=== PATIENT | female | born 1990 | race Caucasian/White ===

== ENCOUNTER 2017-02-25 07:02 | Emergency (ER) | payer MEDICAID ==
[2017-02-25] MEDS ORDERED: HYDROmorphone 0.5 MG/0.5 ML Syringe IVPUSH ONE (07:25)
[2017-02-25] MEDS ORDERED: Ondansetron 4 MG/2 ML SDV IVPUSH ONE (07:25)
[2017-02-25] MEDS ORDERED: Sodium Chloride 0.9% 1,000 ML IV SCH (07:30)
--- NOTE | 2017-02-25 07:31 | EDM.PDOC ---
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 One hour ago she developed sudden onset of severe lower abdominal cramping primarily in the suprapubic region. States is a lot of pressure in the rectal area and she's feels like she needs to have a bowel movement but could not. She has no genitourinary complaints. She reports she had an ultrasound on Tuesday but has not been given the results of this. She reports that she appreciated pinkish colored mucus on wiping this morning. Pain does have a strong colicky component and is rather continuous. No previous abdominal surgeries. At present she reports pain is 4-5 out of 10. Mild associated nausea. Onset: Today Onset Date: 02/25/17 Onset Time: 06:00 Duration: Hour(s): Location: Reports: Abdomen (Suprapubic abdomen) Quality: Reports: Ache, Other (Strong colicky component to the pain) Severity: Moderate Improves with: Reports: None (Currently rates pain as 4-5 out of 10.) Worsens with: Reports: None Context: Denies: Activity, Exercise, Lifting, Sick Contact, Trauma, Other Associated Symptoms: Reports: Nausea/Vomiting (Nausea without vomiting). 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 (see below) (None) Abdominal Pain Score (Numeric/FACES): 5 - Related Data Allergies Allergy/AdvReac Type Severity Reaction Status Date / Time phenobarbital Allergy Unknown Rash Verified 02/25/17 07:14 latex Allergy Rash Verified 02/25/17 07:14 nitrofurantoin Allergy Rash Verified 02/25/17 07:14 [From Macrobid] nitrofurantoin Allergy Rash Verified 02/25/17 07:14 macrocrystalline [From Macrobid] Home Meds: Home Meds Cephalexin [Keflex] 500 mg PO TID #24 capsule 02/25/17 [Rx] oxyCODONE HCl/Acetaminophen [Percocet 5-325 mg Tablet] 1 - 2 each PO Q4H PRN # 10 tablet 02/25/17 [Rx] Past Medical History - Past Health History Medical/Surgical History: Denies Medical/Surgical History Other Cardiovascular History: Induced HTN 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: , Other (See Below) : 3 Para: 2 (2 normal vaginal deliveries.) Other OB/BYN History: ovarian cyst Neurological History: Reports: Other (See Below) Psychiatric History: Reports: Anxiety, Depression, PTSD Endocrine/Metabolic History: Reports: Obesity/BMI 30+ - Past Surgical History HEENT Surgical History: Reports: Myringotomy w Tube(s) Social & Family History - Family History Family Medical History: Noncontributory - Tobacco Use Smoking Status *Q: Unknown Ever Smoked Years of Tobacco use: 12 Packs/Tins Daily: 0.5 Used Tobacco, but Quit: No Second Hand Smoke Exposure: Yes - Recreational Drug Use Recreational Drug Use: No - Living Situation & Occupation Living situation: Reports: Single, with Family, Other Occupation: Employed ED ROS GENERAL - Review of Systems Review Of Systems: See Below Constitutional: Reports: Other (Does appear to be in significant amount of discomfort.). Denies: Fever, Chills, Weakness, Night Sweats, Decreased Appetite , Weight Loss HEENT: Reports: No Symptoms Respiratory: Reports: No Symptoms Cardiovascular: Reports: No Symptoms Endocrine: Reports: Fatigue GI/Abdominal: Reports: Abdominal Pain : Reports: Frequency, Other (Pelvic pressure discomfort with a feeling of need to defecate but unable to do so.). Denies: Dysuria, Flank Pain, Hematuria , Incontinence, Irregular Menses, Pain, Urgency, Urinary Retention Musculoskeletal: Reports: No Symptoms Skin: Reports: No Symptoms Neurological: Reports: No Symptoms Psychiatric: Reports: No Symptoms Hematologic/Lymphatic: Reports: No Symptoms Immunologic: Reports: No Symptoms ED EXAM - Physical Exam Exam: See Below Exam Limited By: No Limitations General Appearance: Alert, WD/WN, Moderate Distress Respiratory/Chest: No Respiratory Distress, Lungs Clear, Normal Breath Sounds, Chest Non-Tender Cardiovascular: Normal Peripheral Pulses, Regular Rate, Rhythm, No Edema, No Gallop, No Murmur GI/Abdominal Exam: Soft, Non-Tender, No Organomegaly (Bowel sounds are quiet sent.), No Distention, No Abnormal Bruit, No Mass, Pelvis Stable, Tender, Abnormal Bowel Sounds. No: Rigid (Moderately tender in the suprapubic region in the lower abdomen. No guarding or rebound tenderness), Rebound Back Exam: Normal Inspection, Full Range of Motion. No: CVA Tenderness (L), CVA Tenderness (R) Extremities: Normal Inspection, Normal Range of Motion, Non-Tender, No Pedal Edema, Normal Capillary Refill Neurological: Alert, Oriented, CN II-XII Intact, Normal Cognition, Normal Gait Psychiatric: Normal Affect, Anxious Skin Exam: Warm, Dry, Intact, Normal Color, No Rash Course - Vital Signs Last Recorded V/S: Last Vital Signs Temp 36.7 C 02/25/17 07:11 Pulse 72 02/25/17 07:11 Resp 18 02/25/17 07:11 BP 118/82 02/25/17 07:11 Pulse Ox 100 02/25/17 07:11 - Orders/Labs/Meds Orders: Active Orders 24 hr Category Date Time Status CULTURE URINE [RM] Stat Lab 02/25/17 08:45 Received Labs: Laboratory Tests 02/25/17 02/25/17 02/25/17 Range/Units 07:30 07:30 07:30 WBC 8.85 (3.98-10.04) K/mm3 RBC 4.76 (3.98-5.22) M/mm3 Hgb 13.6 (11.2-15.7) gm/L Hct 41.1 (34.1-44.9) % MCV 86.3 (79.4-94.8) fl MCH 28.6 (25.6-32.2) pg MCHC 33.1 (32.2-35.5) g/dl RDW Std Deviation 41.1 (36.4-46.3) fL Plt Count 354 (182-369) K/mm3 MPV 9.3 L (9.4-12.3) fl Neutrophils % (Manual) 68 H (40-60) % Band Neutrophils % 3 (0-10) % Lymphocytes % (Manual) 25 (20-40) % Atypical Lymphs % 0 % Monocytes % (Manual) 1 L (2-10) % Eosinophils % (Manual) 1 (0.7-5.8) % Basophils % (Manual) 2 H (0.1-1.2) Platelet Estimate Adequate Plt Morphology Comment Normal RBC Morph Comment Normal Sodium 139 (136-145) mEq/L Potassium 4.0 (3.5-5.1) mEq/L Chloride 104 (98-107) mEq/L Carbon Dioxide 23 (21-32) mEq/L Anion Gap 16.0 H (5-15) BUN 9 (7-18) mg/dL Creatinine 0.6 (0.55-1.02) mg/dL Est Cr Clr Drug Dosing TNP Estimated GFR (MDRD) > 60 (>60) mL/min BUN/Creatinine Ratio 15.0 (14-18) Glucose 93 (74-106) mg/dL Calcium 8.2 L (8.5-10.1) mg/dL Total Bilirubin 0.4 (0.2-1.0) mg/dL AST 16 (15-37) U/L ALT 29 (14-59) U/L Alkaline Phosphatase 66 (46-116) U/L Total Protein 7.3 (6.4-8.2) g/dl Albumin 3.3 L (3.4-5.0) g/dl Globulin 4.0 gm/dL Albumin/Globulin Ratio 0.8 L (1-2) HCG, Quant mIU/mL Urine Color (Yellow) Urine Appearance (Clear) Urine pH (5.0-8.0) Ur Specific [place] (1.005-1.030) Urine Protein (Negative) Urine Glucose (UA) (Negative) Urine Ketones (Negative) Urine Occult Blood (Negative) Urine Nitrite (Negative) Urine Bilirubin (Negative) Urine Urobilinogen (0.2-1.0) Ur Leukocyte Esterase (Negative) Urine RBC (0-5) /hpf Urine WBC (0-5) /hpf Ur Epithelial Cells (0-5) /hpf Urine Bacteria (FEW) /hpf Urine Mucus (FEW) /hpf Blood Type A POSITIVE 02/25/17 02/25/17 Range/Units 07:30 07:45 WBC (3.98-10.04) K/mm3 RBC (3.98-5.22) M/mm3 Hgb (11.2-15.7) gm/L Hct (34.1-44.9) % MCV (79.4-94.8) fl MCH (25.6-32.2) pg MCHC (32.2-35.5) g/dl RDW Std Deviation (36.4-46.3) fL Plt Count (182-369) K/mm3 MPV (9.4-12.3) fl Neutrophils % (Manual) (40-60) % Band Neutrophils % (0-10) % Lymphocytes % (Manual) (20-40) % Atypical Lymphs % % Monocytes % (Manual) (2-10) % Eosinophils % (Manual) (0.7-5.8) % Basophils % (Manual) (0.1-1.2) Platelet Estimate Plt Morphology Comment RBC Morph Comment Sodium (136-145) mEq/L Potassium (3.5-5.1) mEq/L Chloride (98-107) mEq/L Carbon Dioxide (21-32) mEq/L Anion Gap (5-15) BUN (7-18) mg/dL Creatinine (0.55-1.02) mg/dL Est Cr Clr Drug Dosing Estimated GFR (MDRD) (>60) mL/min BUN/Creatinine Ratio (14-18) Glucose (74-106) mg/dL Calcium (8.5-10.1) mg/dL Total Bilirubin (0.2-1.0) mg/dL AST (15-37) U/L ALT (14-59) U/L Alkaline Phosphatase (46-116) U/L Total Protein (6.4-8.2) g/dl Albumin (3.4-5.0) g/dl Globulin gm/dL Albumin/Globulin Ratio (1-2) HCG, Quant 76502.0 mIU/mL Urine Color Light yellow (Yellow) Urine Appearance Slt cloudy H (Clear) Urine pH 6.5 (5.0-8.0) Ur Specific [place] 1.015 (1.005-1.030) Urine Protein Negative (Negative) Urine Glucose (UA) Negative (Negative) Urine Ketones Negative (Negative) Urine Occult Blood 1+ H (Negative) Urine Nitrite Negative (Negative) Urine Bilirubin Negative (Negative) Urine Urobilinogen 0.2 (0.2-1.0) Ur Leukocyte Esterase 1+ H (Negative) Urine RBC 0-5 (0-5) /hpf Urine WBC 20-30 H (0-5) /hpf Ur Epithelial Cells 30-40 H (0-5) /hpf Urine Bacteria Few (FEW) /hpf Urine Mucus Not seen (FEW) /hpf Blood Type Meds: Medications Discontinued Medications Generic Name Dose Route Start Last Admin Trade Name Lluvia PRN Reason Stop Dose Admin Acetaminophen 975 mg 02/25/17 08:54 02/25/17 09:16 Tylenol PO 02/25/17 08:55 975 mg NOW ONE Administration Hydromorphone HCl 0.5 mg 02/25/17 07:25 02/25/17 07:41 Dilaudid IVPUSH 02/25/17 07:26 0.5 mg ONETIME ONE Administration Sodium Chloride 1,000 mls @ 150 mls/hr 02/25/17 07:30 02/25/17 07:41 Normal Saline IV 150 mls/hr ASDIRECTED JAVIER Administration Ceftriaxone Sodium 1 gm/ 100 mls @ 200 mls/hr 02/25/17 09:02 02/25/17 09:16 Sodium Chloride IV 02/25/17 09:31 200 mls/hr ONETIME ONE Administration Ondansetron HCl 4 mg 02/25/17 07:25 02/25/17 07:41 Zofran IVPUSH 02/25/17 07:26 4 mg ONETIME ONE Administration - Radiology Interpretation Free Text/Narrative:: 26-year-old female who is 3 para 2 presents to the ED with sudden onset of diffuse lower abdominal cramping pain which is rather continuous. Strong pressure in the [place] meal area with a feeling of need to defecate but unable to do so. Associated P quiche vaginal mucousy discharge starting within the last hour. She is and estimated to be around 7 weeks gestation. 2 previous pregnancies were successful vaginal deliveries. Plan IV normal saline at 150 mils per hour. Given Zofran 4 mg IV with Dilaudid 0.5 mg IV to ease her pain. Lab work done and she will have a transvaginal ultrasound completed. - Re-Assessments/Exams Free Text/Narrative Re-Assessment/Exam: 02/25/17 09:03 analysis shows a white count of 8.85 with a 60% neutrophils and 3 % band cells. Hemoglobin 13.6 hematocrit of 41.1. Platelets are normal. Sodium was 139 potassium was normal and a gap is minimally elevated at 16.0. Urine shows 1+ leukocyte esterase and 1+ blood. It shows 20-30 white blood cells by Bebe in 30-40 epithelial cells per high power field. 02/25/17 09:04beta-hCG came back greater than 40,000 which correlates with a 7 week gestation. On my evaluation of the ultrasound it appears that she is 7 weeks 5 days with a heart rate recorded at 1 61 bpm. Abdomen maladies appreciated in the subchorionic space. There is no free fluid in the pelvis identified. Both ovaries contain some small cysts the left greater than the right I suspect the left ovary is the corpus luteum cyst. Therefore the appears to be viable and the pain is most likely secondary to bladder spasm. Will give her Rocephin 1 g intravenously due to abnormal urinalysis.she was complaining of a headache and therefore was given Tylenol 975 mg by mouth. 02/25/17 10:33patient is completed her IV Rocephin. She will therefore be discharged to home. She'll be placed on Keflex 500mg TID daily for 8 days for suspect urinary tract infection. She'll return to the ED of course if there is any further significant vaginal bleeding. I suspect occurred suprapubic pressure discomfort was due to bladder spasms. This should settle within the next 12 hours after the IV Rocephin starts to work well.patient states she is still expressing a good deal of upper abdominal discomfort. She drove herself to the hospital therefore I will not give her any pain medication here. I will give her a prescription for 10 tablets of Percocet 5/325 milligrams strength one tablet every 4-6 hours needed for pain relief. She may be getting spasm of the ureters as her urine analysis suggested upper urinary tract infection developing. Departure - Departure Time of Disposition: 10:35 Disposition: Home, Self-Care 01 Condition: Fair Clinical Impression: First trimester , Urinary tract infection, Urinary tract infection affecting - Discharge Information Prescriptions: Cephalexin [Keflex] 500 mg PO TID #24 capsule oxyCODONE HCl/Acetaminophen [Percocet 5-325 mg Tablet] 1 - 2 each PO Q4H PRN # 10 tablet PRN Reason: pain relief. Instructions: Urinary Tract Infection, Adult, First Trimester of Referrals: Dawson Donis MD [Primary Care Provider] - Forms: ED Department Discharge Additional Instructions: evaluation the emergency room this morning in regards to development of diffuse lower abdominal cramping pain with associated noted pinkish vaginal discharge. Known to be by ultrasound 7 weeks . ReSound revealed 7 weeks and 5 days with a active fetus at with a heart rate of 1 63/m. Estimated date of confinement her due date is October 12, 2017. Investigations did reveal signs of urinary tract infection with pus cells and epithelial cells in the urine. For treated with first dose of IV antibiotics with Rocephin 1 g. Will need to start anabolic cephalexin 500 mg 3 times daily for the next 8 days starting tonight at bedtime. Expect improvement of the abdominal pain within the next 6-12 hours. It is okay to take Tylenol 650 mg every 6 hours if needed for pain relief. Drink plenty of fluids today. Of course return to medical care if you develop any further significant bright red bleeding per vaginaor fever chills nausea or vomiting. Also if the abdominal pain cramping continues after 24 hours return to the ED. - My Orders Last 24 Hours: My Active Orders 02/25/17 08:45 CULTURE URINE [RM] Stat - Assessment/Plan Last 24 Hours: My Active Orders 02/25/17 08:45 CULTURE URINE [RM] Stat
[2017-02-25 08:15] VITALS: BP 118/82
[2017-02-25] MEDS ORDERED: Acetaminophen 325 MG Tab PO ONE (08:54)
--- NOTE | 2017-02-25 09:00 | US ---
First trimester obstetrical ultrasound: Multiple real-time images were obtained transvaginally. Comparison: Previous study of 02/22/17. Dates: LMP: ? Current ultrasound: JOSE LUIS 10/09/17, gestational age 7 weeks 5 days Earlier ultrasound (02/22/17): JOSE LUIS 10/12/17, gestational age 7 weeks 2 days Single intrauterine gestation is seen. Embryo is identified. Yolk sac is seen. No subchorionic hemorrhage is identified. Maternal ovaries are seen and appear within normal limits. Measurements: Sherman-rump length: 1.42 cm - 7 weeks 5 days Heart rate: 163 BPM Impression: 1. Single intrauterine gestation. Dates as noted above. 2. No complicating process is identified by ultrasound at this time. Diagnostic code #1
[2017-02-25] MEDS ORDERED: cefTRIAXone 1 GM in Sodium Chloride 0.9% 100 ML IV ONE (09:02)
== END 2017-02-25 10:56 | disposition home or self-care (01) ==
LOC: JD.ED 07:02
DX: O23.41 Unspecified infection of urinary tract in pregnancy, first trimester (principal); Z88.8 Allergy status to other drugs, medicaments and biological substances; Z3A.01 Less than 8 weeks gestation of pregnancy
CPT/HCPCS: 36415; 76817; 80053; 81001; 84702; 85025; 86900; 86901; 87086; 87088; 96361; 96365; 96375; 99284; A9270; J0696; J1170; J2405; J7030; J7040

== ENCOUNTER 2017-04-21 09:56 | Observation (INO) | payer MEDICAID ==
[2017-04-21] MEDS ORDERED: Sodium Chloride 0.9% 10 ML Syringe FLUSH PRN (13:23)
[2017-04-21] MEDS ORDERED: Loperamide 2 MG Cap PO PRN (13:27)
[2017-04-21] MEDS ORDERED: Misoprostol 200 MCG Tab PO SCH (13:30)
[2017-04-21] MEDS ORDERED: Acetaminophen 325 MG Tab PO PRN (14:04)
--- NOTE | 2017-04-21 15:15 | PCM.HP ---
<Antonia Rincon - Last Filed: 04/21/17 15:10> H&P History of Present Illness - General Date of Service: 04/21/17 Admit Problem/Dx: Admission Diagnosis/Problem Admission Diagnosis/Problem related condition Source of Information: Patient History Limitations: Reports: No Limitations - History of Present Illness Initial Comments - Free Text/Narative: The patient is a 26-yo female who presents for complications of . She was seen in clinic on 04/20/17 and heart tones were not apparent with Doppler. An ultrasound was performed, which revealed a BPD consistent with 13-0 weeks. No cardiac activity or activity noticed. demise with estimated gestational age of 13-3/7 weeks was confirmed by ultrasound in radiology. The patient chose Cytotec intervention in a hospital setting. She is accompanied by her significant other. She A+ with negative antibodies. - Related Data Allergies/Adverse Reactions: Allergies Allergy/AdvReac Type Severity Reaction Status Date / Time phenobarbital Allergy Unknown Rash Verified 04/21/17 13:16 latex Allergy Rash Verified 04/21/17 13:16 nitrofurantoin Allergy Rash Verified 04/21/17 13:16 [From Macrobid] nitrofurantoin Allergy Rash Verified 04/21/17 13:16 macrocrystalline [From Macrobid] Home Medications: Home Meds Vit W-Ca,Fe,FA(<1 mg) [ Vitamins] 1 tab PO DAILY 04/21/17 [ History] Past Medical History - Past Health History Medical/Surgical History: Denies Medical/Surgical History Other Cardiovascular History: Induced HTN 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 She was evaluated on 04/20 with colposcopy. White epithelium present at the 6 o'clock position, which appears mild in nature. Patient will be evaluated with another Pap and colposcopy once post-. Neurological History: Reports: Migraines (The patient states that she has occasional migraines. No aura.), Other (See Below) Psychiatric History: Reports: Anxiety, Depression, PTSD (The patient was prescribed sertraline on 04/20 for anxiety and depression. She has not had a chance to start this medication. She has a hx of suicidal thoughts.) Endocrine/Metabolic History: Reports: Obesity/BMI 30+ - Past Surgical History HEENT Surgical History: Reports: Myringotomy w Tube(s) Male Surgical History: Reports: Other (See Below) Social & Family History - Family History Family Medical History: Noncontributory - Tobacco Use Smoking Status *Q: Unknown Ever Smoked Years of Tobacco use: 12 Packs/Tins Daily: 0.5 Used Tobacco, but Quit: No Second Hand Smoke Exposure: Yes - Recreational Drug Use Recreational Drug Use: Yes - Living Situation & Occupation Living situation: Reports: Single, with Family, Other Occupation: Employed H&P Review of Systems - Review of Systems: Review Of Systems: See Below General: Reports: No Symptoms Pulmonary: Reports: No Symptoms Cardiovascular: Reports: No Symptoms Gastrointestinal: Reports: No Symptoms Psychiatric: Reports: Depression, Anxiety Neurological: Reports: Headache (Positive for migraine ESCOBEDO this morning. ) Hematologic/Lymphatic: Reports: No Symptoms Exam - Exam Exam: See Below - Vital Signs Weight: 100.017 kg - Exam General: Alert, Oriented, Cooperative HEENT: Conjunctiva Clear Neck: Supple (No lymphadenopathy or tenderness.) Lungs: Clear to Auscultation, Normal Respiratory Effort Cardiovascular: Regular Rate, Regular Rhythm GI/Abdominal Exam: Normal Bowel Sounds, Soft, Non-Tender (Female) Exam: Enlarged Uterus (Uterus is soft, non-tender, and palpable below the umbilicus. ) Rectal (Female) Exam: Deferred Back Exam: Normal Inspection - Patient Data Lab Results Last 24 hrs: Laboratory Results - last 24 hr 04/21/17 04/21/17 Range/Units 14:22 14:22 WBC 9.05 (3.98-10.04) K/mm3 RBC 4.39 (3.98-5.22) M/mm3 Hgb 12.7 (11.2-15.7) gm/L Hct 38.1 (34.1-44.9) % MCV 86.8 (79.4-94.8) fl MCH 28.9 (25.6-32.2) pg MCHC 33.3 (32.2-35.5) g/dl RDW Std Deviation 43.0 (36.4-46.3) fL Plt Count 322 (182-369) K/mm3 MPV 8.9 L (9.4-12.3) fl Neut % (Auto) 70.7 (34.0-71.1) % Lymph % (Auto) 18.9 L (19.3-51.7) % [place] % (Auto) 8.5 (4.7-12.5) % Eos % (Auto) 1.5 (0.7-5.8) Baso % (Auto) 0.1 (0.1-1.2) % Neut # (Auto) 6.39 H (1.56-6.13) K/mm3 Lymph # (Auto) 1.71 (1.18-3.74) K/mm3 [place] # (Auto) 0.77 H (0.24-0.36) K/mm3 Eos # (Auto) 0.14 (0.04-0.36) K/mm3 Baso # (Auto) 0.01 (0.01-0.08) K/mm3 Blood Type A POSITIVE Result Diagrams: 04/21/17 14:22 *Q Meaningful Use (ADM) - VTE *Q VTE Criteria *Q: - Stroke *Q Stroke Criteria *Q: - AMI *Q AMI Criteria *Q: Problem List Initiated/Reviewed/Updated: Yes Orders Last 24hrs: Active Orders 24 hr Category Date Time Status Patient Status [ADT] Routine ADT 04/21/17 13:24 Active Peripheral IV Care [RC] . DIRECTED Care 04/21/17 13:25 Active Up ad Anna [RC] ASDIRECTED Care 04/21/17 13:29 Active Vital Signs [RC] PER UNIT ROUTINE Care 04/21/17 13:24 Active Regular Diet [DIET] Diet 04/21/17 Dinner Active TYPE AND SCREEN [BBK] Routine Lab 04/21/17 14:22 Results Acetaminophen [Tylenol] Med 04/21/17 14:04 Active 650 mg PO Q4H PRN Loperamide [Imodium] Med 04/21/17 13:27 Active 2 mg PO ASDIRECTED PRN Misoprostol [Cytotec] Med 04/21/17 13:30 Active 800 mcg PO Q6H Nalbuphine [Nubain] Med 04/21/17 13:27 Active 10 mg IVPUSH Q2H PRN Ondansetron [Zofran] Med 04/21/17 13:23 Active 4 mg IVPUSH Q4H PRN Sodium Chloride 0.9% [Saline Flush] Med 04/21/17 13:23 Active 10 ml FLUSH ASDIRECTED PRN Peripheral IV Insertion Adult [OM.PC] Routine Oth 04/21/17 13:23 Ordered Medication Orders Acetaminophen (Tylenol) 650 mg PO Q4H PRN PRN Reason: Fever Greater Than 101 Loperamide HCl (Imodium) 2 mg PO ASDIRECTED PRN PRN Reason: Diarrhea Misoprostol (Cytotec) 800 mcg PO Q6H [facility] Last Admin: 04/21/17 14:34 Dose: 800 mcg Nalbuphine HCl (Nubain) 10 mg IVPUSH Q2H PRN PRN Reason: Pain Ondansetron HCl (Zofran) 4 mg IVPUSH Q4H PRN PRN Reason: Nausea/Vomiting Sodium Chloride (Saline Flush) 10 ml FLUSH ASDIRECTED PRN PRN Reason: Keep Vein Open Assessment/Plan Comment:: The patient is a 26-yo female who presents for complications of . She was seen in clinic on 04/20/17 and heart tones were not apparent with Doppler. An ultrasound was performed, which revealed a BPD consistent with 13-0 weeks. No cardiac activity or activity noticed. demise with estimated gestational age of 13-3/7 weeks was confirmed by ultrasound in radiology. The patient chose Cytotec intervention in a hospital setting. She is accompanied by her significant other. She A+ with negative antibodies. Assessment: 1. demise with estimated gestation age of 13-3/7 weeks. 2. Anxiety and depression 3. A+ with negative antibodies. Not a candidate for rhogam. Plan 1. Patient has received 1 dose of Cytotec 800mg PO. Will continue Cytotec per protocol. She will be offered anti-emetic and anti-diarrheal medication as needed. Will wait for passage of products of conception. The patient demonstrates understanding of the process and her questions were answered. 2. The patient will begin Sertraline once she is post-. She has a prescription waiting to be filled. 3. Will check on the patient later this evening. <Frederick Campbell - Last Filed: 04/22/17 09:15> H&P History of Present Illness - General Admit Problem/Dx: Admission Diagnosis/Problem Admission Diagnosis/Problem related condition Exam - Vital Signs Vital Signs: Last Vital Signs Temp 36.7 C 04/22/17 08:00 Pulse 74 04/22/17 08:00 Resp 16 04/22/17 08:00 BP 119/63 04/22/17 08:00 Pulse Ox 100 04/22/17 04:00 - Patient Data Lab Results Last 24 hrs: Laboratory Results - last 24 hr 04/21/17 04/21/17 Range/Units 14:22 14:22 WBC 9.05 (3.98-10.04) K/mm3 RBC 4.39 (3.98-5.22) M/mm3 Hgb 12.7 (11.2-15.7) gm/L Hct 38.1 (34.1-44.9) % MCV 86.8 (79.4-94.8) fl MCH 28.9 (25.6-32.2) pg MCHC 33.3 (32.2-35.5) g/dl RDW Std Deviation 43.0 (36.4-46.3) fL Plt Count 322 (182-369) K/mm3 MPV 8.9 L (9.4-12.3) fl Neut % (Auto) 70.7 (34.0-71.1) % Lymph % (Auto) 18.9 L (19.3-51.7) % [place] % (Auto) 8.5 (4.7-12.5) % Eos % (Auto) 1.5 (0.7-5.8) Baso % (Auto) 0.1 (0.1-1.2) % Neut # (Auto) 6.39 H (1.56-6.13) K/mm3 Lymph # (Auto) 1.71 (1.18-3.74) K/mm3 [place] # (Auto) 0.77 H (0.24-0.36) K/mm3 Eos # (Auto) 0.14 (0.04-0.36) K/mm3 Baso # (Auto) 0.01 (0.01-0.08) K/mm3 Blood Type A POSITIVE Gel Antibody Screen Negative Result Diagrams: 04/21/17 14:22 *Q Meaningful Use (ADM) - VTE *Q VTE Criteria *Q: - Stroke *Q Stroke Criteria *Q: - AMI *Q AMI Criteria *Q: Orders Last 24hrs: Active Orders 24 hr Category Date Time Status Patient Status [ADT] Routine ADT 04/21/17 13:24 Active Up ad Anna [RC] ASDIRECTED Care 04/21/17 13:29 Active Vital Signs [RC] Q4HR Care 04/21/17 13:24 Active Regular Diet [DIET] Diet 04/21/17 Dinner Active Acetaminophen [Tylenol] Med 04/21/17 14:04 Active 650 mg PO Q4H PRN Loperamide [Imodium] Med 04/21/17 13:27 Active 2 mg PO ASDIRECTED PRN Misoprostol [Cytotec] Med 04/21/17 18:30 Active 800 mcg PO Q4HR Nalbuphine [Nubain] Med 04/21/17 13:27 Active 10 mg IVPUSH Q2H PRN Ondansetron [Zofran] Med 04/21/17 13:23 Active 4 mg IVPUSH Q4H PRN Sodium Chloride 0.9% [Saline Flush] Med 04/21/17 13:23 Active 10 ml FLUSH ASDIRECTED PRN Peripheral IV Insertion Adult [OM.PC] Routine Oth 04/21/17 13:23 Ordered Medication Orders Acetaminophen (Tylenol) 650 mg PO Q4H PRN PRN Reason: Fever Greater Than 101 Loperamide HCl (Imodium) 2 mg PO ASDIRECTED PRN PRN Reason: Diarrhea Misoprostol (Cytotec) 800 mcg PO Q4HR [facility] Last Admin: 04/22/17 05:09 Dose: Not Given Admin: 04/22/17 02:58 Dose: Not Given Admin: 04/21/17 23:05 Dose: Not Given Admin: 04/21/17 23:04 Dose: 800 mcg Admin: 04/21/17 18:56 Dose: 800 mcg Nalbuphine HCl (Nubain) 10 mg IVPUSH Q2H PRN PRN Reason: Pain Last Admin: 04/21/17 22:05 Dose: 10 mg Admin: 04/21/17 19:55 Dose: 10 mg Ondansetron HCl (Zofran) 4 mg IVPUSH Q4H PRN PRN Reason: Nausea/Vomiting Last Admin: 04/22/17 03:47 Dose: 4 mg Admin: 04/21/17 18:52 Dose: 4 mg Sodium Chloride (Saline Flush) 10 ml FLUSH ASDIRECTED PRN PRN Reason: Keep Vein Open Assessment/Plan Comment:: Cytotec 800 mcg Consent to be signed for dilation and curettage
[2017-04-21] MEDS: Ondansetron 4 MG/2 ML SDV IVPUSH PRN (18:52)
[2017-04-21] MEDS: Misoprostol 200 MCG Tab PO SCH ×3 (18:56→23:05)
[2017-04-21] MEDS: Nalbuphine 20 MG/1 ML Amp IVPUSH PRN ×2 (19:55→22:05)
[2017-04-21] MEDS ORDERED: Oxytocin/Lactated Ringers 10 UNIT/1,000 ML BAG IV ONE (21:21)
[2017-04-22] MEDS: Misoprostol 200 MCG Tab PO SCH ×2 (02:58→05:09)
[2017-04-22] MEDS: Ondansetron 4 MG/2 ML SDV IVPUSH PRN (03:47)
[2017-04-22 09:01] VITALS: BP 119/63
--- NOTE | 2017-04-22 09:20 | PCM.DCSUM1 ---
Discharge Summary - Hospital Course Free Text/Narrative:: Tosin is a 26-year-old multigravida white female who was diagnosed with demise at 15 weeks gestational age adequate visit in clinic 2 days ago. She was admitted yesterday for induction of labor with Cytotec. Patient received Cytotec 800 g orally 2 doses. She slowly progressed and at approximately 0130 hrs. on 04/22/2017 patient past a nonviable fetus with size and appearance consistent with her gestational age. Evaluation of the fetus revealed no evidence of abnormalities that were readily apparent. Patient's been offered drumbi testing for genetic abnormalities. Patient is undecided about this. She was given Pitocin for short period of time to completely expel the placenta. This came out without problems. At this time she is not cramping not bleeding and there is no evidence of retained products of conception. She is desiring to be discharged. Her vital signs were stable throughout the hospital course. She did have some Nubain during the course of her labor. - Discharge Data Discharge Date: 04/22/17 Discharge Disposition: Home, Self-Care 01 Condition: Good - Patient Instructions Diet: Regular Diet as Tolerated Activity: As Tolerated (No intercourse or tampons until bleeding resolves and patient is seen back in clinic.) Driving: Do Not Drive Showering/Bathing: May Shower (May take a bath) - Discharge Plan Home Medications: Home Meds Vit W-Ca,Fe,FA(<1 mg) [ Vitamins] 1 tab PO DAILY 04/21/17 [ History] Patient Handouts: Vaginal Delivery, Loss, Care After Referrals: Frederick Campbell MD [Primary Care Provider] - (Return to clinicDr. Campbell-1 week.) - Discharge Summary/Plan Comment DC Time >30 min.: No Discharge Summary/Plan Comment: Discharge instructions: 1. Discharge home 2. Diet, activity and follow-up discussed with patient. Regular diet. 3. Precautions given concern increased pain, bleeding, temperature, signs/ symptoms of DVT/PE. 4. Medications per home medication was printed, discussed with and given to the patient. 5. Return to clinic-Dr. Campbell-[facility] in 1 weeks. Diagnosis: 15 week demise-delivered Condition: Good - Patient Data Vitals - Most Recent: Last Vital Signs Temp 36.7 C 04/22/17 08:00 Pulse 74 04/22/17 08:00 Resp 16 04/22/17 08:00 BP 119/63 04/22/17 08:00 Pulse Ox 100 04/22/17 04:00 Weight - Most Recent: 100.017 kg I&O - Last 24 hours: Intake & Output 04/21/17 04/22/17 04/22/17 22:59 06:59 14:59 Intake Total 0 Balance 0 Lab Results - Last 24 hrs: Laboratory Results - last 24 hr 04/21/17 04/21/17 Range/Units 14:22 14:22 WBC 9.05 (3.98-10.04) K/mm3 RBC 4.39 (3.98-5.22) M/mm3 Hgb 12.7 (11.2-15.7) gm/L Hct 38.1 (34.1-44.9) % MCV 86.8 (79.4-94.8) fl MCH 28.9 (25.6-32.2) pg MCHC 33.3 (32.2-35.5) g/dl RDW Std Deviation 43.0 (36.4-46.3) fL Plt Count 322 (182-369) K/mm3 MPV 8.9 L (9.4-12.3) fl Neut % (Auto) 70.7 (34.0-71.1) % Lymph % (Auto) 18.9 L (19.3-51.7) % [place] % (Auto) 8.5 (4.7-12.5) % Eos % (Auto) 1.5 (0.7-5.8) Baso % (Auto) 0.1 (0.1-1.2) % Neut # (Auto) 6.39 H (1.56-6.13) K/mm3 Lymph # (Auto) 1.71 (1.18-3.74) K/mm3 [place] # (Auto) 0.77 H (0.24-0.36) K/mm3 Eos # (Auto) 0.14 (0.04-0.36) K/mm3 Baso # (Auto) 0.01 (0.01-0.08) K/mm3 Blood Type A POSITIVE Gel Antibody Screen Negative Med Orders - Current: Current Medications Acetaminophen (Tylenol) 650 mg PO Q4H PRN PRN Reason: Fever Greater Than 101 Loperamide HCl (Imodium) 2 mg PO ASDIRECTED PRN PRN Reason: Diarrhea Misoprostol (Cytotec) 800 mcg PO Q4HR [facility] Last Admin: 04/22/17 05:09 Dose: Not Given Nalbuphine HCl (Nubain) 10 mg IVPUSH Q2H PRN PRN Reason: Pain Last Admin: 04/21/17 22:05 Dose: 10 mg Ondansetron HCl (Zofran) 4 mg IVPUSH Q4H PRN PRN Reason: Nausea/Vomiting Last Admin: 04/22/17 03:47 Dose: 4 mg Sodium Chloride (Saline Flush) 10 ml FLUSH ASDIRECTED PRN PRN Reason: Keep Vein Open Discontinued Medications Oxytocin/Lactated Ringer's (Pitocin In Lr 10 Units/1,000 Ml) Confirm Administered Dose 10 unit in 1,000 mls @ as directed IV .STK-MED ONE Stop: 04/21/17 21:22 Last Admin: 04/21/17 23:05 Dose: Not Given Oxytocin 10 unit/ Lactated (Ringer's) 1,001 mls @ 500 mls/hr IV ONETIME ONE PRN Reason: Protocol Stop: 04/22/17 00:47 Last Admin: 04/22/17 05:04 Dose: Not Given Oxytocin 10 unit/ Lactated (Ringer's) 1,001 mls @ 500 mls/hr IV ONETIME ONE PRN Reason: Protocol Stop: 04/22/17 07:00 Last Admin: 04/22/17 05:06 Dose: Not Given Oxytocin 10 unit/ Lactated (Ringer's) 1,001 mls @ 500 mls/hr IV ONETIME ONE Stop: 04/22/17 07:03 Last Admin: 04/22/17 04:35 Dose: 500 mls/hr Misoprostol (Cytotec) 800 mcg PO Q6H [facility] Last Admin: 04/21/17 14:34 Dose: 800 mcg *Q Meaningful Use (DIS) - VTE *Q VTE Criteria *Q: - Stroke *Q Stroke Criteria *Q: - AMI *Q AMI Criteria *Q:
== END 2017-04-22 09:40 | disposition home or self-care (01) ==
LOC: JD.OB 12:57 → INTOOBSV 04-22 07:00 → OBSVTOIN 04-22 07:00
PROVIDERS: ADMIT Obstetrics & Gynecology; ATTEND Obstetrics & Gynecology
DX: O02.1 Missed abortion (principal); Z88.8 Allergy status to other drugs, medicaments and biological substances; Z91.040 Latex allergy status; F41.8 Other specified anxiety disorders; O99.344 Other mental disorders complicating childbirth; O99.211 Obesity complicating pregnancy, first trimester; Z87.891 Personal history of nicotine dependence; Z3A.15 15 weeks gestation of pregnancy; Z37.1 Single stillbirth
CPT/HCPCS: 36415; 85025; 86850; 86900; 86901; 96365; 96366; 96375; 96376; A9270; G0378; J2300; J2405; J2590; J7120

== ENCOUNTER 2017-05-28 08:18 | Emergency (ER) | payer MEDICAID ==
[2017-05-28 08:36] VITALS: BP 143/100
--- NOTE | 2017-05-28 09:45 | EDM.PDOC ---
ED HPI GENERAL MEDICAL PROBLEM - General Chief Complaint: Lower Extremity Injury/Pain Stated Complaint: R LEG PAIN Time Seen by Provider: 05/28/17 09:37 - History of Present Illness INITIAL COMMENTS - FREE TEXT/NARRATIVE: 26-year-old female presents emergency room with right lower leg mid calf tibial aspect tenderness. This is been present for the last 3-4 days this occurred after vigorous activity she's not sure if she hit this against anything. She has a small area that is slightly raised slightly warm and very tender. Everybody told her she had a blood clot. She is not any breathing difficulties or shortness of breath a few weeks ago she was thought to have pneumonia was treated for this and her chest discomfort has resolved again is been gone for nearly 2 weeks. The patient has not noticed any significant swelling of this lower leg and is otherwise doing okay. Right Lower Leg Pain Score (Numeric/FACES): 5 - Related Data Allergies Allergy/AdvReac Type Severity Reaction Status Date / Time phenobarbital Allergy Unknown Rash Verified 05/28/17 08:31 latex Allergy Rash Verified 05/28/17 08:31 nitrofurantoin Allergy Rash Verified 05/28/17 08:31 [From Macrobid] nitrofurantoin Allergy Rash Verified 05/28/17 08:31 macrocrystalline [From Macrobid] Home Meds: Home Meds Naproxen [Naprosyn] 500 mg PO BID #20 tablet 05/28/17 [Rx] Sertraline [Zoloft] 50 mg PO DAILY 05/28/17 [History] Past Medical History - Past Health History Medical/Surgical History: Denies Medical/Surgical History Other Cardiovascular History: Induced HTN [employer]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 She was evaluated on 04/20 with colposcopy. White epithelium present at the 6 o'clock position, which appears mild in nature. Patient will be evaluated with another Pap and colposcopy once post-. Neurological History: Reports: Migraines, Other (See Below) Psychiatric History: Reports: Anxiety, Depression, PTSD Endocrine/Metabolic History: Reports: Obesity/BMI 30+ - Past Surgical History HEENT Surgical History: Reports: Myringotomy w Tube(s) Female Surgical History: Reports: D&C Social & Family History - Family History Family Medical History: Noncontributory - Tobacco Use Smoking Status *Q: Current Every Day Smoker Years of Tobacco use: 13 Packs/Tins Daily: 0.5 Used Tobacco, but Quit: No Second Hand Smoke Exposure: Yes - Caffeine Use Caffeine Use: Reports: Coffee, Soda - Recreational Drug Use Recreational Drug Use: No - Living Situation & Occupation Living situation: Reports: Single, with Family, Other Occupation: Employed Review of Systems - Review of Systems Review Of Systems: ROS reveals no pertinent complaints other than HPI. Constitutional: Denies: Chills, Fever Eyes: Reports: No Symptoms Ears: Reports: No Symptoms Nose: Reports: No Symptoms Mouth/Throat: Reports: No Symptoms Respiratory: Reports: No Symptoms Cardiovascular: Reports: No Symptoms GI/Abdominal: Reports: No Symptoms Genitourinary: Reports: No Symptoms Neurological: Reports: No Symptoms ED EXAM, GENERAL - Physical Exam Exam: See Below Exam Limited By: No Limitations General Appearance: Alert, No Apparent Distress Head: Atraumatic, Normocephalic Neck: Normal Inspection, Supple, Non-Tender, Full Range of Motion. No: Lymphadenopathy (L), Lymphadenopathy (R) Respiratory/Chest: No Respiratory Distress, Lungs Clear, Normal Breath Sounds Cardiovascular: Regular Rate, Rhythm, No Edema, No Murmur GI/Abdominal: Normal Bowel Sounds, Soft, Non-Tender Back Exam: Normal Inspection. No: CVA Tenderness (L), CVA Tenderness (R) Extremities: No Pedal Edema, Other (Close examination of her right lower leg shows an area that could be consistent with a very superficial phlebitis. Roughly 2-1/2 cm circular minimally raised minimally warm minimally erythematous is exquisitely tender to palpation. No deep calf tenderness and over the superficial venous system however palpation proximal to this all the way up to the knee is nontender deep calf tenderness is not present.) Neurological: Alert, Oriented, Normal Cognition Course - Vital Signs Last Recorded V/S: Last Vital Signs Temp 35.9 C 05/28/17 08:33 Pulse 75 05/28/17 08:33 Resp 18 05/28/17 09:59 BP 143/100 H 05/28/17 08:33 Pulse Ox 100 05/28/17 08:33 - Orders/Labs/Meds Orders: Active Orders 24 hr Category Date Time Status VL Duplex Lwr Ext Veins Ltd Rt [US] Stat Exams 05/28/17 10:54 Taken Labs: Laboratory Tests 05/28/17 05/28/17 05/28/17 Range/Units 10:00 10:00 10:00 WBC 9.83 (3.98-10.04) K/mm3 RBC 4.51 (3.98-5.22) M/mm3 Hgb 11.7 (11.2-15.7) gm/L Hct 37.3 (34.1-44.9) % MCV 82.7 (79.4-94.8) fl MCH 25.9 (25.6-32.2) pg MCHC 31.4 L (32.2-35.5) g/dl RDW Std Deviation 40.9 (36.4-46.3) fL Plt Count 502 H (182-369) K/mm3 MPV 9.2 L (9.4-12.3) fl Neutrophils % (Manual) 66 H (40-60) % Band Neutrophils % 0 (0-10) % Lymphocytes % (Manual) 27 (20-40) % Atypical Lymphs % 0 % Monocytes % (Manual) 6 (2-10) % Eosinophils % (Manual) 1 (0.7-5.8) % Basophils % (Manual) 0 L (0.1-1.2) Platelet Estimate Increased Hypochromasia 1+ slight Anisocytosis 2+ moderate RBC Morph Comment Abnormal PT 10.0 (8.0-13.0) SECONDS INR 0.92 APTT 25 (22-36) SECONDS D-Dimer, Quantitative 2.55 H (0.19-0.59) mg/L Sodium (136-145) mEq/L Potassium (3.5-5.1) mEq/L Chloride (98-107) mEq/L Carbon Dioxide (21-32) mEq/L Anion Gap (5-15) BUN (7-18) mg/dL Creatinine (0.55-1.02) mg/dL Est Cr Clr Drug Dosing mL/min Estimated GFR (MDRD) (>60) mL/min BUN/Creatinine Ratio (14-18) Glucose (74-106) mg/dL Calcium (8.5-10.1) mg/dL Total Bilirubin (0.2-1.0) mg/dL AST (15-37) U/L ALT (14-59) U/L Alkaline Phosphatase (46-116) U/L Total Protein (6.4-8.2) g/dl Albumin (3.4-5.0) g/dl Globulin gm/dL Albumin/Globulin Ratio (1-2) HCG, Qual (NEGATIVE) 05/28/17 05/28/17 Range/Units 10:00 10:00 WBC (3.98-10.04) K/mm3 RBC (3.98-5.22) M/mm3 Hgb (11.2-15.7) gm/L Hct (34.1-44.9) % MCV (79.4-94.8) fl MCH (25.6-32.2) pg MCHC (32.2-35.5) g/dl RDW Std Deviation (36.4-46.3) fL Plt Count (182-369) K/mm3 MPV (9.4-12.3) fl Neutrophils % (Manual) (40-60) % Band Neutrophils % (0-10) % Lymphocytes % (Manual) (20-40) % Atypical Lymphs % % Monocytes % (Manual) (2-10) % Eosinophils % (Manual) (0.7-5.8) % Basophils % (Manual) (0.1-1.2) Platelet Estimate Hypochromasia Anisocytosis RBC Morph Comment PT (8.0-13.0) SECONDS INR APTT (22-36) SECONDS D-Dimer, Quantitative (0.19-0.59) mg/L Sodium 142 (136-145) mEq/L Potassium 4.4 (3.5-5.1) mEq/L Chloride 106 (98-107) mEq/L Carbon Dioxide 26 (21-32) mEq/L Anion Gap 14.4 (5-15) BUN 10 (7-18) mg/dL Creatinine 0.7 (0.55-1.02) mg/dL Est Cr Clr Drug Dosing 105.17 mL/min Estimated GFR (MDRD) > 60 (>60) mL/min BUN/Creatinine Ratio 14.3 (14-18) Glucose 87 (74-106) mg/dL Calcium 8.8 (8.5-10.1) mg/dL Total Bilirubin 0.3 (0.2-1.0) mg/dL AST 20 (15-37) U/L ALT 25 (14-59) U/L Alkaline Phosphatase 73 (46-116) U/L Total Protein 7.6 (6.4-8.2) g/dl Albumin 3.3 L (3.4-5.0) g/dl Globulin 4.3 gm/dL Albumin/Globulin Ratio 0.8 L (1-2) HCG, Qual Negative (NEGATIVE) - Re-Assessments/Exams Free Text/Narrative Re-Assessment/Exam: 05/28/17 14:20 Patient had a d-dimer done it was positive follow-up labs and a lower leg Doppler were obtained lower leg Doppler was normal labs for the most part normal. Departure - Departure Time of Disposition: 14:11 Disposition: Home, Self-Care 01 Clinical Impression: Contusion of right lower leg - Discharge Information Prescriptions: Naproxen [Naprosyn] 500 mg PO BID #20 tablet Referrals: Dawson Donis MD [Primary Care Provider] - Forms: ED Department Discharge Additional Instructions: Return to the emergency room with any questions problems worsening symptoms. You been started on Naprosyn this is a Motrin-like medication however he only up to take it twice daily but did take it with meals. Do not take Motrin or ibuprofen along with this. You may take Tylenol with this however. Use warm moist heat to the tender area for about 20 minutes every 2-1/2-3 hours while awake. Follow-up with your regular physician in 7-10 days for recheck. - My Orders Last 24 Hours: My Active Orders 05/28/17 10:54 VL Duplex Lwr Ext Veins Ltd Rt [US] Stat - Assessment/Plan Last 24 Hours: My Active Orders 05/28/17 10:54 VL Duplex Lwr Ext Veins Ltd Rt [US] Stat
--- NOTE | 2017-05-29 12:54 | US ---
Right lower extremity deep venous ultrasound: Duplex and color flow imaging was obtained of the right common femoral, proximal greater saphenous, superficial femoral, popliteal, posterior tibial and peroneal veins. Left common femoral vein was also evaluated. Findings: Superficial femoral vein and calf veins not optimally seen to allow for good compression. Veins show normal phasic flow and augmentation. Impression: 1. Incidental findings as noted above. No evidence of deep venous thrombosis is seen within the right lower extremity or within the left common femoral vein. Diagnostic code #2
== END 2017-05-28 14:25 | disposition home or self-care (01) ==
LOC: JD.ED 08:18
DX: S80.11XA Contusion of right lower leg, initial encounter (principal); F17.210 Nicotine dependence, cigarettes, uncomplicated; Z88.8 Allergy status to other drugs, medicaments and biological substances; Z79.899 Other long term (current) drug therapy; X58.XXXA Exposure to other specified factors, initial encounter
CPT/HCPCS: 36415; 80053; 84703; 85025; 85379; 85610; 85730; 93971-26-RT; 93971-RT; 99283; 99284-25

== ENCOUNTER 2018-09-12 03:13 | Inpatient (IN) | payer MEDICAID ==
[2018-09-12] MEDS ORDERED: ceFAZolin 1 GM in Premix Bag 1 BAG IV ONE (06:08)
[2018-09-12] MEDS ORDERED: Citric Acid/Sodium Citrate Solution 30 ML Cup PO ONE (06:08)
[2018-09-12] MEDS ORDERED: ceFAZolin 2 GM in Premix Bag 1 BAG IV ONE (06:08)
[2018-09-12] MEDS ORDERED: Sodium Chloride 0.9% 10 ML Syringe FLUSH PRN (06:08)
[2018-09-12] MEDS ORDERED: Nalbuphine 20 MG/ML 1 ML Syringe IVPUSH PRN (06:08)
[2018-09-12] MEDS ORDERED: Metoclopramide 10 MG/2 ML SDV IVPUSH ONE (06:08)
[2018-09-12] MEDS ORDERED: Oxytocin/Lactated Ringers 10 UNIT/1,000 ML BAG IV SCH (06:15)
[2018-09-12] MEDS ORDERED: Bupivacaine 0.5% 30 ML SDV ONE (07:44)
--- NOTE | 2018-09-12 07:57 | PCM.PREANE ---
Preanesthetic Assessment - Anesthesia/Transfusion/Family Hx Anesthesia History: Prior Anesthesia Without Reaction Family History of Anesthesia Reaction: Yes (reports "mom had an allergic reaction to anesthesia") Transfusion History: No Prior Transfusion(s) - Review of Systems General: No Symptoms Pulmonary: No Symptoms Cardiovascular: Dyspnea on Exertion Gastrointestinal: Nausea Neurological: No Symptoms - Physical Assessment NPO Status Date: 09/11/18 NPO Status Time: 00:00 Pulse: 88 O2 Sat by Pulse Oximetry: 97 Respiratory Rate: 16 Blood Pressure: 158/101 Temperature: 36.8 C Vital Signs: Last Vital Signs Temp 36.8 C 09/12/18 03:55 Pulse 88 09/12/18 03:55 Resp 16 09/12/18 03:55 BP 158/101 H 09/12/18 03:55 Pulse Ox 97 09/12/18 03:55 Height: 1.63 m Weight: 124.738 kg ASA Class: 2 Mental Status: Alert & Oriented x3 Airway Class: Mallampati = 2 Dentition: Reports: Normal Dentition Thyro-Mental Finger Breadths: 2 Mouth Opening Finger Breadths: 2 ROM/Head Extension: Full Lungs: Clear to Auscultation, Normal Respiratory Effort Cardiovascular: Regular Rate, Regular Rhythm - Lab Values: Laboratory Last Values WBC 9.58 K/mm3 (3.98-10.04) 09/12/18 04:30 RBC 4.49 M/mm3 (3.98-5.22) 09/12/18 04:30 Hgb 12.8 gm/L (11.2-15.7) 09/12/18 04:30 Hct 39.2 % (34.1-44.9) 09/12/18 04:30 MCV 87.3 fl (79.4-94.8) 09/12/18 04:30 MCH 28.5 pg (25.6-32.2) 09/12/18 04:30 MCHC 32.7 g/dl (32.2-35.5) 09/12/18 04:30 RDW Std Deviation 60.3 fL (36.4-46.3) H 09/12/18 04:30 Plt Count 271 K/mm3 (182-369) 09/12/18 04:30 MPV 9.8 fl (9.4-12.3) 09/12/18 04:30 Neut % (Auto) 71.3 % (34.0-71.1) H 09/12/18 04:30 Lymph % (Auto) 18.3 % (19.3-51.7) L 09/12/18 04:30 [place] % (Auto) 7.6 % (4.7-12.5) 09/12/18 04:30 Eos % (Auto) 2.0 (0.7-5.8) 09/12/18 04:30 Baso % (Auto) 0.3 % (0.1-1.2) 09/12/18 04:30 Neut # (Auto) 6.83 K/mm3 (1.56-6.13) H 09/12/18 04:30 Lymph # (Auto) 1.75 K/mm3 (1.18-3.74) 09/12/18 04:30 [place] # (Auto) 0.73 K/mm3 (0.24-0.36) H 09/12/18 04:30 Eos # (Auto) 0.19 K/mm3 (0.04-0.36) 09/12/18 04:30 Baso # (Auto) 0.03 K/mm3 (0.01-0.08) 09/12/18 04:30 BUN 8 mg/dL (7-18) 09/12/18 04:30 Creatinine 0.6 mg/dL (0.55-1.02) 09/12/18 04:30 Est Cr Clr Drug Dosing 121.62 mL/min 09/12/18 04:30 Estimated GFR (MDRD) > 60 mL/min (>60) 09/12/18 04:30 Uric Acid 6.1 mg/dL (2.6-6.0) H 09/12/18 04:30 AST 23 U/L (15-37) 09/12/18 04:30 ALT 21 U/L (14-59) 09/12/18 04:30 Lactate Dehydrogenase 154 U/L (81-234) 09/12/18 04:30 Urine Color Yellow (Yellow) 09/12/18 04:45 Urine Appearance Clear (Clear) 09/12/18 04:45 Urine pH 6.0 (5.0-8.0) 09/12/18 04:45 Ur Specific [place] 1.025 (1.005-1.030) 09/12/18 04:45 Urine Protein 1+ (Negative) H 09/12/18 04:45 Urine Glucose (UA) Negative (Negative) 09/12/18 04:45 Urine Ketones Trace (Negative) H 09/12/18 04:45 Urine Occult Blood Negative (Negative) 09/12/18 04:45 Urine Nitrite Negative (Negative) 09/12/18 04:45 Urine Bilirubin Negative (Negative) 09/12/18 04:45 Urine Urobilinogen 0.2 (0.2-1.0) 09/12/18 04:45 Ur Leukocyte Esterase Negative (Negative) 09/12/18 04:45 Membrane Rupture Negative 09/12/18 03:45 - Allergies Allergies/Adverse Reactions: Allergies Allergy/AdvReac Type Severity Reaction Status Date / Time phenobarbital Allergy Unknown Rash Verified 04/07/18 21:46 latex Allergy Rash Verified 04/07/18 21:46 nitrofurantoin Allergy Rash Verified 04/07/18 21:46 [From Macrobid] nitrofurantoin Allergy Rash Verified 04/07/18 21:46 macrocrystalline [From Macrobid] - Anesthesia Plan Pre-Op Medication Ordered: Antacids - Acknowledgements Anesthesia Type Planned: Spinal Pt an Appropriate Candidate for the Planned Anesthesia: Yes Alternatives and Risks of Anesthesia Discussed w Pt/Guardian: Yes Pt/Guardian Understands and Agrees with Anesthesia Plan: Yes PreAnesthesia Questionnaire - Past Health History Medical/Surgical History: Denies Medical/Surgical History Cardiovascular History: Reports: Other (See Below) Other Cardiovascular History: Induced HTN Gastrointestinal History: Reports: GERD Genitourinary History: Reports: STD 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 She was evaluated on 04/20 with colposcopy. White epithelium present at the 6 o'clock position, which appears mild in nature. Patient will be evaluated with another Pap and colposcopy once post-. Neurological History: Reports: Migraines, Other (See Below) Psychiatric History: Reports: Anxiety, Depression, PTSD Endocrine/Metabolic History: Reports: Obesity/BMI 30+ Hematologic History: Reports: Anemia - Infectious Disease History Infectious Disease History: Reports: Human Papilloma Virus (HPV) - Past Surgical History HEENT Surgical History: Reports: Myringotomy w Tube(s) Female Surgical History: Reports: D&C - SUBSTANCE USE Smoking Status *Q: Current Some Day Smoker Tobacco Use Within Last Twelve Months: Cigarettes Second Hand Smoke Exposure: Yes Days Per Week of Alcohol Use: 0 Number of Drinks Per Day: 0 Total Drinks Per Week: 0 Recreational Drug Use History: No - HOME MEDS Home Medications: Home Meds PNV95/Ferrous Fumarate/FA [ Tablet] 1 each PO BID 08/02/18 [History] Ferrous Sulfate [Iron] 325 mg PO DAILY 09/12/18 [History] - CURRENT (IN HOUSE) MEDS Current Meds: Current Medications Lactated Ringer's (Ringers, Lactated) 1,000 mls @ 125 mls/hr IV ASDIRECTED JAVIER Oxytocin/Lactated Ringer's (Pitocin In Lr 10 Units/1,000 Ml) 10 unit in 1,000 mls @ 100 mls/hr IV ASDIRECTED JAVIER; Protocol Nalbuphine HCl (Nubain) 10 mg IVPUSH Q2H PRN PRN Reason: pain Sodium Chloride (Saline Flush) 10 ml FLUSH ASDIRECTED PRN PRN Reason: Keep Vein Open Discontinued Medications Bupivacaine HCl (Marcaine 0.5%) Confirm Administered Dose 30 ml .ROUTE .STK-MED ONE Stop: 09/12/18 07:45 Citric Acid/Sodium Citrate (Bicitra Solution) 30 ml PO ONETIME ONE Stop: 09/12/18 06:09 Cefazolin Sodium/Dextrose 1 gm (/ Premix) 50 mls @ 100 mls/hr IV ONETIME ONE Stop: 09/12/18 06:37 Cefazolin Sodium/Dextrose 2 gm (/ Premix) 50 mls @ 100 mls/hr IV ONETIME ONE Stop: 09/12/18 06:37 Metoclopramide HCl (Reglan) 10 mg IVPUSH ONETIME ONE Stop: 09/12/18 06:09
[2018-09-12] MEDS ORDERED: Metoclopramide 10 MG/2 ML SDV ONE (09:13)
[2018-09-12] MEDS ORDERED: Citric Acid/Sodium Citrate Solution 30 ML Cup ONE (09:14)
[2018-09-12] MEDS: Lactated Ringers 1,000 ML IV SCH ×2 (09:17→09:18)
--- NOTE | 2018-09-12 09:59 | PCM.LDHP ---
L&D History of Present Illness - General Date of Service: 09/12/18 Admit Problem/Dx: Patient Status Order with Admit Dx/Problem 09/12/18 03:55 Patient Status [ADT] Routine 09/12/18 06:08 Patient Status [ADT] Routine Admission Diagnosis/Problem Admission Diagnosis/Problem 09/12/18 09:48 38-1/7 week intrauterine , elevated blood pressures, history of macrosomic baby Source of Information: Patient History Limitations: Reports: No Limitations - History of Present Illness Introduction:: Jaz briscoe 27-year-old 4 para 2011 white female was admitted early this a.m. with suspected rupture membranes. fibronectin however was negative and patient has not had any further leakage of fluid. She was noted however to have blood pressures in the 150s to 170s over 90s to 100s. Because of this preeclampsia labs were performed. There were remarkable only for uric acid of 6.1 and 1+ protein. Her liver function studies specifically along with her platelets and hemoglobin were within normal limits. She was scheduled for a primary section next week but will undergo primary section today because of the elevated blood pressures. The procedure, risks, benefits, alternatives of care including attempt at vaginal [id number] discussed with the patient. They've been previously discussed also. She appears to understand and wishes to proceed and signed a consent. 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 She had 2 previous vaginal deliveries. Her last menstrual period was uncertain and ultrasound was dated by an early ultrasound done on 02/28/2018. Her JOSE LUIS is set at 09/24/2018 by this ultrasound. This places her at 38-1/7 weeks gestational age upon admission. Patient has irregular menses at 16-36 days. Not using any control time conception. Last menstrual period uncertain. Ree aleksandr course has been remarkable for abdominal pain. She has a history of EDGAR-1 on Pap smear and colposcopy. She will be bottle bottlefeeding. She declines flu vaccination. She declined T Dap vaccination. She declined genetic testing. Her group B strep screen is positive. Sims depression screening score is 12/30. She has history of depression. She did have a demise at 15 weeks with her previous . Risk factors for the include obesity and history of smoking. She is rubella positive/immune. Patient's course started on 02/28/2018 at 10-2/7 weeks. JOSE LUIS was set by ultrasound at that time at 09/24/2018. Patient was seen on a regular basis during the course of . Awakens been from 241.4-273 pounds. Fundal height has been ahead of schedule. She has had number of ultrasounds placing the baby at the 97th percentile. Last ultrasound done on 09/08/2018 showed an estimated weight of 3997 g (8 lbs. 13 oz.). Decision was made to do a primary section because of previous difficulties having deliveries. Her previous delivery weights were 8 lbs. 3 oz. and 7 lbs. 2 oz. Both babies were males. Her last live delivery was 09/06/2015 and 1 preceding that was 2013. Laboratory testing and shows blood to be a positive. Advised screen is negative. First hemoglobin was 13.3 g/dL. Platelets are 387,000. Rubella titer shows immunity. RPR is nonreactive. First urine culture showed Gardnerella vaginalis which was treated. Her GC and chlamydia were both negative. Second trimester labs showed hemoglobin of 11.4 and grams per deciliter and platelets at 408,000. Her 1 hour GTT was elevated and a three- hour glucose tolerance test showed a fasting blood sugar of 98. Her 1 hour Lugol 's was 137. 2R glucose is 165 and her 3 hour glucose was 116. Patient does not have a diagnosis of gestational. Hemoglobin on 08/02/2018 was 11.8. Platelets are 2 368,000. RPR was nonreactive. Group B strep screen positive. Allergies: 1. Phenobarbital which causes a rash 2. Macrobid which causes hives/itching 3. Latex gloves. Medications: See medication list. Past medical history: 1. Vaginal delivery 2 2. 15 week demise. 3. Obesity 4. Abnormal passer with EDGAR-1 diagnosed. 5. Anxiety and depression with previous pregnancies. Past surgical history: negative Family history: Patient had 2 sons that are alive and well the exception 4-year- old is undergoing testing for anger management issues. Mother is alive and well. Father is unknown. One brother 1 sister alive and well. Maternal grandfather secondary to an AR. Maternal grandmother is alive and well but on thyroid medication and has a history of breast cancer. Paternal grandfather and paternal grandmother histories are unknown. There is no family history of cancer, related issues or anesthesia problems except for one grandmother with breast cancer. Maternal cousin with complications. Social history: Patient is single. Significant other is Jeromy Brice. She is a high school graduate. She works at [email or web address]. She does not use any significant most alcohol, drugs but has smoked during the course of . Review of systems: In general patient has no complaints. Baby has been active. She is no longer reporting any leakage of fluid. Skin: Negative Lungs: No infectious symptoms or shortness of breath Cardiovascular: No chest pain or exercise intolerance Breasts: No lumps, changes in size, pain, dimpling, discharge or axillary or supraclavicular concerns. GI: Negative : Negative Musculoskeletal: Negative Neurological: Negative In general the patient is well-developed, well-nourished, pleasant female of stated age in no acute distress. Morbidly obese female who is alert and oriented 3. Skin is warm dry without lesions. HEENT, neck and back within normal limits. Lungs are clear with good breath sounds in all lung vincent. Cardiovascular exam shows regular and rhythm without murmurs. Abdomen is gravid with fat last fundal height at 49 cm. Baby felt to be in vertex presentation by ultrasound. Genital not performed. Extremities and neurological exam are grossly within normal limits. - Related Data Allergies/Adverse Reactions: Allergies Allergy/AdvReac Type Severity Reaction Status Date / Time phenobarbital Allergy Unknown Rash Verified 04/07/18 21:46 latex Allergy Rash Verified 04/07/18 21:46 nitrofurantoin Allergy Rash Verified 04/07/18 21:46 [From Macrobid] nitrofurantoin Allergy Rash Verified 04/07/18 21:46 macrocrystalline [From Macrobid] Home Medications: Home Meds PNV95/Ferrous Fumarate/FA [ Tablet] 1 each PO BID 08/02/18 [History] Ferrous Sulfate [Iron] 325 mg PO DAILY 09/12/18 [History] Past Medical History - Past Health History Medical/Surgical History: Denies Medical/Surgical History Cardiovascular History: Reports: Other (See Below) Other Cardiovascular History: Induced HTN Gastrointestinal History: Reports: GERD Genitourinary History: Reports: STD 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 She was evaluated on 04/20 with colposcopy. White epithelium present at the 6 o'clock position, which appears mild in nature. Patient will be evaluated with another Pap and colposcopy once post-. Neurological History: Reports: Migraines, Other (See Below) Psychiatric History: Reports: Anxiety, Depression, PTSD Endocrine/Metabolic History: Reports: Obesity/BMI 30+ Hematologic History: Reports: Anemia - Infectious Disease History Infectious Disease History: Reports: Human Papilloma Virus (HPV) - Past Surgical History HEENT Surgical History: Reports: Myringotomy w Tube(s) Female Surgical History: Reports: D&C Social & Family History - Family History Family Medical History: Noncontributory - Tobacco Use Smoking Status *Q: Current Some Day Smoker Years of Tobacco use: 14 Packs/Tins Daily: 0.5 Used Tobacco, but Quit: No Second Hand Smoke Exposure: Yes - Caffeine Use Caffeine Use: Reports: Coffee, Soda - Alcohol Use Days Per Week of Alcohol Use: 0 Number of Drinks Per Day: 0 Total Drinks Per Week: 0 - Recreational Drug Use Recreational Drug Use: No - Living Situation & Occupation Living situation: Reports: Single, with Family, Other Occupation: Employed H&P Review of Systems - Review of Systems: Review Of Systems: See Below L&D Exam - Exam Exam: See Below - Vital Signs Vital Signs: Last Vital Signs Temp 36.8 C 09/12/18 08:02 Pulse 88 09/12/18 08:02 Resp 16 09/12/18 08:02 BP 158/101 H 09/12/18 08:02 Pulse Ox 97 09/12/18 08:02 Weight: 124.738 kg - Patient Data Lab Results Last 24 hrs: Laboratory Results - last 24 hr 09/12/18 09/12/18 09/12/18 Range/Units 03:45 04:30 04:30 WBC 9.58 (3.98-10.04) K/mm3 RBC 4.49 (3.98-5.22) M/mm3 Hgb 12.8 (11.2-15.7) gm/L Hct 39.2 (34.1-44.9) % MCV 87.3 (79.4-94.8) fl MCH 28.5 (25.6-32.2) pg MCHC 32.7 (32.2-35.5) g/dl RDW Std Deviation 60.3 H (36.4-46.3) fL Plt Count 271 (182-369) K/mm3 MPV 9.8 (9.4-12.3) fl Neut % (Auto) 71.3 H (34.0-71.1) % Lymph % (Auto) 18.3 L (19.3-51.7) % [place] % (Auto) 7.6 (4.7-12.5) % Eos % (Auto) 2.0 (0.7-5.8) Baso % (Auto) 0.3 (0.1-1.2) % Neut # (Auto) 6.83 H (1.56-6.13) K/mm3 Lymph # (Auto) 1.75 (1.18-3.74) K/mm3 [place] # (Auto) 0.73 H (0.24-0.36) K/mm3 Eos # (Auto) 0.19 (0.04-0.36) K/mm3 Baso # (Auto) 0.03 (0.01-0.08) K/mm3 BUN 8 (7-18) mg/dL Creatinine 0.6 (0.55-1.02) mg/dL Est Cr Clr Drug Dosing 121.62 mL/min Estimated GFR (MDRD) > 60 (>60) mL/min Uric Acid 6.1 H (2.6-6.0) mg/dL AST 23 (15-37) U/L ALT 21 (14-59) U/L Lactate Dehydrogenase 154 (81-234) U/L Urine Color (Yellow) Urine Appearance (Clear) Urine pH (5.0-8.0) Ur Specific [place] (1.005-1.030) Urine Protein (Negative) Urine Glucose (UA) (Negative) Urine Ketones (Negative) Urine Occult Blood (Negative) Urine Nitrite (Negative) Urine Bilirubin (Negative) Urine Urobilinogen (0.2-1.0) Ur Leukocyte Esterase (Negative) Membrane Rupture Negative Blood Type Gel Antibody Screen 09/12/18 09/12/18 Range/Units 04:30 04:45 WBC (3.98-10.04) K/mm3 RBC (3.98-5.22) M/mm3 Hgb (11.2-15.7) gm/L Hct (34.1-44.9) % MCV (79.4-94.8) fl MCH (25.6-32.2) pg MCHC (32.2-35.5) g/dl RDW Std Deviation (36.4-46.3) fL Plt Count (182-369) K/mm3 MPV (9.4-12.3) fl Neut % (Auto) (34.0-71.1) % Lymph % (Auto) (19.3-51.7) % [place] % (Auto) (4.7-12.5) % Eos % (Auto) (0.7-5.8) Baso % (Auto) (0.1-1.2) % Neut # (Auto) (1.56-6.13) K/mm3 Lymph # (Auto) (1.18-3.74) K/mm3 [place] # (Auto) (0.24-0.36) K/mm3 Eos # (Auto) (0.04-0.36) K/mm3 Baso # (Auto) (0.01-0.08) K/mm3 BUN (7-18) mg/dL Creatinine (0.55-1.02) mg/dL Est Cr Clr Drug Dosing mL/min Estimated GFR (MDRD) (>60) mL/min Uric Acid (2.6-6.0) mg/dL AST (15-37) U/L ALT (14-59) U/L Lactate Dehydrogenase (81-234) U/L Urine Color Yellow (Yellow) Urine Appearance Clear (Clear) Urine pH 6.0 (5.0-8.0) Ur Specific [place] 1.025 (1.005-1.030) Urine Protein 1+ H (Negative) Urine Glucose (UA) Negative (Negative) Urine Ketones Trace H (Negative) Urine Occult Blood Negative (Negative) Urine Nitrite Negative (Negative) Urine Bilirubin Negative (Negative) Urine Urobilinogen 0.2 (0.2-1.0) Ur Leukocyte Esterase Negative (Negative) Membrane Rupture Blood Type A POSITIVE Gel Antibody Screen Negative Result Diagrams: 09/12/18 04:30 09/12/18 04:30 Problem List Initiated/Reviewed/Updated: Yes Orders Last 24hrs: Active Orders 24 hr Category Date Time Status Patient Status [ADT] Routine ADT 09/12/18 06:08 Active Communication Order [RC] ROUTINE Care 09/12/18 06:08 Active Heart Tones [RC] PER UNIT ROUTINE Care 09/12/18 06:08 Active Non Stress Test [RC] PER UNIT ROUTINE Care 09/12/18 03:55 Active Peripheral IV Care [RC] Q2HR Care 09/12/18 06:09 Active Procedure Site Prep Instruct [RC] ASDIRECTED Care 09/12/18 06:08 Active Urinary Catheter Assessment [RC] Q4HR Care 09/12/18 06:08 Active Verify Patient Consent Obtain [RC] PER UNIT ROUTINE Care 09/12/18 06:08 Active Vital Signs [RC] PER UNIT ROUTINE Care 09/12/18 03:55 Active RAPID PLASMA REAGIN,RPR [CHEM] Routine Lab 09/12/18 04:30 Received Lactated Ringers [Ringers, Lactated] 1,000 ml Med 09/12/18 06:15 Active IV ASDIRECTED Nalbuphine [Nubain] Med 09/12/18 06:08 Active 10 mg IVPUSH Q2H PRN Oxytocin/Lactated Ringers [Pitocin in LR 10 Units/1,000 Med 09/12/18 06:15 Active ML] 10 unit in 1,000 ml IV ASDIRECTED Sodium Chloride 0.9% [Saline Flush] Med 09/12/18 06:08 Active 10 ml FLUSH ASDIRECTED PRN PIH Panel [OM.PC] Stat Oth 09/12/18 04:14 Ordered Peripheral IV Insertion Adult [OM.PC] Routine Oth 09/12/18 06:08 Ordered Schedule Procedure [COMM] Per Unit Routine Oth 09/12/18 06:08 Ordered Resuscitation Status Routine Resus Stat 09/12/18 03:55 Ordered Medication Orders Lactated Ringer's (Ringers, Lactated) 1,000 mls @ 125 mls/hr IV ASDIRECTED JAVIER Last Admin: 09/12/18 09:18 Dose: 500 mls/hr Infusion: 09/12/18 09:18 Dose: 5,600 mls/hr Admin: 09/12/18 09:17 Dose: 5,600 mls/hr Oxytocin/Lactated Ringer's (Pitocin In Lr 10 Units/1,000 Ml) 10 unit in 1,000 mls @ 100 mls/hr IV ASDIRECTED JAVIER; Protocol Nalbuphine HCl (Nubain) 10 mg IVPUSH Q2H PRN PRN Reason: pain Sodium Chloride (Saline Flush) 10 ml FLUSH ASDIRECTED PRN PRN Reason: Keep Vein Open Assessment/Plan Comment:: 1.38-1/7 week intrauterine , elevated blood pressures with elevated uric acid and 1+ protein. Suspected gestational hypertension versus transient hypertension of 2. History of macrosomic baby per clinical exam and ultrasound evaluation with desire for primary section per patient. 3. Comorbidities include massive obesity 4. Patient plans to bottle feed 5. Plans to do spinal block for anesthesia. 6. Multiple allergies as listed Plan: 1. Primary lower uterine segment transverse section through Pfannenstiel skin incision under spinal block 2. Ancef for preoperative infection prophylaxis. 3. DVT prophylaxis with SCDs 4. Routine preoperative labs and orders 5. Fast Food Fry Cook in attendance for delivery. 6. Rubella immune
[2018-09-12] MEDS ORDERED: Ketorolac 30 MG/ML SDV ONE (10:03)
[2018-09-12] MEDS ORDERED: Oxytocin 10 Units/1 ML SDV ONE (10:03)
[2018-09-12] MEDS ORDERED: Ondansetron 4 MG/2 ML SDV ONE (10:03)
[2018-09-12] MEDS ORDERED: Morphine PF 1 MG/ML Amp ONE (10:03)
[2018-09-12] MEDS ORDERED: ceFAZolin 1 GM Vial ONE ×2 (10:25→10:35)
[2018-09-12] MEDS ORDERED: diphenhydrAMINE 50 MG/ML SDV ONE (10:57)
[2018-09-12] MEDS ORDERED: diphenhydrAMINE 50 MG/ML SDV IVPUSH PRN (11:24)
[2018-09-12] MEDS ORDERED: Ondansetron 4 MG/2 ML SDV IVPUSH PRN (11:24)
--- NOTE | 2018-09-12 11:26 | PCM.POSTAN ---
POST ANESTHESIA ASSESSMENT - MENTAL STATUS Mental Status: Alert - VITAL SIGNS Pulse Rate: 66 SaO2: 97 Resp Rate: 21 Blood Pressure: 117/64 Temperature: 36.8 C - RESPIRATORY Respiratory Status: Respiratory Rate WNL, Airway Patent, O2 Saturation Stable - CARDIOVASCULAR CV Status: Pulse Rate WNL, Blood Pressure Stable - GASTROINTESTINAL GI Status: No Symptoms - POST OP HYDRATION Hydration Status: Adequate & Stable
--- NOTE | 2018-09-12 11:29 | PCM.OPNOTE ---
- General Post-Op/Procedure Note Date of Surgery/Procedure: 09/12/18 Operative Procedure(s): Primary lower uterine segment transverse section through Pfannenstiel skin incision. Findings: Baby was found in vertex presentation. Amniotic fluid was clear. Placenta was fundal. Cervix was dilated 2+ centimeters which is adequate to allow for egress of blood. The left fallopian tube had 2 small paratubal cysts present less than 5 mm in size. Ovaries bilaterally were functional in appearance. Pre Op Diagnosis: 1. 38-1/7 week intrauterine . 2. Transient hypertension in . 3. Suspected macrosomia Post-Op Diagnosis: Same with delivery of an 8 lbs. 15 oz. female with Apgars of 8 and 9 at approximately 1040 hrs. on 09/12/2018. Anesthesia Technique: Spinal Other Anesthesia Type: Marcaine 0.5%20 mL totallocal Primary Surgeon: Frederick Campbell Secondary Surgeon: Rishabh Cummins Anesthesia Provider: Renetta Rizvi Reason Buffing Wheel Former Automatic Was Necessary: Assistance, retraction, patient's safety, quality of care. Fluid Replacement, Intraop: 1,800 Output, Urine Amount: 50 EBL in mLs: 400 Drain/Tube Comments:: Indwelling bladder catheter Complications: None Condition: Good Free Text/Narrative:: Surgery duration: One to 7 minutes Surgery duration: Procedure: The patient is appropriately consented. Patient was transferred to the room and placed in a sitting position. Spinal anesthesia was administered. After confirmation of adequate anesthesia patient was placed in a supine position with a wedge under her right side to facilitate left lateral positioning. TRAXI panniculus retraction drape was then applied. The patient was prepped and draped in usual fashion and the Salguero catheter was placed . The anesthetic was checked and found to be adequate. 20 mL of Marcaine 0.5% was injected locally in the Pfannenstiel incision site. The Pfannenstiel skin incision was then made and carried down through skin, subcutaneous and fascial layers. The fascia was then undermined superiorly and inferiorly to allow for adequate operating room. The recti muscles midline and preperitoneal fat was bluntly dissected. Peritoneal cavity was entered longitudinally. The vesicouterine peritoneum was then incised transversely and bladder flap was developed. Myometrium was incised transversely to the level of the amniotic sac. This incision was extended bilaterally in a blunt fashion. The amniotic sac was then ruptured resulting in clear amniotic fluid. A hand was placed in the low uterine segment and the baby's head was brought forth through the incision. The baby was completely delivered using fundal pressure in a routine fashion. The nose and mouth were bulb suctioned. Baby's cord was clamped x2 and cut and baby was handed off to attending rate reviewer Dr. Blanchard . Placenta was expressed after cord blood was obtained. Uterus was then exteriorized to allow for easier closure. The cervix was assessed and found to be dilated adequately to allow egress of blood. The uterus was closed in 2 layers. The first layer a running locked suture of 0 Monocryl, the second layer a running locked vertical mattress suture of 0 Monocryl. [id number] suture was placed at mid incision to control 1 bleeder. Hemostasis confirmed at this time. Sponge, instrument needle countwerect. The uterus was returned to the abdominal cavity and lateral gutters were cleared of blood. Once again sponge needle counts are correct. The anterior abdominal wall was closed with a #1 PDS suture from angle to angle. The subcutaneous area was found to be free of any bleeders. interrupted sutures of 3-0 Monocryl were used to reapproximate the subcutaneous layer.Skin was closed with a running subcuticular stitch of 3-0 Monocryl in a vertical mattress suture fashion using a Kayden needle. Prineo mesh/glue was then applied to further approximate the incision. It should be noted that patient received 3 g of Ancef preoperatively for infection prophylaxis and had Pitocin infused after delivery of the placenta to facilitate uterine contraction. She also had sequential compression stockings in place for DVT prophylaxis. Patient was discharged from the operating room in satisfactory condition.
[2018-09-12] MEDS ORDERED: Docusate Sodium 100 MG Cap PO PRN (12:00)
[2018-09-12] MEDS ORDERED: Naloxone 0.4 MG/ML SDV IVPUSH PRN (12:00)
[2018-09-12] MEDS ORDERED: Dextrose 5%-Lactated Ringers 1,000 ML IV SCH (12:00)
[2018-09-12] MEDS ORDERED: Lanolin 100% Cream 7 GM Tube TOP PRN (12:00)
[2018-09-12] MEDS ORDERED: Ondansetron 4 MG/2 ML SDV IV PRN (12:00)
[2018-09-12] MEDS ORDERED: ePHEDrine 50 MG/ML SDV IVPUSH PRN (12:00)
[2018-09-12] MEDS: Simethicone 80 MG Tab.Chew PO SCH ×4 (13:52→22:46)
[2018-09-12] MEDS: diphenhydrAMINE 50 MG/ML SDV IVPUSH PRN (18:27)
[2018-09-12] MEDS: Ibuprofen 800 MG Tab PO SCH (18:27)
[2018-09-12] MEDS ORDERED: Sodium Chloride 0.9% 1,000 ML IV ONE (21:31)
[2018-09-12] MEDS ORDERED: Lactated Ringers 1,000 ML IV SCH (21:45)
[2018-09-13] MEDS: Simethicone 80 MG Tab.Chew PO SCH ×5 (00:47→23:25)
[2018-09-13] MEDS: Acetaminophen/oxyCODONE 325-5 MG Tab PO PRN ×4 (01:46→23:23)
[2018-09-13] MEDS: diphenhydrAMINE 50 MG/ML SDV IVPUSH PRN (01:47)
[2018-09-13] MEDS: Ibuprofen 800 MG Tab PO SCH ×3 (05:02→18:25)
--- NOTE | 2018-09-13 08:05 | PCM48HPAN ---
Post Anesthesia Note - EVALUATION WITHIN 48HRS OF ANESTHETIC Vital Signs in Normal Range: Yes Patient Participated in Evaluation: Yes Respiratory Function Stable: Yes Airway Patent: Yes Cardiovascular Function Stable: Yes Hydration Status Stable: Yes Pain Control Satisfactory: Yes Nausea and Vomiting Control Satisfactory: Yes Mental Status Recovered: Yes Pulse Rate: 81 Resp Rate: 14 Temperature: 98.2 F Blood Pressure: 149/87
[2018-09-13] MEDS ORDERED: Prenatal Multivitamin with Calcium/Folic Acid/Iron Tab PO SCH (09:00)
[2018-09-14] MEDS: Ibuprofen 800 MG Tab PO SCH (03:47)
[2018-09-14 04:32] VITALS: BP 150/87
--- NOTE | 2018-09-14 06:17 | PCM.HP ---
H&P History of Present Illness - General Date of Service: 09/14/18 Admit Problem/Dx: Patient Status Order with Admit Dx/Problem 09/12/18 03:55 Patient Status [ADT] Routine 09/12/18 06:08 Patient Status [ADT] Routine Admission Diagnosis/Problem Admission Diagnosis/Problem 09/12/18 09:48 38-1/7 week intrauterine , elevated blood pressures, history of macrosomic baby Source of Information: Patient History Limitations: Reports: No Limitations Incisional Pain Score (Numeric/FACES): 5 - Related Data Allergies/Adverse Reactions: Allergies Allergy/AdvReac Type Severity Reaction Status Date / Time phenobarbital Allergy Unknown Rash Verified 04/07/18 21:46 latex Allergy Rash Verified 04/07/18 21:46 nitrofurantoin Allergy Rash Verified 04/07/18 21:46 [From Macrobid] nitrofurantoin Allergy Rash Verified 04/07/18 21:46 macrocrystalline [From Macrobid] Home Medications: Home Meds PNV95/Ferrous Fumarate/FA [ Tablet] 1 each PO BID 08/02/18 [History] Ferrous Sulfate [Iron] 325 mg PO DAILY 09/12/18 [History] Past Medical History - Past Health History Medical/Surgical History: Denies Medical/Surgical History Cardiovascular History: Reports: Other (See Below) Other Cardiovascular History: Induced HTN Gastrointestinal History: Reports: GERD Genitourinary History: Reports: STD BLINDMAKER History: Reports: Endometriosis, , Spontaneous , Other ( See Below) Other OB/BYN History: Ovarian cyst. 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 She was evaluated on 04/20 with colposcopy. White epithelium present at the 6 o'clock position, which appears mild in nature. Patient will be evaluated with another Pap and colposcopy once post-. Neurological History: Reports: Migraines, Other (See Below) Psychiatric History: Reports: Anxiety, Depression, PTSD Endocrine/Metabolic History: Reports: Obesity/BMI 30+ Hematologic History: Reports: Anemia - Infectious Disease History Infectious Disease History: Reports: Human Papilloma Virus (HPV) - Past Surgical History HEENT Surgical History: Reports: Myringotomy w Tube(s) Female Surgical History: Reports: D&C Social & Family History - Family History Family Medical History: Noncontributory - Tobacco Use Smoking Status *Q: Current Some Day Smoker Years of Tobacco use: 14 Packs/Tins Daily: 0.5 Used Tobacco, but Quit: No Second Hand Smoke Exposure: Yes - Caffeine Use Caffeine Use: Reports: Coffee, Soda - Alcohol Use Days Per Week of Alcohol Use: 0 Number of Drinks Per Day: 0 Total Drinks Per Week: 0 - Recreational Drug Use Recreational Drug Use: No - Living Situation & Occupation Living situation: Reports: Single, with Family, Other Occupation: Employed H&P Review of Systems - Review of Systems: Review Of Systems: See Below Exam - Exam Exam: See Below - Vital Signs Vital Signs: Last Vital Signs Temp 36.4 C 09/14/18 03:00 Pulse 78 09/14/18 03:00 Resp 18 09/14/18 03:00 BP 150/87 H 09/14/18 03:00 Pulse Ox 97 09/14/18 03:00 Weight: 124.738 kg - Patient Data Lab Results Last 24 hrs: Laboratory Results - last 24 hr 09/13/18 Range/Units 05:54 WBC 10.16 H (3.98-10.04) K/mm3 RBC 3.50 L (3.98-5.22) M/mm3 Hgb 10.1 L D (11.2-15.7) gm/L Hct 31.2 L (34.1-44.9) % MCV 89.1 (79.4-94.8) fl MCH 28.9 (25.6-32.2) pg MCHC 32.4 (32.2-35.5) g/dl RDW Std Deviation 61.4 H (36.4-46.3) fL Plt Count 248 (182-369) K/mm3 MPV 10.3 (9.4-12.3) fl Neut % (Auto) 66.9 (34.0-71.1) % Lymph % (Auto) 23.8 (19.3-51.7) % [place] % (Auto) 7.9 (4.7-12.5) % Eos % (Auto) 0.9 (0.7-5.8) Baso % (Auto) 0.1 (0.1-1.2) % Neut # (Auto) 6.80 H (1.56-6.13) K/mm3 Lymph # (Auto) 2.42 (1.18-3.74) K/mm3 [place] # (Auto) 0.80 H (0.24-0.36) K/mm3 Eos # (Auto) 0.09 (0.04-0.36) K/mm3 Baso # (Auto) 0.01 (0.01-0.08) K/mm3 Result Diagrams: 09/13/18 05:54 09/12/18 04:30 Problem List Initiated/Reviewed/Updated: Yes Orders Last 24hrs: Active Orders 24 hr Category Date Time Status Communication Order [RC] ASDIRECTED Care 09/13/18 10:27 Active Vit with Ca/FA/Iron [ Plus Iron] Med 09/13/18 09:00 Active 1 each PO DAILY Medication Orders Diphenhydramine HCl (Benadryl) 25 mg IVPUSH Q6H PRN PRN Reason: pruritis Diphenhydramine HCl (Benadryl) 25 mg IVPUSH Q6H PRN PRN Reason: Itching or Nausea Last Admin: 09/13/18 01:47 Dose: 25 mg Admin: 09/12/18 18:27 Dose: 25 mg Docusate Sodium (Colace) 100 mg PO Q12H PRN PRN Reason: Constipation Last Admin: 09/13/18 15:20 Dose: 100 mg Emollient Ointment (Lansinoh Hpa) 0 gm TOP ASDIRECTED PRN PRN Reason: Sore Nipples Ephedrine Sulfate (Ephedrine Sulfate) 5 mg IVPUSH SEECOMMENT PRN PRN Reason: Other Ibuprofen (Motrin) 800 mg PO Q8H [facility] Last Admin: 09/14/18 03:47 Dose: 800 mg Admin: 09/13/18 18:25 Dose: 800 mg Admin: 09/13/18 11:16 Dose: 800 mg Admin: 09/13/18 05:02 Dose: 800 mg Admin: 09/12/18 18:27 Dose: 800 mg Naloxone HCl (Narcan) 0.1 mg IVPUSH SEECOMMENT PRN PRN Reason: Respiratory Depression Ondansetron HCl (Zofran) 4 mg IVPUSH ONETIME PRN PRN Reason: Nausea/Vomiting Ondansetron HCl (Zofran) 4 mg IV Q4H PRN PRN Reason: Nausea/Vomiting Oxycodone/Acetaminophen (Percocet 325-5 Mg) 2 tab PO Q4H PRN PRN Reason: Pain (moderate 4-6) Last Admin: 09/13/18 23:23 Dose: 2 tab Admin: 09/13/18 18:22 Dose: 2 tab Admin: 09/13/18 13:16 Dose: 1 tab Admin: 09/13/18 01:46 Dose: 1 tab Prenat Multivit/Feed Crusher Operator/Iron/Folic Ac ( Plus Iron) 1 each PO DAILY [facility] Last Admin: 09/13/18 09:17 Dose: 1 each Simethicone (Simethicone) 160 mg PO QID [facility] Last Admin: 09/13/18 23:25 Dose: 160 mg Admin: 09/13/18 18:18 Dose: 160 mg Admin: 09/13/18 13:17 Dose: 160 mg Admin: 09/13/18 09:16 Dose: 160 mg Admin: 09/13/18 00:47 Dose: 160 mg Admin: 09/12/18 22:46 Dose: Not Given Admin: 09/12/18 18:26 Dose: 160 mg Admin: 09/12/18 13:58 Dose: 160 mg Admin: 09/12/18 13:52 Dose: Not Given Assessment/Plan Comment:: 1.38-1/7 week intrauterine , elevated blood pressures with elevated uric acid and 1+ protein. Suspected gestational hypertension versus transient hypertension of 2. History of macrosomic baby per clinical exam and ultrasound evaluation with desire for primary section per patient. 3. Comorbidities include massive obesity 4. Patient plans to bottle feed 5. Plans to do spinal block for anesthesia. 6. Multiple allergies as listed Plan: 1. Primary lower uterine segment transverse section through Pfannenstiel skin incision under spinal block 2. Ancef for preoperative infection prophylaxis. 3. DVT prophylaxis with SCDs 4. Routine preoperative labs and orders 5. Contact Lens Fitter in attendance for delivery. 6. Rubella immune
--- NOTE | 2018-09-14 06:21 | PCM.DCSUM1 ---
Discharge Summary - Hospital Course Free Text/Narrative:: Trace 7-year-old 4 now [place] [id number] white female admitted for active rupture membranes which was proven negative. Hypertension in . Would be transient hypertension. Patient was scheduled previously for a primary section because of suspected macrosomia. She underwent primary section with this admission. Diagnosis: Stroke: No - Discharge Data Discharge Date: 09/14/18 Discharge Disposition: Home, Self-Care 01 Condition: Good - Patient Summary/Data Operative Procedure(s) Performed: Primary lower uterine segment transverse section through Pfannenstiel skin incision. - Patient Instructions Diet: Regular Diet as Tolerated Activity: As Tolerated (No intercourse or tampons until seen back. No driving a car or lifting greater than 15 pounds 1 week.) Driving: Do Not Drive Showering/Bathing: May Shower Wound/Incision Care: Keep Operative Site/Wound Site Clean and Dry Notify Provider of: Fever, Increased Pain, Swelling and Redness, Drainage, Nausea and/or Vomiting - Discharge Plan Home Medications: Home Meds PNV95/Ferrous Fumarate/FA [ Tablet] 1 each PO BID 08/02/18 [History] Ferrous Sulfate [Iron] 325 mg PO DAILY 09/12/18 [History] Acetaminophen/oxyCODONE [Percocet 325-5 MG] 2 tab PO Q4H PRN tablet 09/14/18 [ Rx] Ibuprofen [Motrin] 800 mg PO Q8H tablet 09/14/18 [Rx] Patient Handouts: Steps to Quit Smoking Referrals: Frederick Campbell MD [Primary Care Provider] - (Return to clinicDr. Campbell2 weeks.) - Discharge Summary/Plan Comment DC Time >30 min.: No Discharge Summary/Plan Comment: Discharge instructions: 1. Discharge home 2. Diet, activity and follow-up discussed with patient. Regular diet recommended 3. Precautions given concern increased pain, bleeding, temperature, signs/ symptoms of DVT/PE. 4. Medications per home medication was printed, discussed with and given to the patient. 5. Return to clinic-Dr. Campbell[facility] in 2 weeks. Diagnosis: Term -delivered Condition: Good - Patient Data Vitals - Most Recent: Last Vital Signs Temp 36.4 C 09/14/18 03:00 Pulse 78 09/14/18 03:00 Resp 18 09/14/18 03:00 BP 150/87 H 09/14/18 03:00 Pulse Ox 97 09/14/18 03:00 Weight - Most Recent: 124.738 kg I&O - Last 24 hours: Intake & Output 09/13/18 09/13/18 09/14/18 14:59 22:59 06:59 Intake Total 180 Output Total 350 Balance -170 Lab Results - Last 24 hrs: Laboratory Results - last 24 hr 09/13/18 Range/Units 05:54 WBC 10.16 H (3.98-10.04) K/mm3 RBC 3.50 L (3.98-5.22) M/mm3 Hgb 10.1 L D (11.2-15.7) gm/L Hct 31.2 L (34.1-44.9) % MCV 89.1 (79.4-94.8) fl MCH 28.9 (25.6-32.2) pg MCHC 32.4 (32.2-35.5) g/dl RDW Std Deviation 61.4 H (36.4-46.3) fL Plt Count 248 (182-369) K/mm3 MPV 10.3 (9.4-12.3) fl Neut % (Auto) 66.9 (34.0-71.1) % Lymph % (Auto) 23.8 (19.3-51.7) % [place] % (Auto) 7.9 (4.7-12.5) % Eos % (Auto) 0.9 (0.7-5.8) Baso % (Auto) 0.1 (0.1-1.2) % Neut # (Auto) 6.80 H (1.56-6.13) K/mm3 Lymph # (Auto) 2.42 (1.18-3.74) K/mm3 [place] # (Auto) 0.80 H (0.24-0.36) K/mm3 Eos # (Auto) 0.09 (0.04-0.36) K/mm3 Baso # (Auto) 0.01 (0.01-0.08) K/mm3 Med Orders - Current: Current Medications Diphenhydramine HCl (Benadryl) 25 mg IVPUSH Q6H PRN PRN Reason: pruritis Diphenhydramine HCl (Benadryl) 25 mg IVPUSH Q6H PRN PRN Reason: Itching or Nausea Last Admin: 09/13/18 01:47 Dose: 25 mg Docusate Sodium (Colace) 100 mg PO Q12H PRN PRN Reason: Constipation Last Admin: 09/13/18 15:20 Dose: 100 mg Emollient Ointment (Lansinoh Hpa) 0 gm TOP ASDIRECTED PRN PRN Reason: Sore Nipples Ephedrine Sulfate (Ephedrine Sulfate) 5 mg IVPUSH SEECOMMENT PRN PRN Reason: Other Ibuprofen (Motrin) 800 mg PO Q8H [facility] Last Admin: 09/14/18 03:47 Dose: 800 mg Naloxone HCl (Narcan) 0.1 mg IVPUSH SEECOMMENT PRN PRN Reason: Respiratory Depression Ondansetron HCl (Zofran) 4 mg IVPUSH ONETIME PRN PRN Reason: Nausea/Vomiting Ondansetron HCl (Zofran) 4 mg IV Q4H PRN PRN Reason: Nausea/Vomiting Oxycodone/Acetaminophen (Percocet 325-5 Mg) 2 tab PO Q4H PRN PRN Reason: Pain (moderate 4-6) Last Admin: 09/13/18 23:23 Dose: 2 tab Prenat Multivit/Ivor/Iron/Folic Ac ( Plus Iron) 1 each PO DAILY [facility] Last Admin: 09/13/18 09:17 Dose: 1 each Simethicone (Simethicone) 160 mg PO QID [facility] Last Admin: 09/13/18 23:25 Dose: 160 mg Discontinued Medications Bupivacaine HCl (Marcaine 0.5%) Confirm Administered Dose 30 ml .ROUTE .STK-MED ONE Stop: 09/12/18 07:45 Last Admin: 09/12/18 10:38 Dose: 20 ml Cefazolin Sodium (Ancef) Confirm Administered Dose 2 gm .ROUTE .STK-MED ONE Stop: 09/12/18 10:26 Cefazolin Sodium (Ancef) Confirm Administered Dose 1 gm .ROUTE .STK-MED ONE Stop: 09/12/18 10:36 Citric Acid/Sodium Citrate (Bicitra Solution) 30 ml PO ONETIME ONE Stop: 09/12/18 06:09 Last Admin: 09/12/18 09:17 Dose: 30 ml Citric Acid/Sodium Citrate (Bicitra Solution) Confirm Administered Dose 30 ml .ROUTE .STK-MED ONE Stop: 09/12/18 09:15 Last Admin: 09/12/18 10:07 Dose: Not Given Diphenhydramine HCl (Benadryl) Confirm Administered Dose 50 mg .ROUTE .STK-MED ONE Stop: 09/12/18 10:58 Cefazolin Sodium/Dextrose 1 gm (/ Premix) 50 mls @ 100 mls/hr IV ONETIME ONE Stop: 09/12/18 06:37 Last Admin: 09/12/18 10:06 Dose: Not Given Cefazolin Sodium/Dextrose 2 gm (/ Premix) 50 mls @ 100 mls/hr IV ONETIME ONE Stop: 09/12/18 06:37 Last Admin: 09/12/18 10:07 Dose: Not Given Lactated Ringer's (Ringers, Lactated) 1,000 mls @ 125 mls/hr IV ASDIRECTED JAVIER Last Admin: 09/12/18 09:18 Dose: 500 mls/hr Oxytocin/Lactated Ringer's (Pitocin In Lr 10 Units/1,000 Ml) 10 unit in 1,000 mls @ 100 mls/hr IV ASDIRECTED JAVIER; Protocol Dextrose/Lactated Ringer's (Dextrose 5%-Lactated Ringers) 1,000 mls @ 125 mls/ hr IV ASDIRECTED JAVIER Stop: 09/12/18 19:59 Last Admin: 09/12/18 13:59 Dose: 125 mls/hr Lactated Ringer's (Ringers, Lactated) 1,000 mls @ 200 mls/hr IV ASDIRECTED [facility]AVIER Last Admin: 09/13/18 00:50 Dose: 200 mls/hr Sodium Chloride (Normal Saline) 1,000 mls @ 999 mls/hr IV ONETIME ONE Stop: 09/12/18 22:31 Last Admin: 09/12/18 22:18 Dose: 999 mls/hr Ketorolac Tromethamine (Toradol) Confirm Administered Dose 30 mg .ROUTE .STK- MED ONE Stop: 09/12/18 10:04 Metoclopramide HCl (Reglan) 10 mg IVPUSH ONETIME ONE Stop: 09/12/18 06:09 Last Admin: 09/12/18 09:16 Dose: 10 mg Metoclopramide HCl (Reglan) Confirm Administered Dose 10 mg .ROUTE .STK-MED ONE Stop: 09/12/18 09:14 Last Admin: 09/12/18 10:06 Dose: Not Given Morphine Sulfate (Duramorph Pf) Confirm Administered Dose 1 mg .ROUTE .STK-MED ONE Stop: 09/12/18 10:04 Nalbuphine HCl (Nubain) 10 mg IVPUSH Q2H PRN PRN Reason: pain Ondansetron HCl (Zofran) Confirm Administered Dose 4 mg .ROUTE .STK-MED ONE Stop: 09/12/18 10:04 Oxytocin (Pitocin) Confirm Administered Dose 20 unit .ROUTE .STK-MED ONE Stop: 09/12/18 10:04 Sodium Chloride (Saline Flush) 10 ml FLUSH ASDIRECTED PRN PRN Reason: Keep Vein Open
== END 2018-09-14 08:30 | disposition home or self-care (01) | DRG 788 ==
LOC: JD.OBCHECK 03:13 → JD.OB 03:13 → JD.OBCHECK 06:14 → OBSVTOIN 10:41 → JD.OB 10:42
PROVIDERS: ADMIT Obstetrics & Gynecology; ATTEND Obstetrics & Gynecology
PROC: 10D00Z1 Extraction of Products of Conception, Low, Open Approach (ICD-10-PCS; principal; 2018-09-12)
DX: O13.4 Gestational [pregnancy-induced] hypertension without significant proteinuria, complicating childbirth (principal); Z3A.38 38 weeks gestation of pregnancy; Z37.0 Single live birth; O36.63X0 Maternal care for excessive fetal growth, third trimester, not applicable or unspecified; O99.333 Smoking (tobacco) complicating pregnancy, third trimester; F17.210 Nicotine dependence, cigarettes, uncomplicated; Z88.8 Allergy status to other drugs, medicaments and biological substances
CPT/HCPCS: 01961; 36415; 59025; 81003; 82565; 83615; 84112; 84450; 84460; 84520; 84550; 85025; 86592; 86850; 86900; 86901; 94762; A9270-GY; J0690; J1200; J1885; J2274; J2405; J2590; J2765; J3490; J7040; J7042; J7120

== ENCOUNTER 2018-09-16 15:12 | Emergency (ER) | payer MEDICAID ==
[2018-09-16 15:21] VITALS: BP 161/96
[2018-09-16] MEDS ORDERED: Sodium Chloride 0.9% 1,000 ML IV SCH (16:00)
--- NOTE | 2018-09-16 16:03 | EDM.PDOC ---
ED HPI GENERAL MEDICAL PROBLEM - General Chief Complaint: Respiratory Problem Stated Complaint: SOB - POST C SECTION Time Seen by Provider: 09/16/18 15:20 Source of Information: Reports: Patient, RN Notes Reviewed History Limitations: Reports: No Limitations - History of Present Illness INITIAL COMMENTS - FREE TEXT/NARRATIVE: The patient states that she has had intermittent episodes of shortness of breath since yesterday. It only lasts for about 1 minute, and is only present after she wakes up from either sleep or a nap. She had some nausea and vomiting yesterday, then some watery diarrhea today. She has had a phlegmy cough since yesterday. No recent fever. She reports having some central chest pressure today , along with shortness of breath. No palpitations. She reports feeling anxious. She took 0.5 mg oral lorazepam, along with 50 mg of sertraline, which she states helped with her anxiety, but not her dyspnea. The patient is status post an unplanned , due to preeclampsia, on 09/12/2018, giving to a healthy girl. She was up and walking within 12 hours, and discharged home on , 09/14/2018. The patient has a history of depression, PTSD, and panic disorder. The patient states that she takes lorazepam only on an as-needed basis, and that the last time she took it was more than a year ago. She stopped taking her sertraline, however, about one month into her . The dose that she took today was the first dose in approximately 8 months (she is unfamiliar with it's pharmacokinetics). The patient states that she has not had similar symptoms in the past, and that they are different than her prior panic attacks. The patient's PCP is Pepper Salazar. Her student teacher is Dr. Frederick Campbell. Chest Pain Score (Numeric/FACES): 5 - Related Data Allergies Allergy/AdvReac Type Severity Reaction Status Date / Time phenobarbital Allergy Unknown Rash Verified 09/16/18 15:16 latex Allergy Rash Verified 09/16/18 15:16 nitrofurantoin Allergy Rash Verified 09/16/18 15:16 [From Macrobid] nitrofurantoin Allergy Rash Verified 09/16/18 15:16 macrocrystalline [From Macrobid] Home Meds: Home Meds PNV95/Ferrous Fumarate/FA [ Tablet] 1 each PO BID 08/02/18 [History] Ferrous Sulfate [Iron] 325 mg PO DAILY 09/12/18 [History] Acetaminophen/oxyCODONE [Percocet 325-5 MG] 2 tab PO Q4H PRN tablet 09/14/18 [ Rx] Ibuprofen [Motrin] 800 mg PO Q8H tablet 09/14/18 [Rx] Past Medical History Respiratory History: Reports: Sleep Apnea (noncompliant with CPAP) Genitourinary History: Reports: Urinary Incontinence (stress incontinence) SCAN COORDINATOR History: Reports: Endometriosis, , Spontaneous , Other ( See Below) (Preeclampsia x 2. 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) - Past Surgical History HEENT Surgical History: Reports: Myringotomy w Tube(s) (bilateral) Female Surgical History: Reports: Section (09/12/2018) Social & Family History - Family History Family Medical History: Noncontributory - Tobacco Use Smoking Status *Q: Current Every Day Smoker Years of Tobacco use: 14 Packs/Tins Daily: 0.4 Packs/Tins Daily Comment: Down from 1 ppd - Caffeine Use Caffeine Use: Reports: Soda - Alcohol Use Alcohol Use History: Yes Alcohol Use Frequency: Rarely - Recreational Drug Use Recreational Drug Use: No - Living Situation & Occupation Living situation: Reports: , with Spouse, with Family (3 kids), 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 ED EXAM, GENERAL - Physical Exam Exam: See Below Exam Limited By: No Limitations General Appearance: Alert, WD/WN, No Apparent Distress Eye Exam: Bilateral Eye: EOMI, Normal Inspection Ears: Normal External Exam, Hearing Grossly Normal Nose: Normal Inspection Throat/Mouth: Normal Inspection, Normal Lips, Normal Voice, No Airway Compromise Head: Atraumatic, Normocephalic Neck: Normal Inspection, Full Range of Motion Respiratory/Chest: No Respiratory Distress, Lungs Clear, Normal Breath Sounds, No Accessory Muscle Use. No: Crackles, Rhonchi, Wheezing Cardiovascular: Normal Peripheral Pulses, Regular Rate, Rhythm, No Gallop, No JVD, No Murmur, No Rub Peripheral Pulses: 4+: Radial (L), Radial (R) GI/Abdominal: Normal Bowel Sounds, Soft, Non-Tender, No Organomegaly, No Distention, No Abnormal Bruit, No Mass, Other (Obese) (Female) Exam: Deferred Rectal (Female) Exam: Deferred Back Exam: Normal Inspection, Full Range of Motion, NT Extremities: Normal Inspection, Normal Range of Motion, Normal Capillary Refill , Other (1-2+ bilateral pretibial edema) Neurological: Alert, Oriented, Normal Cognition, No Motor/Sensory Deficits Psychiatric: Normal Affect Skin Exam: Warm, Dry, Intact, Normal Color, No Rash EKG INTERPRETATION EKG Date: 09/16/18 Time: 16:23 Rhythm: NSR Rate (Beats/Min): 67 Childs: Normal P-Wave: Present QRS: Normal ST-T: Normal QT: Normal Comparison: NA - No Prior EKG Course - Vital Signs Last Recorded V/S: Last Vital Signs Temp 36.6 C 09/16/18 15:19 Pulse 76 09/16/18 15:19 Resp 12 09/16/18 15:19 BP 161/96 H 09/16/18 15:19 Pulse Ox 98 09/16/18 15:19 - Orders/Labs/Meds Labs: Laboratory Tests 09/16/18 09/16/18 09/16/18 Range/Units 16:00 16:00 16:00 WBC 9.08 (3.98-10.04) K/mm3 RBC 3.81 L (3.98-5.22) M/mm3 Hgb 10.8 L (11.2-15.7) gm/L Hct 33.9 L (34.1-44.9) % MCV 89.0 (79.4-94.8) fl MCH 28.3 (25.6-32.2) pg MCHC 31.9 L (32.2-35.5) g/dl RDW Std Deviation 62.1 H (36.4-46.3) fL Plt Count 358 (182-369) K/mm3 MPV 9.6 (9.4-12.3) fl Neutrophils % (Manual) 66 H (40-60) % Band Neutrophils % 0 (0-10) % Lymphocytes % (Manual) 26 (20-40) % Atypical Lymphs % 0 % Monocytes % (Manual) 6 (2-10) % Eosinophils % (Manual) 2 (0.7-5.8) % Basophils % (Manual) 0 L (0.1-1.2) Platelet Estimate Adequate Plt Morphology Comment Normal Anisocytosis 1+ sligh RBC Morph Comment Not Reportable PT 9.3 L (9.5-12.1) SECONDS INR < 0.93 APTT 23 L (24-31) SECONDS Sodium 141 (136-145) mEq/L Potassium 3.9 (3.5-5.1) mEq/L Chloride 108 H (98-107) mEq/L Carbon Dioxide 22 (21-32) mEq/L Anion Gap 14.9 (5-15) BUN 15 (7-18) mg/dL Creatinine 0.7 (0.55-1.02) mg/dL Est Cr Clr Drug Dosing 104.24 mL/min Estimated GFR (MDRD) > 60 (>60) mL/min BUN/Creatinine Ratio 21.4 H (14-18) Glucose 115 H (74-106) mg/dL Calcium 8.6 (8.5-10.1) mg/dL Total Bilirubin 0.3 (0.2-1.0) mg/dL AST 84 H (15-37) U/L ALT 76 H (14-59) U/L Alkaline Phosphatase 126 H (46-116) U/L Troponin I < 0.017 (0.00-0.056) ng/mL Total Protein 6.0 L (6.4-8.2) g/dl Albumin 2.4 L (3.4-5.0) g/dl Globulin 3.6 gm/dL Albumin/Globulin Ratio 0.7 L (1-2) Meds: Medications Discontinued Medications Generic Name Dose Route Start Last Admin Trade Name Freq PRN Reason Stop Dose Admin Sodium Chloride 1,000 mls @ 100 mls/hr 09/16/18 16:00 09/16/18 16:08 Normal Saline IV 100 mls/hr ASDIRECTED JAVIER Administration Sodium Chloride 100 mls @ 75 mls/hr 09/16/18 16:30 09/16/18 16:48 Normal Saline IV 75 mls/hr ASDIRECTED JAVIER Administration Iopamidol 200 ml 09/16/18 16:23 09/16/18 16:41 Isovue-370 (76%) IV 09/16/18 16:24 100 ml ONETIME ONE Administration Sodium Chloride 10 ml 09/16/18 16:23 09/16/18 16:41 Saline Flush FLUSH 10 ml ONETIME PRN Administration IV FLUSH - Re-Assessments/Exams Free Text/Narrative Re-Assessment/Exam: 09/16/18 15:58 The biggest concern is whether the patient has a pulmonary embolus secondary to her recent and . Because of her recent , her D- dimer will be elevated, therefore is of no diagnostic use. I therefore had to order a CT angiogram of the chest to rule out a PE. I have also ordered blood work and an ECG. The patient will receive IV fluid. If everything returns negative, then I think the most likely explanation for her shortness of breath is her untreated anxiety. 09/16/18 17:09 CT angiogram of the chest is read by Dr. Campos as: 1. No findings of pulmonary embolism. 2. Minimal bilateral pleural effusions. 3. No additional abnormality is appreciated on CT study of the chest performed as a pulmonary angiogram protocol. 09/16/18 17:37 Test results discussed with the patient. Today's workup is entirely unremarkable. I explained to the patient that while I cannot prove that her symptoms are related to anxiety, she has a history of anxiety disorder, currently untreated, and no physiologic explanation was found for her symptoms, therefore it is most likely that her symptoms are due to anxiety. I recommended to the patient that she restart her Zoloft, with the knowledge that it typically takes 3-4 weeks, sometimes longer, before it starts to take effect. I advised her to take Ativan only sparingly, as she has been. Departure - Departure Time of Disposition: 17:38 Disposition: Home, Self-Care 01 Condition: Good Clinical Impression: Anxiety, Shortness of breath - Discharge Information *PRESCRIPTION DRUG MONITORING PROGRAM REVIEWED*: Not Applicable *COPY OF PRESCRIPTION DRUG MONITORING REPORT IN PATIENT REJI: Not Applicable Referrals: Pepper Salazar MD [Primary Care Provider] - Frederick Campbell MD [Physician] - Forms: ED Department Discharge Additional Instructions: You were seen in the emergency room for intermittent shortness of breath and chest pressure, along with nausea, vomiting, and watery diarrhea yesterday. Workup in the ER included blood work, a CT angiogram of your chest, and an ECG. Your entire workup was unremarkable. No physiologic reason was found for your symptoms. You do not have a blood clot in your lungs. You have not suffered a heart attack. You are not significantly anemic. Based on your history, physical exam, and ER tests, your symptoms are most likely due to untreated anxiety. As discussed, we recommend that you restart your sertraline (Zoloft), bearing in mind that it may take 3-4 weeks before you start having symptomatic relief. As discussed, take lorazepam (Ativan) only sparingly, as it is addictive. Follow-up with your PCP, Pepper Salazar, as needed. If any other problems, please do not hesitate to return to the ER.
[2018-09-16] MEDS ORDERED: Sodium Chloride 0.9% 10 ML Syringe FLUSH PRN (16:23)
[2018-09-16] MEDS ORDERED: Iopamidol 755 Mg/ML 200 ML Bottle IV ONE (16:23)
[2018-09-16] MEDS ORDERED: Sodium Chloride 0.9% 100 ML IV SCH (16:30)
--- NOTE | 2018-09-16 17:05 | CT ---
CT chest Technique: Multiple axial sections were obtained from above the lung apices inferiorly through the lung bases. Intravenous contrast was utilized. Study has been performed as a pulmonary angiogram protocol. Findings: Pulmonary arteries are moderately well-opacified. No filling defects are seen to indicate pulmonary embolism. Mediastinum and hilar regions show no adenopathy or mass. Small portion visualized upper abdominal structures are also within normal limits. Very minimal bilateral pleural effusions are seen. Lungs otherwise are clear. No acute parenchymal densities are seen. Bone window settings were reviewed which appear within normal limits for the patient's age. Impression: 1. No findings of pulmonary embolism. 2. Minimal bilateral pleural effusions. 3. No additional abnormality is appreciated on CT study of the chest performed as a pulmonary angiogram protocol. Diagnostic code #3
== END 2018-09-16 18:05 | disposition home or self-care (01) ==
LOC: JD.ED 15:12
DX: R06.02 Shortness of breath (principal); F41.9 Anxiety disorder, unspecified; F17.210 Nicotine dependence, cigarettes, uncomplicated; Z91.040 Latex allergy status; Z88.8 Allergy status to other drugs, medicaments and biological substances; E66.9 Obesity, unspecified
CPT/HCPCS: 36415; 71275; 80053; 84484; 85007; 85027; 85610; 85730; 93005; 96360; 96361; 99285; J7030; J7040; Q9967; 93010; 99284

== ENCOUNTER 2019-12-11 00:44 | Inpatient (IN) | payer MEDICAID ==
--- NOTE | 2019-12-10 20:26 | PCM.LDHP ---
L&D History of Present Illness - General Date of Service: 12/11/19 Admit Problem/Dx: Admission Diagnosis/Problem Admission Diagnosis/Problem section 12/10/19 20:10 Tosin is a 29-year-old 5 para 3013 white female is admitted on the a.m. of 12/11/2023 elective repeat section. Source of Information: Patient History Limitations: Reports: No Limitations - History of Present Illness Introduction:: Tosin is a 29-year-old 5 para 3013 white female is admitted on the a.m. of 12/11/2023 elective repeat section. The procedure, risks, benefits, alternatives of care including on onset of natural labor or induction of labor all discussed with patient. She appears to understand and wishes to proceed with a repeat section. 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 She had menarche at age [age]. Cycles somewhat irregular with her last menstrual period being somewhat uncertain but started on 03/06/2019. Her is dated by an early ultrasound done at 7-1/7 weeks on 04/30/2019. Patient has 3 living children born in 2013, 2015 and 2018, male, male and female respectively. Last child born via section for failure to progress secondary to macrosomia. Baby weighed 8 lbs. 15 oz. She's had 1 miscarriage on 04/21/2017 which was at 15-1/7 weeks gestational age. course patient was seen at 7 weeks and 1 day for for initial visit. She was seen on a regular basis during the course of . Her weight went from 233 to 262.2 pounds for approximately a 29 pound increase. Her vital signs remained stable throughout the course. Her fundal height was ahead of schedule but patient is morbidly obese and has a very large panniculus and therefore is found to have very difficult fundal height assessment. Most recent ultrasound done 11/03/2019 showed the baby at the 67th percentile growth. Patient is group B strep negative. She did have an abnormal Pap smear in 2015. She suffers from anxiety. She declined genetic testing with this . She declined her Tdap immunization. She also suffers from some depression. [employer] depression screening scores were 16 on 05/28/2019 and 19 on 07/02/2019. Patient reports a symptomaticHemorrhoid. She failed her 1 hour glucose and had a 30 glucose levels 115, 165, 153 and 90. She was advised to start on baby aspirin which she declined. She's been on citalopram during the course of and was asked to wean off in the last couple weeks of the . Laboratory testing in shows her blood to be a positive with negative amateur screening. First female in was 13.4 g/dL and platelets were 302,000. She is rubella immune. RPR is nonreactive. Urine culture was negative. Hepatitis B surface antigen and HIV assays were both negative. Gonorrhea tests were both negative. TSH done 06/25/2019 was normal at 1.753 microunits per liter. Second trimester labs showed hemoglobin 12.4 g/dL. Her platelets are 377,000. Her 1 hour GTT was abnormally high at 147. Her three-hour GTT was within normal limits. RPR done 09/17/2019 is nonreactive and her group B strep screen was negative. Patient's rubella titer shows immunity. Allergies: 1. Phenobarbital which causes a rash 2. Macrobid Switch causes hives and itching 3. Latex gloves-reaction unknown Medications: 1. Proctosol HC 2.5% external cream twice a day when necessary for hemorrhoids 2. Glipizide ER 2.5 mg orally every 24 hours 3. Citalopram hydrobromide 20 mg by mouth daily 4. The [id number] milligram oral capsules 5. Patient is on alprazolam intermittently early in the 6. vitamins 1 daily 7. Her sulfate 325 mg by mouth daily Past medical history: 1. Anxiety and depression 2. Hypertension in pregnancypatient was advised to start on baby aspirin prior to 16 weeks'declined 3. High-grade squamous intra-of the lesion remote [place] in 2016abnormal Pap smear and colposcopy last prepregnancy 4. Normal spontaneous vaginal delivery 2 Past surgical history: 1. 2018 for failure to progress secondary to macrosomia Family history: Patient has 2 sons who are alive and well except that her 4-year-old is undergoing testing for anger management issues. She has 3 sisters one brother alive and well. Mother is alive and well. Father's history is unknown but she thinks that he is alive and well. Grandmother with history of breast cancer. Maternal grandfather secondary to heart attack. Maternal grandmother is alive and well bolused thyroid deficiency on medication. Paternal grandfather and grandmother are unknown. There is family history of breast cancer in a maternal great grandmother. No family history of other cancers comprehensively dishes, anesthesia problems or bleeding dyscrasias. Maternal cousin did have some concerns but these are unknown to the patient. Social history: Patient is single. She works for [employer]. She is a high school graduate. She is not using any significant loss of alcohol, drugs or tobacco. Significant other's Jeromy Brice. They live in [place]. Review of systems: In general patient has no complaints. Baby has been active. Skin: Negative Lungs: No infectious symptoms or shortness of breath Cardiovascular: No chest pain or exercise intolerance Breasts: No lumps, changes in size, pain, dimpling, discharge or axillary or supraclavicular concerns. Changes associated with . GI: Negative : Changes associated with . Musculoskeletal: Negative Neurological: Negative In general the patient is well-developed, well-nourished, massively obese but pleasant female of stated age in no acute distress. Skin is warm dry without lesions. HEENT, neck and back within normal limits. Lungs are clear with good breath sounds in all lung vincent. Cardiovascular exam shows regular and rhythm without murmurs. Breast-exam done at first medical visit found them to be nontender without masses or discharge bilaterally with. There is no supraclavicular or axillary lymphadenopathy noted. Abdomen is protuberant with fundal height last evaluation at 47 cm. Genital-patient declined genital exam on last clinic evaluation. Extremities and neurological exam are grossly within normal limits. - Related Data Allergies/Adverse Reactions: Allergies Allergy/AdvReac Type Severity Reaction Status Date / Time latex Allergy Intermediate Rash Verified 12/10/19 16:07 nitrofurantoin Allergy Mild Rash Verified 12/10/19 16:07 [From Macrobid] nitrofurantoin Allergy Mild Rash Verified 12/10/19 16:07 macrocrystalline [From Macrobid] phenobarbital Allergy Unknown Rash Verified 11/13/19 19:08 Home Medications: Home Meds Pnv No.95/Ferrous Fum/Folic AC [ Tablet] 1 each PO BID 08/02/18 [History] Citalopram Hydrobromide [Celexa] 20 mg PO DAILY 11/13/19 [History] glipiZIDE [Glucotrol XL] 2.5 mg PO DAILY 11/13/19 [History] ALPRAZolam [Xanax] 0.25 mg PO DAILY PRN 12/10/19 [History] Hydrocortisone [Proctosol-HC] 1 dose TOP BID PRN 12/10/19 [History] Past Medical History - Past Health History Medical/Surgical History: Denies Medical/Surgical History Cardiovascular History: Reports: Other (See Below) Other Cardiovascular History: Induced HTN with last Respiratory History: Reports: Sleep Apnea Gastrointestinal History: Reports: GERD Genitourinary History: Reports: Urinary Incontinence 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 Neurological History: Reports: Migraines Psychiatric History: Reports: Depression, Panic Attack, PTSD Endocrine/Metabolic History: Reports: Diabetes, Gestational, Obesity/BMI 30+ Hematologic History: Reports: Anemia - Infectious Disease History Infectious Disease History: Reports: Human Papilloma Virus (HPV) - Past Surgical History HEENT Surgical History: Reports: Myringotomy w Tube(s) Female Surgical History: Reports: Section Social & Family History - Family History Family Medical History: Noncontributory - Tobacco Use Smoking Status *Q: Current Every Day Smoker Years of Tobacco use: 10 Packs/Tins Daily: 0.5 Used Tobacco, but Quit: No Second Hand Smoke Exposure: Yes - Caffeine Use Caffeine Use: Reports: Coffee, Soda - Recreational Drug Use Recreational Drug Use: No - Living Situation & Occupation Living situation: Reports: , with Spouse, with Family (3 kids), 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 39-2/7 week intrauterine , admitted for elective repeat section. 2. Risk factors for surgery include massive obesity with her weight presently at 262.2 pounds, history of previous section, latex allergy, history of anxiety and depression in , history of previous hypertension in with previous . 3. Patient plans to bottle feed. 4. Group B strep negative. 5. Patient declined her Tdap 6. Presently on citalopram during the latter part of for depression/anxiety Plan: 1. Repeat lower uterine segment transverse section through Pfannenstiel skin incision under spinal block. Procedure, risk, benefits, alternatives of care including attempt at vaginal delivery after section all discussed with patient. She appears to understand and wishes to proceed. Consent is signed. 2. Bottle feeding decision is supported 3. Preoperative DVT prophylaxis with SCDs, preoperative Ancef 23 grams IV preop per protocol 4. Preoperative labs consist of CBC, type and screen,covid testing 5. Monitor depression and anxiety closely after surgery.
[~2019-12-11 00:44] MED LIST: Sodium Chloride 0.9% 10 ML Syringe FLUSH PRN
[2019-12-11] MEDS ORDERED: Oxytocin/Lactated Ringers 20 UNIT/1,000 ML BAG IV SCH (06:00)
[2019-12-11] MEDS ORDERED: ceFAZolin 2 GM in Premix Bag 1 BAG IV ONE (06:00)
[2019-12-11] MEDS ORDERED: Lactated Ringers 1,000 ML IV SCH (06:00)
[2019-12-11] MEDS ORDERED: ceFAZolin 1 GM in Premix Bag 1 BAG IV ONE (06:00)
[2019-12-11] MEDS ORDERED: Lactated Ringers 1,000 ML ONE ×3 (06:13→08:35)
[2019-12-11] MEDS ORDERED: Citric Acid/Sodium Citrate Solution 30 ML Cup PO ONE (06:30)
[2019-12-11] MEDS ORDERED: Metoclopramide 10 MG/2 ML SDV IVPUSH ONE (06:30)
--- NOTE | 2019-12-11 06:49 | PCM.PREANE ---
Preanesthetic Assessment - Procedure Proposed Procedure: Repeat section - Anesthesia/Transfusion/Family Hx Anesthesia History: Prior Anesthesia Reaction Transfusion History: No Prior Transfusion(s) - Review of Systems General: No Symptoms Pulmonary: No Symptoms Cardiovascular: No Symptoms Gastrointestinal: No Symptoms Neurological: No Symptoms Other: Reports: None - Physical Assessment NPO Status Date: 12/10/19 NPO Status Time: 23:55 Vital Signs: 145/85, 77, 98% RA Height: 1.63 m Weight: 120.656 kg ASA Class: 3 (gest DM, morbid obesity) Mental Status: Alert & Oriented x3 Airway Class: Mallampati = 2 Dentition: Reports: Missing Tooth/Teeth, Caries (front upper incisors) Thyro-Mental Finger Breadths: 3 Mouth Opening Finger Breadths: 3 ROM/Head Extension: Full Lungs: Clear to Auscultation, Normal Respiratory Effort Cardiovascular: Regular Rate, Regular Rhythm - Lab Values: Laboratory Last Values WBC 9.82 K/mm3 (3.98-10.04) 12/11/19 05:55 RBC 4.54 M/mm3 (3.98-5.22) 12/11/19 05:55 Hgb 11.4 gm/dl (11.2-15.7) 12/11/19 05:55 Hct 36.8 % (34.1-44.9) 12/11/19 05:55 MCV 81.1 fl (79.4-94.8) D 12/11/19 05:55 MCH 25.1 pg (25.6-32.2) L 12/11/19 05:55 MCHC 31.0 g/dl (32.2-35.5) L 12/11/19 05:55 RDW Std Deviation 45.0 fL (36.4-46.3) 12/11/19 05:55 Plt Count 457 K/mm3 (182-369) H D 12/11/19 05:55 MPV 9.4 fl (9.4-12.3) 12/11/19 05:55 Neut % (Auto) 65.3 % (34.0-71.1) 12/11/19 05:55 Lymph % (Auto) 24.9 % (19.3-51.7) 12/11/19 05:55 [place] % (Auto) 6.9 % (4.7-12.5) 12/11/19 05:55 Eos % (Auto) 1.8 (0.7-5.8) 12/11/19 05:55 Baso % (Auto) 0.3 % (0.1-1.2) 12/11/19 05:55 Neut # (Auto) 6.40 K/mm3 (1.56-6.13) H 12/11/19 05:55 Lymph # (Auto) 2.45 K/mm3 (1.18-3.74) 12/11/19 05:55 [place] # (Auto) 0.68 K/mm3 (0.24-0.36) H 12/11/19 05:55 Eos # (Auto) 0.18 K/mm3 (0.04-0.36) 12/11/19 05:55 Baso # (Auto) 0.03 K/mm3 (0.01-0.08) 12/11/19 05:55 POC Glucose 103 mg/dL (70-105) 12/11/19 05:56 - Allergies Allergies/Adverse Reactions: Allergies Allergy/AdvReac Type Severity Reaction Status Date / Time latex Allergy Intermediate Rash Verified 12/11/19 00:44 nitrofurantoin Allergy Mild Rash Verified 12/11/19 00:44 [From Macrobid] nitrofurantoin Allergy Mild Rash Verified 12/11/19 00:44 macrocrystalline [From Macrobid] phenobarbital Allergy Unknown Rash Verified 12/11/19 00:44 - Acknowledgements Anesthesia Type Planned: Spinal Pt an Appropriate Candidate for the Planned Anesthesia: Yes Alternatives and Risks of Anesthesia Discussed w Pt/Guardian: Yes Pt/Guardian Understands and Agrees with Anesthesia Plan: Yes PreAnesthesia Questionnaire - Past Health History Medical/Surgical History: Denies Medical/Surgical History Cardiovascular History: Reports: Other (See Below) Other Cardiovascular History: Induced HTN with previous 2 pregnancies Respiratory History: Reports: Sleep Apnea Gastrointestinal History: Reports: GERD Genitourinary History: Reports: Urinary Incontinence 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 Neurological History: Reports: Migraines Psychiatric History: Reports: Depression, Panic Attack, PTSD Endocrine/Metabolic History: Reports: Diabetes, Gestational, Obesity/BMI 30+ (morbid) Hematologic History: Reports: Anemia - Infectious Disease History Infectious Disease History: Reports: Human Papilloma Virus (HPV) - Past Surgical History HEENT Surgical History: Reports: Myringotomy w Tube(s) Female Surgical History: Reports: Section - SUBSTANCE USE Smoking Status *Q: Current Every Day Smoker Tobacco Use Within Last Twelve Months: Cigarettes Second Hand Smoke Exposure: Yes Recreational Drug Use History: No - HOME MEDS Home Medications: Home Meds Pnv No.95/Ferrous Fum/Folic AC [ Tablet] 1 each PO BID 08/02/18 [History] Citalopram Hydrobromide [Celexa] 20 mg PO DAILY 11/13/19 [History] glipiZIDE [Glucotrol XL] 2.5 mg PO DAILY 11/13/19 [History] ALPRAZolam [Xanax] 0.25 mg PO DAILY PRN 12/10/19 [History] Hydrocortisone [Proctosol-HC] 1 dose TOP BID PRN 12/10/19 [History] - CURRENT (IN HOUSE) MEDS Current Meds: Current Medications Lactated Ringer's (Ringers, Lactated) 1,000 mls @ 125 mls/hr IV ASDIRECTED [facility] Last Admin: 12/11/19 06:18 Dose: 125 mls/hr Documented by: Oxytocin/Lactated Ringer's (Pitocin In Lr 20 Units/1,000 Ml) 20 unit in 1,000 mls @ 500 mls/hr IV ASDIRECTED [facility] Sodium Chloride (Saline Flush) 10 ml FLUSH ASDIRECTED PRN PRN Reason: Keep Vein Open Discontinued Medications Citric Acid/Sodium Citrate (Bicitra Solution) 30 ml PO ONETIME ONE Stop: 12/11/19 06:31 Cefazolin Sodium/Dextrose 2 gm (/ Premix) 50 mls @ 100 mls/hr IV ONETIME ONE Stop: 12/11/19 06:29 Cefazolin Sodium/Dextrose 1 gm (/ Premix) 50 mls @ 100 mls/hr IV ONETIME ONE Stop: 12/11/19 06:29 Lactated Ringer's (Ringers, Lactated) Confirm Administered Dose 1,000 mls @ as directed .ROUTE .STK-MED ONE Stop: 12/11/19 06:14 Last Admin: 12/11/19 06:18 Dose: Not Given Documented by: Metoclopramide HCl (Reglan) 10 mg IVPUSH ONETIME ONE Stop: 12/11/19 06:31
[2019-12-11] MEDS ORDERED: Bupivacaine 0.75%/D5W 2 ML Amp ONE (07:02)
[2019-12-11] MEDS ORDERED: Morphine PF 1 MG/ML Amp ONE (07:02)
[2019-12-11] MEDS ORDERED: EPINEPHrine 1 MG/ML SDV ONE (07:05)
[2019-12-11] MEDS ORDERED: Ondansetron 4 MG/2 ML SDV ONE (07:07)
[2019-12-11] MEDS ORDERED: ceFAZolin 1 GM Vial ONE (07:08)
[2019-12-11] MEDS ORDERED: Metoclopramide 10 MG/2 ML SDV ONE (07:13)
[2019-12-11] MEDS ORDERED: Bupivacaine 0.5% 30 ML SDV ONE (07:13)
[2019-12-11] MEDS ORDERED: Citric Acid/Sodium Citrate Solution 30 ML Cup ONE (07:14)
[2019-12-11] MEDS ORDERED: fentaNYL 100 MCG/2 ML SDV IVPUSH PRN (07:19)
[2019-12-11] MEDS ORDERED: diphenhydrAMINE 50 MG/ML SDV IVPUSH PRN ×2 (07:19→10:07)
[2019-12-11] MEDS ORDERED: Ondansetron 4 MG/2 ML SDV IVPUSH PRN (07:19)
[2019-12-11] MEDS ORDERED: Oxytocin 10 Units/1 ML SDV ONE (08:20)
[2019-12-11] MEDS ORDERED: Ketorolac 30 MG/ML SDV ONE (08:49)
--- NOTE | 2019-12-11 09:03 | PCM.POSTAN ---
POST ANESTHESIA ASSESSMENT - MENTAL STATUS Mental Status: Alert, Oriented - VITAL SIGNS Vital Signs: Last Vital Signs Temp 97.1 F 12/11/19 08:53 Pulse 65 12/11/19 08:53 Resp 19 12/11/19 08:53 BP 120/74 12/11/19 08:53 Pulse Ox 97 12/11/19 08:53 - RESPIRATORY Respiratory Status: Respiratory Rate WNL, Airway Patent, O2 Saturation Stable - CARDIOVASCULAR CV Status: Pulse Rate WNL, Blood Pressure Stable - GASTROINTESTINAL GI Status: No Symptoms - PAIN Pain Score: 0 (post SAB) - POST OP HYDRATION Hydration Status: Adequate & Stable
--- NOTE | 2019-12-11 09:10 | PCM.OPNOTE ---
- General Post-Op/Procedure Note Date of Surgery/Procedure: 12/11/19 Operative Procedure(s): Repeat lower uterine segment transverse section through Pfannenstiel skin incision Findings: Uterus, tubes and ovaries consistent with term . Baby in vertex presentation, occiput posterior presentation, nuchal cord 2 with shoulder cord and leg cord also. Apgars were 7 and 8, weight was 3870 g (8 lbs. 9 oz.) time was at 0815 hrs. on 12/11/2019. EBL was 600 mL. Urine output was 50 mL's. IV fluids in 2200 mL. Pre Op Diagnosis: 1. 39-2/7 week . 2. History of previous section with desire for repeat section. Post-Op Diagnosis: Same Anesthesia Technique: Spinal Other Anesthesia Type: Marcaine 0.5%20 mL total Primary Surgeon: Frederick Campbell Secondary Surgeon: Rishabh Cummins Anesthesia Provider: Everardo Coles Data Review Specialist: Angela Sharp Reason Data Review Specialist Was Necessary: Retraction, assistance, patient safety, quality of care. Fluid Replacement, Intraop: 2,200 EBL in mLs: 600 Drain/Tube Comments:: Indwelling bladder catheter Complications: None Condition: Good Free Text/Narrative:: Surgery duration: 37 minutes Surgery duration: Procedure: The patient is appropriately consented. Patient was transferred to the room and placed in a sitting position. Spinal anesthesia was administered. After confirmation of adequate anesthesia patient was placed in a supine position with a wedge under her right side to facilitate left lateral positioning. The patient was prepped and draped in usual fashion after Salguero catheter was already placed . The anesthetic was checked and found to be adequate. 20 mL of Marcaine 0.5% was injected locally in the Pfannenstiel incision site. The Pfannenstiel skin incision was then made and carried down through skin, subcutaneous and fascial layers. The fascia was then undermined superiorly and inferiorly to allow for adequate operating room. The recti muscles midline and preperitoneal fat was bluntly dissected. Peritoneal cavity was entered longitudinally. The vesicouterine peritoneum was then incised transversely and bladder flap was developed. Myometrium was incised transversely to the level of the amniotic sac. This incision was extended bilaterally in a blunt fashion. The amniotic sac was then ruptured resulting in clear amniotic fluid. A hand is placed in the low uterine segment and the baby's head was brought forth through the incision. The baby was completely delivered using fundal pressure in a routine fashion. The nose and mouth were bulb suctioned. Baby's cord was clamped x2 cut and baby was handed off to attending therapeutic massage technician Dr Maldonado. Placenta was expressed after cord blood was obtained. Uterus was then exteriorized to allow for easier closure. The cervix was assessed and found to be dilated adequately to allow egress of blood. The uterus was closed in 2 layers. The first layer a running locked suture of 0 Monocryl, the second layer a running locked vertical mattress suture of 0 Monocryl. [id number]-[id number] suture was placed at mid incision to control 1 bleeder. Hemostasis confirmed at this time. Sponge instrument needle counts are correct. The uterus was returned to the abdominal cavity and lateral gutters were cleared of blood. Once again sponge needle counts are correct. The anterior abdominal wall was closed with a #1 PDS suture from angle to angle. The subcutaneous area was found to be free of any bleeders. interrupted sutures of 3-0 Monocryl were used to reapproximate the subcutaneous layer.Skin was closed with a running subcuticular stitch of 3-0 Monocryl in a vertical mattress suture fashion using a Kayden needle. Prineo mesh/glue was then applied to further approximate the incision. It should be noted that patient received 3 g of Ancef preoperatively for infection prophylaxis and had Pitocin infused after delivery of the placenta to facilitate uterine contraction. She also had sequential compression stockings in place for DVT prophylaxis. Patient was discharged from the operating room in satisfactory condition.
[2019-12-11] MEDS ORDERED: Docusate Sodium 100 MG Cap PO PRN (10:07)
[2019-12-11] MEDS ORDERED: Ondansetron 4 MG/2 ML SDV IV PRN (10:07)
[2019-12-11] MEDS ORDERED: Dextrose 5%-Lactated Ringers 1,000 ML IV SCH (10:07)
[2019-12-11] MEDS ORDERED: ePHEDrine 50 MG/ML SDV IVPUSH PRN (10:07)
[2019-12-11] MEDS ORDERED: Naloxone 0.4 MG/ML SDV IVPUSH PRN (10:07)
[2019-12-11] MEDS: Citalopram 20 MG Tab PO SCH (10:29)
[2019-12-11] MEDS: Simethicone 80 MG Tab.Chew PO SCH ×3 (12:05→20:14)
[2019-12-11] MEDS: Acetaminophen/oxyCODONE 325-5 MG Tab PO PRN (14:00)
[2019-12-11] MEDS ORDERED: Sodium Chloride 0.9% 1,000 ML IV ONE (14:09)
[2019-12-11] MEDS: Ibuprofen 800 MG Tab PO SCH ×2 (15:37→23:00)
[2019-12-12] MEDS: Ibuprofen 800 MG Tab PO SCH ×3 (06:43→22:46)
[2019-12-12] MEDS: Acetaminophen/oxyCODONE 325-5 MG Tab PO PRN ×3 (07:56→18:04)
[2019-12-12] MEDS: Simethicone 80 MG Tab.Chew PO SCH ×3 (08:01→21:49)
[2019-12-12] MEDS: Prenatal Multivitamin with Calcium/Folic Acid/Iron Tab PO SCH (08:02)
--- NOTE | 2019-12-12 08:46 | PCM48HPAN ---
Post Anesthesia Note - EVALUATION WITHIN 48HRS OF ANESTHETIC Vital Signs in Normal Range: Yes Patient Participated in Evaluation: Yes Respiratory Function Stable: Yes Airway Patent: Yes Cardiovascular Function Stable: Yes Hydration Status Stable: Yes Pain Control Satisfactory: Yes Nausea and Vomiting Control Satisfactory: Yes Mental Status Recovered: Yes Vital Signs: Last Vital Signs Temp 98.1 F 12/12/19 02:55 Pulse 73 12/12/19 02:55 Resp 14 12/12/19 06:00 BP 113/81 12/12/19 02:55 Pulse Ox 98 12/12/19 06:00 - COMMENTS/OBSERVATIONS Free Text/Narrative:: Small bruise to back. Feels ok
[2019-12-12] MEDS: Citalopram 20 MG Tab PO SCH (08:56)
[2019-12-13] MEDS: Acetaminophen/oxyCODONE 325-5 MG Tab PO PRN ×2 (00:43→09:08)
[2019-12-13] MEDS: Ibuprofen 800 MG Tab PO SCH (07:22)
[2019-12-13] MEDS: Simethicone 80 MG Tab.Chew PO SCH (08:45)
[2019-12-13] MEDS: Citalopram 20 MG Tab PO SCH (08:45)
[2019-12-13] MEDS: Prenatal Multivitamin with Calcium/Folic Acid/Iron Tab PO SCH (08:45)
--- NOTE | 2019-12-13 08:47 | PCM.SN.2 ---
- Free Text/Narrative Note: note: Post operative day #1, postdated note: Patient is doing well in the period. Minimal lochia, voiding well, ambulated without problems. Nursing without concerns. I/O is good. Patient is afebrile, vital signs are stable Lungs are clear with good breath sounds in all lung vincent. Cardiovascular exam shows regular and rhythm. Abdomen is flat, soft, uterus is below the umbilicus and is firm and nontender. Incision appears to be well-healed. It is dry. Intact with no evidence of hematoma, seroma or infection. Legs are nontender. Trace pitting edema is present. Baby is on oxygen in level II nursery. Assessment: /post operative day #1 going well. Plan: Routine care. Patient be discharged home within the next 24-48 hours.
--- NOTE | 2019-12-13 08:54 | PCM.DCSUM1 ---
Discharge Summary - Hospital Course Free Text/Narrative:: Tosin is a 29-year-old 5 para 3013 white female is admitted on the a.m. of 12/11/2023 elective repeat section. The procedure, risks, benefits, alternatives of care including on onset of natural labor or induction of labor all discussed with patient. Patient underwent an elective repeat section on 12/11/2019. Findings at the time of the including the following: Uterus, tubes and ovaries consistent with term . Baby in vertex presentation, occiput posterior presentation, nuchal cord 2 with shoulder cord and leg cord also. Apgars were 7 and 8, weight was 3870 g (8 lbs. 9 oz.) time was at 0815 hrs. on 12/11/2019. EBL was 600 mL. Urine output was 50 mL's. IV fluids in 2200 mL. Pre Op Diagnosis: 1. 39-2/7 week . 2. History of previous section with desire for repeat section. Postoperative patient has done very well. She made good bowel, bladder and ambulatory activity. She is breast-feeding. Babies had some respiratory problems and is transferred to [place] for these. Etiology of these is uncertain. She is desiring discharge home so she can be with the baby in [place]. Diagnosis: Stroke: No - Discharge Data Discharge Date: 12/13/19 Discharge Disposition: Home, Self-Care 01 Condition: Good - Referral to Home Health Primary Care Physician: Mel Harrison PA-C - Patient Summary/Data Operative Procedure(s) Performed: Repeat lower uterine segment transverse section through Pfannenstiel skin incision - Patient Instructions Diet: Regular Diet as Tolerated Activity: As Tolerated (No intercourse or tampons until seen back. No lifting greater than 15 pounds 1 week. No driving a car 1 week.) Driving: Do Not Drive Showering/Bathing: May Shower Wound/Incision Care: Keep Operative Site/Wound Site Clean and Dry Notify Provider of: Fever, Increased Pain, Swelling and Redness, Nausea and/or Vomiting - Discharge Plan Home Medications: Home Meds Pnv No.95/Ferrous Fum/Folic AC [ Tablet] 1 each PO BID 08/02/18 [History] Citalopram Hydrobromide [Celexa] 20 mg PO DAILY 11/13/19 [History] glipiZIDE [Glucotrol XL] 2.5 mg PO DAILY 11/13/19 [History] ALPRAZolam [Xanax] 0.25 mg PO DAILY PRN 12/10/19 [History] Hydrocortisone [Proctosol-HC] 1 dose TOP BID PRN 12/10/19 [History] Patient Handouts: Care After Delivery, Steps to Quit Smoking Referrals: Frederick Campbell MD [Physician] - - Discharge Summary/Plan Comment DC Time >30 min.: No Discharge Summary/Plan Comment: Discharge instructions: 1. Discharge home 2. Diet, activity and follow-up discussed with patient. Recommend nursing diet with increased calories and calcium. 3. Precautions given concern increased pain, bleeding, temperature, signs/symptoms of DVT/PE. 4. Medications per home medication was printed, discussed with and given to the patient. 5. Return to clinic-[facility]. Campbell[facility] in 1 weeks. Diagnosis: Term -delivered Condition: Good - Patient Data Vitals - Most Recent: Last Vital Signs Temp 36.7 C 12/13/19 03:06 Pulse 81 12/13/19 03:13 Resp 14 12/13/19 03:06 BP 137/78 12/13/19 03:13 Pulse Ox 97 12/13/19 03:13 Weight - Most Recent: 120.656 kg I&O - Last 24 hours: Intake & Output 12/12/19 12/13/19 12/13/19 22:59 06:59 14:59 Intake Total 180 Balance 180 Med Orders - Current: Current Medications Citalopram Hydrobromide (Celexa) 20 mg PO DAILY [facility] Last Admin: 12/13/19 08:45 Dose: 20 mg Documented by: Diphenhydramine HCl (Benadryl) 25 mg IVPUSH Q6H PRN PRN Reason: Itching or Nausea Last Admin: 12/11/19 10:55 Dose: 25 mg Documented by: Docusate Sodium (Colace) 100 mg PO Q12H PRN PRN Reason: Constipation Ephedrine Sulfate (Ephedrine Sulfate) 5 mg IVPUSH SEECOMMENT PRN PRN Reason: Other Ibuprofen (Motrin) 800 mg PO Q8H [facility] Last Admin: 12/13/19 07:22 Dose: 800 mg Documented by: Naloxone HCl (Narcan) 0.1 mg IVPUSH SEECOMMENT PRN PRN Reason: Respiratory Depression Ondansetron HCl (Zofran) 4 mg IV Q4H PRN PRN Reason: Nausea/Vomiting Oxycodone/Acetaminophen (Percocet 325-5 Mg) 1 tab PO Q4H PRN PRN Reason: Pain (moderate 4-6) Last Admin: 12/12/19 18:04 Dose: 1 tab Documented by: Oxycodone/Acetaminophen (Percocet 325-5 Mg) 2 tab PO Q4H PRN PRN Reason: Pain (severe 7-10) Last Admin: 12/13/19 00:43 Dose: 2 tab Documented by: Prenat Multivit/[place]/Iron/Folic Ac ( Plus Iron) 1 each PO DAILY [facility] Last Admin: 12/13/19 08:45 Dose: 1 each Documented by: Simethicone (Simethicone) 160 mg PO QID [facility] Last Admin: 12/13/19 08:45 Dose: 160 mg Documented by: Discontinued Medications Bupivacaine HCl (Marcaine 0.5%) Confirm Administered Dose 30 ml .ROUTE .STK-MED ONE Stop: 12/11/19 07:14 Last Admin: 12/11/19 08:10 Dose: 20 ml Documented by: Bupivacaine HCl/Dextrose (Marcaine 0.75% Spinal) Confirm Administered Dose 2 ml .ROUTE .STK-MED ONE Stop: 12/11/19 07:03 Cefazolin Sodium (Ancef) Confirm Administered Dose 3 gm .ROUTE .STK-MED ONE Stop: 12/11/19 07:09 Citric Acid/Sodium Citrate (Bicitra Solution) 30 ml PO ONETIME ONE Stop: 12/11/19 06:31 Last Admin: 12/11/19 07:18 Dose: 30 ml Documented by: Citric Acid/Sodium Citrate (Bicitra Solution) Confirm Administered Dose 30 ml .ROUTE .STK-MED ONE Stop: 12/11/19 07:15 Last Admin: 12/11/19 07:29 Dose: Not Given Documented by: Diphenhydramine HCl (Benadryl) 25 mg IVPUSH Q6H PRN PRN Reason: Pruritis Epinephrine HCl (Adrenalin) Confirm Administered Dose 1 mg .ROUTE .STK-MED ONE Stop: 12/11/19 07:06 Fentanyl (Sublimaze) 50 mcg IVPUSH Q5M PRN PRN Reason: Pain Lactated Ringer's (Ringers, Lactated) 1,000 mls [facility] Admin: 12/11/19 06:18 Dose: 125 mls/hr Documented by: Cefazolin Sodium/Dextrose 2 gm (/ Premix) 50 mls @ 100 mls/hr IV ONETIME ONE Stop: 12/11/19 06:29 Last Admin: 12/11/19 20:57 Dose: Not Given Documented by: Cefazolin Sodium/Dextrose 1 gm (/ Premix) 50 mls @ 100 mls/hr IV ONETIME ONE Stop: 12/11/19 06:29 Last Admin: 12/11/19 20:57 Dose: Not Given Documented by: Oxytocin/Lactated Ringer's (Pitocin In Lr 20 Units/1,000 Ml) 20 unit in 1,000 mls @ 500 mls/[facility] Lactated Ringer's (Ringers, Lactated) Confirm Administered Dose 1,000 mls @ as directed .ROUTE .STK-MED ONE Stop: 12/11/19 06:14 Last Admin: 12/11/19 06:18 Dose: Not Given Documented by: Lactated Ringer's (Ringers, Lactated) Confirm Administered Dose 1,000 mls @ as directed .ROUTE .STK-MED ONE Stop: 12/11/19 08:04 Lactated Ringer's (Ringers, Lactated) Confirm Administered Dose 1,000 mls @ as directed .ROUTE .STK-MED ONE Stop: 12/11/19 08:36 Dextrose/Lactated Ringer's (Dextrose 5%-Lactated Ringers) 1,000 mls @ 125 mls/hr [facility] Stop: 12/11/19 18:06 Last Admin: 12/11/19 11:56 Dose: 125 mls/hr Documented by: Sodium Chloride (Normal Saline) 1,000 mls @ 1,000 mls/hr IV ONETIME ONE Stop: 12/11/19 15:08 Last Admin: 12/11/19 14:23 Dose: 1,000 mls/hr Documented by: Ketorolac Tromethamine (Toradol) Confirm Administered Dose 30 mg .ROUTE .STK-MED ONE Stop: 12/11/19 08:50 Lidocaine HCl (Xylocaine-Mpf 1%) Confirm Administered Dose 5 ml .ROUTE .STK-MED ONE Stop: 12/11/19 08:11 Metoclopramide HCl (Reglan) 10 mg IVPUSH ONETIME ONE Stop: 12/11/19 06:31 Last Admin: 12/11/19 07:19 Dose: 10 mg Documented by: Metoclopramide HCl (Reglan) Confirm Administered Dose 10 mg .ROUTE .STK-MED ONE Stop: 12/11/19 07:14 Last Admin: 12/11/19 07:29 Dose: Not Given Documented by: Miscellaneous Medication (Phenylephrine 1 Mg/10 Ml-Ns) Confirm Administered Dose 1 mg IV .STK-MED ONE Stop: 12/11/19 08:03 Morphine Sulfate (Duramorph Pf) Confirm Administered Dose 1 mg .ROUTE .STK-MED ONE Stop: 12/11/19 07:03 Ondansetron HCl (Zofran) Confirm Administered Dose 8 mg .ROUTE .STK-MED ONE Stop: 12/11/19 07:08 Ondansetron HCl (Zofran) 4 mg IVPUSH ONETIME PRN PRN Reason: Nausea/Vomiting Oxytocin (Pitocin) Confirm Administered Dose 20 unit .ROUTE .STK-MED ONE Stop: 12/11/19 08:21 Sodium Chloride (Saline Flush) 10 ml FLUSH ASDIRECTED PRN PRN Reason: Keep Vein Open
[2019-12-13 08:59] VITALS: BP 141/81; PULSE 78
== END 2019-12-13 09:30 | disposition home or self-care (01) | DRG 788 ==
LOC: JD.OB 05:34
PROVIDERS: ADMIT Obstetrics & Gynecology; ATTEND Obstetrics & Gynecology
PROC: 10D00Z1 Extraction of Products of Conception, Low, Open Approach (ICD-10-PCS; principal; 2019-12-11)
DX: O34.211 Maternal care for low transverse scar from previous cesarean delivery (principal); Z37.0 Single live birth; O99.344 Other mental disorders complicating childbirth; F32.9 Major depressive disorder, single episode, unspecified; O99.62 Diseases of the digestive system complicating childbirth; K21.9 Gastro-esophageal reflux disease without esophagitis; F41.0 Panic disorder [episodic paroxysmal anxiety]; O99.334 Smoking (tobacco) complicating childbirth; F17.200 Nicotine dependence, unspecified, uncomplicated; O99.02 Anemia complicating childbirth; D64.9 Anemia, unspecified; O99.214 Obesity complicating childbirth; E66.9 Obesity, unspecified; O69.81X0 Labor and delivery complicated by cord around neck, without compression, not applicable or unspecified; Z3A.39 39 weeks gestation of pregnancy; Z91.040 Latex allergy status; Z88.8 Allergy status to other drugs, medicaments and biological substances; Z79.899 Other long term (current) drug therapy
CPT/HCPCS: 01961; 36415; 59025; 82962; 85025; 86850; 86900; 86901; A9270-GY; J0171; J0690; J1200; J1885; J2001; J2274; J2370; J2405; J2590; J2765; J3490; J7030; J7120; J7121

== ENCOUNTER 2020-01-15 22:26 | Emergency (ER) | payer MEDICAID, SELFPAY ==
[2020-01-15] MEDS ORDERED: HYDROmorphone 0.5 MG/0.5 ML Syringe IVPUSH ONE (23:20)
[2020-01-15] MEDS ORDERED: Ondansetron 4 MG/2 ML SDV IVPUSH ONE (23:20)
[2020-01-15] MEDS ORDERED: Sodium Chloride 0.9% 10 ML Syringe FLUSH PRN (23:20)
[2020-01-16] MEDS ORDERED: Sulfamethoxazole/Trimethoprim 800-160 MG Tab PO ONE (00:28)
[2020-01-16] MEDS ORDERED: Ketorolac 30 MG/ML SDV IVPUSH SCH (00:30)
--- NOTE | 2020-01-16 00:33 | EDM.PDOC ---
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 She was seen at the clinic, I believe walk in earlier today. States a swab was done that came back nl. She has had no voiding sx, fever, chills or abnl discharge. Pain does not radiate, also does not go away. Hx of ovarian cysts in the past. Had a baby about 5 wks ago. Left Groin Pain Score (Numeric/FACES): 5 - Related Data Allergies Allergy/AdvReac Type Severity Reaction Status Date / Time latex Allergy Severe Rash Verified 01/15/20 22:57 nitrofurantoin Allergy Severe Rash Verified 01/15/20 22:57 [From Macrobid] nitrofurantoin Allergy Severe Rash Verified 01/15/20 22:57 macrocrystalline [From Macrobid] phenobarbital Allergy Severe Rash Verified 01/15/20 22:57 Home Meds: Home Meds Citalopram Hydrobromide [Celexa] 20 mg PO DAILY 11/13/19 [History] ALPRAZolam [Xanax] 0.25 mg PO DAILY PRN 12/10/19 [History] Sulfamethoxazole/Trimethoprim [Bactrim Ds Tablet] 1 each PO BID #10 tablet 01/16/20 [Rx] Past Medical History - Past Health History Medical/Surgical History: Denies Medical/Surgical History Cardiovascular History: Reports: Other (See Below) Other Cardiovascular History: Induced HTN with previous 2 pregnancies Respiratory History: Reports: Sleep Apnea Gastrointestinal History: Reports: GERD Genitourinary History: Reports: Urinary Incontinence 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 Neurological History: Reports: Migraines Psychiatric History: Reports: Depression, Panic Attack, PTSD Endocrine/Metabolic History: Reports: Diabetes, Gestational, Obesity/BMI 30+ Hematologic History: Reports: Anemia - Infectious Disease History Infectious Disease History: Reports: Human Papilloma Virus (HPV) - Past Surgical History HEENT Surgical History: Reports: Myringotomy w Tube(s) Female Surgical History: Reports: Section Social & Family History - Family History Family Medical History: Noncontributory - Tobacco Use Smoking Status *Q: Current Every Day Smoker Years of Tobacco use: 16 Packs/Tins Daily: 0.5 - Caffeine Use Caffeine Use: Reports: Coffee, Energy Drinks, Soda, Tea - Recreational Drug Use Recreational Drug Use: No - Living Situation & Occupation Living situation: Reports: , with Spouse, with Family (3 kids), 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 Denies: Nausea, Vomiting Musculoskeletal: Denies: Back Pain Skin: Reports: No Symptoms Neurological: Reports: No Symptoms ED EXAM, RENAL/ - Physical Exam Exam: See Below General Appearance: Alert, Mild Distress Head: Atraumatic Respiratory/Chest: No Respiratory Distress Cardiovascular: Regular Rate, Rhythm GI/Abdominal: Soft, Tender (L low abd and pelvis, remainder of abd soft and nontender) Back Exam: No: CVA Tenderness (L), CVA Tenderness (R) Extremities: Normal Inspection. No: Pedal Edema, Leg Pain Skin Exam: Warm, Dry, Normal Color, No Rash Course - Vital Signs Last Recorded V/S: Last Vital Signs Temp 97.0 F 01/16/20 00:50 Pulse 79 01/16/20 00:50 Resp 16 01/16/20 00:50 BP 116/68 01/16/20 00:50 Pulse Ox 99 01/16/20 00:50 - Orders/Labs/Meds Orders: Active Orders 24 hr Category Date Time Status Peripheral IV Insertion Adult [OM.PC] Stat Oth 01/15/20 23:20 Ordered Labs: Laboratory Tests 01/15/20 Range/Units 23:32 Urine Color Yellow (Yellow) Urine Appearance Clear (Clear) Urine pH 6.0 (5.0-8.0) Ur Specific Laura > or = 1.030 (1.005-1.030) Urine Protein Negative (Negative) Urine Glucose (UA) Negative (Negative) Urine Ketones Negative (Negative) Urine Occult Blood Negative (Negative) Urine Nitrite Negative (Negative) Urine Bilirubin Negative (Negative) Urine Urobilinogen 0.2 (0.2-1.0) Ur Leukocyte Esterase Trace H (Negative) Urine RBC Not seen (0-5) /hpf Urine WBC 5-10 H (0-5) /hpf Ur Squamous Epith Cells 5-10 H (0-5) /hpf Urine Bacteria Few (FEW) /hpf Urine Mucus Few (FEW) /hpf Meds: Medications Discontinued Medications Generic Name Dose Route Start Last Admin Trade Name Freq PRN Reason Stop Dose Admin Hydromorphone HCl 0.5 mg 01/15/20 23:20 01/15/20 23:41 Dilaudid IVPUSH 01/15/20 23:21 0.5 mg ONETIME ONE Administration Ketorolac Tromethamine 30 mg 01/16/20 00:30 01/16/20 00:49 Toradol IVPUSH 30 mg ONETIME JAVIER Administration Ondansetron HCl 4 mg 01/15/20 23:20 01/15/20 23:41 Zofran IVPUSH 01/15/20 23:21 4 mg ONETIME ONE Administration Sodium Chloride 10 ml 01/15/20 23:20 01/15/20 23:44 Saline Flush FLUSH 10 ml ASDIRECTED PRN Administration Keep Vein Open Trimethoprim/Sulfamethoxazole 1 tab 01/16/20 00:28 01/16/20 00:49 Septra Ds PO 01/16/20 00:29 1 tab ONETIME ONE Administration - Re-Assessments/Exams Free Text/Narrative Re-Assessment/Exam: 01/16/20 01:34 Ua shows trace leuk. pos, 5-10 WBC/HPF. Urine culture ordered. will start on bacrim BID. Have given dilaudid 0.5 mg IV, some but no complete relief. Will also give torodol IV, have written order for outpatient US. Discharge instr. as documented. Departure - Departure Time of Disposition: 00:29 Disposition: Home, Self-Care 01 Condition: Fair Clinical Impression: UTI (urinary tract infection), Pelvic pain - Discharge Information Prescriptions: Sulfamethoxazole/Trimethoprim [Bactrim Ds Tablet] 1 each PO BID #10 tablet Instructions: Pelvic Pain, Female, [id number], Urinary Tract Infection, Adult Referrals: Liliane Cespedes MD [Primary Care Provider] - Forms: ED Department Discharge Additional Instructions: Ua shows that you do have a low grade UTI. However that typically would not ca use discomfort as severe as what you are experiencing. This could be an ovarian cyst. Order has been written for outpatient pelvic US. Radiology will call you in the morning to get a time for that. Follow up with Dr Campbell at our [facility] or Dr Cespedes for results, further eval and treatment as needed. Urine culture has been done. Bacitrim DS antibiotic twice daily for 5 days. Prescription has been sent electronically to the medicine shop. Tylenol for mild to moderate pain or percocet previously prescribed for severe pain as needed. Sepsis Event Note (ED) - Evaluation Sepsis Screening Result: No Definite Risk - Focused Exam Vital Signs: Vital Signs Temp Pulse Resp BP Pulse Ox 01/16/20 00:50 97.0 F 79 16 116/68 99 01/16/20 00:23 69 16 121/79 98 01/15/20 23:01 97.7 F 74 20 139/78 99 - My Orders Last 24 Hours: My Active Orders 01/15/20 23:20 Peripheral IV Insertion Adult [OM.PC] Stat - Assessment/Plan Last 24 Hours: My Active Orders 01/15/20 23:20 Peripheral IV Insertion Adult [OM.PC] Stat
[2020-01-16 01:26] VITALS: BP 116/68; PULSE 79
== END 2020-01-16 01:00 | disposition home or self-care (01) ==
LOC: JD.ED 22:26
DX: O86.20 Urinary tract infection following delivery, unspecified (principal); O99.345 Other mental disorders complicating the puerperium; F41.0 Panic disorder [episodic paroxysmal anxiety]; F32.9 Major depressive disorder, single episode, unspecified; O99.215 Obesity complicating the puerperium; E66.9 Obesity, unspecified; O99.335 Smoking (tobacco) complicating the puerperium; F17.210 Nicotine dependence, cigarettes, uncomplicated; Z88.8 Allergy status to other drugs, medicaments and biological substances; Z91.040 Latex allergy status; Z88.1 Allergy status to other antibiotic agents; Z79.899 Other long term (current) drug therapy
CPT/HCPCS: 81001; 96374; 96375; 99284; A9270; J1170; J1885; J2405

== ENCOUNTER 2020-06-07 06:53 | Emergency (ER) | payer MEDICAID ==
[2020-06-07 07:19] VITALS: BP 144/98; PULSE 86
[2020-06-07] MEDS ORDERED: Ondansetron 4 MG Tab.DIS PO ONE (07:28)
[2020-06-07] MEDS ORDERED: LORazepam 0.5 MG Tab PO ONE (07:28)
[2020-06-07] MEDS ORDERED: Lidocaine 1% 50 ML MDV INJECT ONE (07:29)
[2020-06-07] MEDS ORDERED: Diphtheria,Pertussis(Acell),Tetanus Vaccine 0.5 ML Syringe IM ONE ×2 (07:37→09:23)
--- NOTE | 2020-06-07 08:02 | CT ---
Head CT Technique: Multiple axial sections through the brain were obtained. Intravenous contrast was not utilized. Reconstructed coronal and sagittal images were obtained. Comparison: No prior intracranial imaging is available. Findings: Ventricles along with basal cisterns and sulci over the convexities are within normal limits for the patient's age. No abnormal parenchymal densities are seen. No evidence of intracranial hemorrhage. No midline shift or mass-effect is seen. Bone window settings were reviewed. Visualized mastoid sinuses and paranasal sinuses show nothing acute. No acute calvarial abnormality is appreciated. Impression: 1. Nothing acute is identified on noncontrast head CT exam. Diagnostic code #1
--- NOTE | 2020-06-07 08:25 | EDM.PDOC ---
ED HPI GENERAL MEDICAL PROBLEM - General Chief Complaint: Laceration Stated Complaint: HEAD INJURY/VOMITING Time Seen by Provider: 06/07/20 07:16 Source of Information: Reports: Patient, RN Notes Reviewed - History of Present Illness INITIAL COMMENTS - FREE TEXT/NARRATIVE: 29 yr old female passed out at home a short time ago, had vaped just before that, stood up to walk and passed out. Brief LOC according to spouse. Suffered large lac R ant. neck, thinks she caught in hinge of door. Mild Tracy, feels nauseated, has not been vomiting. Feels very anxious, suffers from chronic anxiety. - Related Data Allergies Allergy/AdvReac Type Severity Reaction Status Date / Time latex Allergy Severe Rash Verified 06/07/20 07:19 nitrofurantoin Allergy Severe Rash Verified 06/07/20 07:19 [From Macrobid] nitrofurantoin Allergy Severe Rash Verified 06/07/20 07:19 macrocrystalline [From Macrobid] phenobarbital Allergy Severe Rash Verified 06/07/20 07:19 Home Meds: Home Meds Citalopram Hydrobromide [Celexa] 20 mg PO DAILY 11/13/19 [History] ALPRAZolam [Xanax] 0.25 mg PO DAILY PRN 12/10/19 [History] Sulfamethoxazole/Trimethoprim [Bactrim Ds Tablet] 1 each PO BID #10 tablet 01/16/20 [Rx] Ondansetron [Zofran ODT] 4 mg PO Q8HR PRN #7 tab.dis 06/07/20 [Rx] Past Medical History - Past Health History Medical/Surgical History: Denies Medical/Surgical History Cardiovascular History: Reports: Other (See Below) Other Cardiovascular History: Induced HTN with previous 2 pregnancies Respiratory History: Reports: Sleep Apnea Gastrointestinal History: Reports: GERD Genitourinary History: Reports: Urinary Incontinence 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 Neurological History: Reports: Migraines Psychiatric History: Reports: Depression, Panic Attack, PTSD Endocrine/Metabolic History: Reports: Diabetes, Gestational, Obesity/BMI 30+ Hematologic History: Reports: Anemia - Infectious Disease History Infectious Disease History: Reports: Human Papilloma Virus (HPV) - Past Surgical History HEENT Surgical History: Reports: Myringotomy w Tube(s) Female Surgical History: Reports: Section Social & Family History - Family History Family Medical History: No Pertinent Family History - Caffeine Use Caffeine Use: Reports: Coffee, Energy Drinks, Soda, Tea - Living Situation & Occupation Living situation: Reports: , with Spouse, with Family (3 kids), 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 Denies: Abdominal Pain, Diarrhea, Vomiting Musculoskeletal: Denies: Neck Pain Skin: Reports: Other (large skin lac R neck) Neurological: Reports: Dizziness (gone), Headache. Denies: Numbness, Tingling, Trouble Speaking, Difficulty Walking, Weakness ED EXAM, SKIN/RASH Exam: See Below General Appearance: Alert, Anxious Eye Exam: Bilateral Eye: PERRL Ears: Normal External Exam Nose: Normal Inspection Throat/Mouth: Normal Inspection Head: Atraumatic. No: Facial Swelling Neck: Supple, Other (6 cm moderately deep full thickness lac R ant/lat neck with curved flap configuration ) Respiratory/Chest: No: No Respiratory Distress, Lungs Clear, Normal Breath Sounds Cardiovascular: Regular Rate, Rhythm Extremities: Normal Inspection, Normal Range of Motion Neurological: Alert, Oriented, No Motor/Sensory Deficits Skin: Warm, Dry, Normal Color ED SKIN PROCEDURES - Laceration/Wound Repair Right Anterior Lateral Neck Appearance: Subcutaneous, Linear ( curve with mild flap) Distal NVT: Neuro & Vascular Intact Anesthetic Type: Local Local Anesthesia - Lidocaine (Xylocaine): 1% Plain Skin Prep: Saline Exploration/Debridement/Repair: Wound Explored, Explored to Base Lac/Wound length In cm: 6 Suture Size: 4-0 # of Sutures: 20 Suture Type: Nylon Course - Vital Signs Last Recorded V/S: Last Vital Signs Temp 98.0 F 06/07/20 07:14 Pulse 86 06/07/20 07:14 Resp 18 06/07/20 07:14 BP 144/98 H 06/07/20 07:14 Pulse Ox 98 06/07/20 07:14 - Orders/Labs/Meds Orders: Active Orders 24 hr Category Date Time Status Vaccines to be Administered [RC] PER UNIT ROUTINE Care 06/07/20 07:37 Active Vaccines to be Administered [RC] PER UNIT ROUTINE Care 06/07/20 09:24 Active Meds: Medications Discontinued Medications Generic Name Dose Route Start Last Admin Trade Name Freq PRN Reason Stop Dose Admin Diphtheria/Tetanus/Acell Pertussis 0.5 ml 06/07/20 07:37 06/07/20 09:23 Adacel IM 06/07/20 07:38 Not Given .ONCE ONE Diphtheria/Tetanus/Acell Pertussis 0.5 ml 06/07/20 09:23 Boostrix IM 06/07/20 09:24 .ONCE ONE Lidocaine HCl 50 ml 06/07/20 07:29 06/07/20 08:30 Xylocaine 1% INJECT 06/07/20 07:30 50 ml ONETIME ONE Administration Lorazepam 0.5 mg 06/07/20 07:28 06/07/20 08:29 Ativan PO 06/07/20 07:29 0.5 mg ONETIME ONE Administration Ondansetron HCl 4 mg 06/07/20 07:28 06/07/20 08:30 Zofran Odt PO 06/07/20 07:29 4 mg ONETIME ONE Administration - Re-Assessments/Exams Free Text/Narrative Re-Assessment/Exam: 06/07/20 08:[address] is neg. 09:25, Pt feels much better after zofran 4 mg ODT. No tracy, nausea is gone. Departure - Departure Time of Disposition: 09:12 Disposition: Home, Self-Care 01 Condition: Fair Clinical Impression: Syncope Qualifiers: Syncope type: unspecified Qualified Code(s): R55 - Syncope and collapse Laceration of neck Qualifiers: Encounter type: initial encounter Qualified Code(s): S11.91XA - Laceration without foreign body of unspecified part of neck, initial encounter - Discharge Information Prescriptions: Ondansetron [Zofran ODT] 4 mg PO Q8HR PRN #7 tab.dis PRN Reason: Nausea/Vomiting Instructions: Syncope, [id number] Referrals: PCP,None [Primary Care Provider] - Forms: ED Department Discharge Additional Instructions: Lac care instructions. Ice packs and elevation today and tomorrow to help get the swelling down. Antibiotic ointment 2 to 3 times daily over laceration. Zofran 4 mg q 8 hr if needed for any further nausea or vomiting. This has been sent electronic to the clinic pharmacy. Stitches out in 12 days at your clinic. Call for appt. Have rechecked any sign of infection. Sepsis Event Note (ED) - Evaluation Sepsis Screening Result: No Definite Risk - Focused Exam Vital Signs: Vital Signs Temp Pulse Resp BP Pulse Ox 06/07/20 07:14 98.0 F 86 18 144/98 H 98 - My Orders Last 24 Hours: My Active Orders 06/07/20 07:37 Vaccines to be Administered [RC] PER UNIT ROUTINE 06/07/20 09:24 Vaccines to be Administered [RC] PER UNIT ROUTINE - Assessment/Plan Last 24 Hours: My Active Orders 06/07/20 07:37 Vaccines to be Administered [RC] PER UNIT ROUTINE 06/07/20 09:24 Vaccines to be Administered [RC] PER UNIT ROUTINE
== END 2020-06-07 11:45 | disposition home or self-care (01) ==
LOC: JD.ED 06:53
DX: S11.91XA Laceration without foreign body of unspecified part of neck, initial encounter (principal); E66.9 Obesity, unspecified; Z68.41 Body mass index [BMI] 40.0-44.9, adult; R55 Syncope and collapse; Z88.7 Allergy status to serum and vaccine; Z91.040 Latex allergy status; Z88.1 Allergy status to other antibiotic agents; Z88.8 Allergy status to other drugs, medicaments and biological substances; Z79.899 Other long term (current) drug therapy; Z23 Encounter for immunization; W23.0XXA Caught, crushed, jammed, or pinched between moving objects, initial encounter
CPT/HCPCS: 12002; 70450; 90471; 90715; 99284; A9270; J2001; 99283

== ENCOUNTER 2020-08-06 09:34 | Emergency (ER) | payer OTHER, MEDICAID ==
[2020-08-06 09:52] VITALS: BP 135/94; PULSE 87
[2020-08-06] MEDS ORDERED: Iopamidol 612 MG/ML 50 ML SDV IVPUSH ONE (10:42)
[2020-08-06] MEDS ORDERED: Iopamidol 612 MG/ML 100 ML Bottle IVPUSH ONE (10:42)
[2020-08-06] MEDS ORDERED: Sodium Chloride 0.9% 10 ML Syringe FLUSH ONE (10:42)
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
--- NOTE | 2020-08-06 11:19 | CT ---
CT chest Technique: Multiple axial sections were obtained from above the lung apices inferiorly through the lung bases. Intravenous contrast was utilized. Reconstructed coronal and sagittal images were obtained. Comparison: Previous CT chest dated 09/16/18. Findings: No pericardial thickening is seen. Thoracic aorta shows no aneurysm. No mediastinal or hilar adenopathy is seen. No axillary adenopathy is appreciated. Lungs show no acute parenchymal change. No pleural effusions or pneumothorax is appreciated. Bone window settings were reviewed which show no acute osseous finding. Impression: 1. Nothing acute is seen on CT study of the chest. Diagnostic code #1 CT abdomen and pelvis Technique: Multiple axial sections were obtained from above the dome of the diaphragm inferiorly through the pubic symphysis. Intravenous contrast was utilized. No oral contrast has been given. Delayed images were also obtained through the pelvis. Reconstructed coronal and sagittal images were also obtained. Comparison: Prior CT abdomen and pelvis exam of 11/27/14. Findings: Fatty infiltration is noted within the liver which has progressed from prior exam. Nothing acute is appreciated within the liver. Spleen is normal in size. Several soft tissue nodules are seen off the spleen which are believed to represent accessory splenic tissue. Adrenal glands show no nodule. No discrete pancreatic abnormality is seen. Both kidneys show symmetric contrast enhancement without abnormal parenchymal densities. Delayed images show contrast within the visualized ureters and within the bladder. Abdominal aorta shows no aneurysm. No retroperitoneal adenopathy or mesenteric abnormalities are seen. Appendix is not definitely visualized. No pelvic mass or adenopathy is appreciated. No free fluid or inflammatory change is seen. Bone window settings were reviewed. Small sclerotic area is identified within the spine which is stable. This is compatible with bone island. No acute osseous abnormality is appreciated. Impression: 1. Fatty infiltration within the liver which has progressed from prior exam. 2. Nothing acute is appreciated on CT study of the abdomen and pelvis. Diagnostic code #2
--- NOTE | 2020-08-06 11:19 | CT ---
CT cervical spine Technique: Multiple axial sections were obtained from above C1 inferiorly to the mid T2 level. Reconstructed coronal and sagittal images were obtained. Comparison: No prior cervical spine imaging is available. Findings: Vertebral body heights and disc spaces are maintained. No bony central or bony neural foraminal stenosis is seen. No fracture is appreciated. No abnormal subluxation is seen. Impression: 1. Nothing acute is seen on CT study of the cervical spine. Diagnostic code #1
[2020-08-06] MEDS ORDERED: Ketorolac 30 MG/ML SDV IVPUSH ONE (11:22)
== END 2020-08-06 11:55 | disposition home or self-care (01) ==
LOC: JD.ED 09:34
DX: S16.1XXA Strain of muscle, fascia and tendon at neck level, initial encounter (principal); M54.6 Pain in thoracic spine; R10.33 Periumbilical pain; E66.9 Obesity, unspecified; Z68.41 Body mass index [BMI] 40.0-44.9, adult; Z72.0 Tobacco use; Z91.040 Latex allergy status; Z88.1 Allergy status to other antibiotic agents; Z88.8 Allergy status to other drugs, medicaments and biological substances; Z79.899 Other long term (current) drug therapy; V43.52XA Car driver injured in collision with other type car in traffic accident, initial encounter
CPT/HCPCS: 71260; 72125; 74177; 96374; 99284; J1885; Q9967

== ENCOUNTER 2020-11-28 18:19 | Emergency (ER) | payer MEDICAID ==
[2020-11-28] MEDS ORDERED: Sodium Chloride 0.9% 10 ML Syringe FLUSH PRN (18:34)
[2020-11-28 18:39] VITALS: BP 133/86; PULSE 88
--- NOTE | 2020-11-28 18:45 | EDM.PDOC ---
ED HPI GENERAL MEDICAL PROBLEM - General Chief Complaint: Chest Pain Stated Complaint: CHEST PAIN Time Seen by Provider: 11/28/20 18:33 Source of Information: Reports: Patient, RN Notes Reviewed History Limitations: Reports: No Limitations - History of Present Illness INITIAL COMMENTS - FREE TEXT/NARRATIVE: Patient is a 30-year-old female presents to the ER for the evaluation of her left-sided chest pain. Patient notes that this has been present for about the last half hour. Notes that it is sharp in nature, and kind of comes and goes. She does not know anything that really makes it better or worse. She not complaining of any radiation into her neck or chest. She states that it does feel worse when she pushes on her left chest. Patient states that she did celebrate her birthday yesterday, by having a few drinks with her . So she thought maybe she could have just been slightly hung over, and she did feel quite tired this morning so she did drink red bull, she states that she did normally does not drink energy drinks. She is feeling slightly nauseous but no vomiting or diarrhea, no cough or shortness of breath. Left Chest Pain Score (Numeric/FACES): 8 - Related Data Allergies Allergy/AdvReac Type Severity Reaction Status Date / Time latex Allergy Severe Rash Verified 11/28/20 18:33 nitrofurantoin Allergy Severe Rash Verified 11/28/20 18:33 [From Macrobid] nitrofurantoin Allergy Severe Rash Verified 11/28/20 18:33 macrocrystalline [From Macrobid] phenobarbital Allergy Severe Rash Verified 11/28/20 18:33 Home Meds: Home Meds Citalopram Hydrobromide [Celexa] 20 mg PO DAILY 11/13/19 [History] ALPRAZolam [Xanax] 0.25 mg PO DAILY PRN 12/10/19 [History] Past Medical History - Past Health History Medical/Surgical History: Denies Medical/Surgical History Cardiovascular History: Reports: Other (See Below) Other Cardiovascular History: Induced HTN with previous 2 pregnancies Respiratory History: Reports: Sleep Apnea Gastrointestinal History: Reports: GERD Genitourinary History: Reports: Urinary Incontinence PROJECTION PRINTER History: Reports: Endometriosis, , Spontaneous , Other (See Below) Other PROJECTION PRINTER History: Ovarian cyst. 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 Neurological History: Reports: Migraines Psychiatric History: Reports: Anxiety, Depression, Panic Attack, PTSD Endocrine/Metabolic History: Reports: Diabetes, Gestational, Obesity/BMI 30+ Hematologic History: Reports: Anemia - Infectious Disease History Infectious Disease History: Reports: Human Papilloma Virus (HPV), Novel Coronavirus - Past Surgical History HEENT Surgical History: Reports: Myringotomy w Tube(s) Female Surgical History: Reports: Section Social & Family History - Family History Family Medical History: No Pertinent Family History - Caffeine Use Caffeine Use: Reports: Coffee, Energy Drinks, Soda, Tea - Living Situation & Occupation Living situation: Reports: , with Spouse, with Family (3 kids), 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 ED EXAM, GENERAL - Physical Exam Exam: See Below Exam Limited By: No Limitations General Appearance: Alert, WD/WN, No Apparent Distress Respiratory/Chest: No Respiratory Distress, Lungs Clear, Normal Breath Sounds, No Accessory Muscle Use, Other (left chest tender to palpation.) Cardiovascular: Normal Peripheral Pulses, Regular Rate, Rhythm, No Edema Peripheral Pulses: 2+: Radial (L), Radial (R) GI/Abdominal: Normal Bowel Sounds, Soft, Non-Tender, No Distention, No Mass Neurological: Alert, Oriented, Normal Cognition, No Motor/Sensory Deficits Psychiatric: Normal Affect, Normal Mood Skin Exam: Warm, Dry, Intact, Normal Color, No Rash #1 Interpretation EKG Date: 11/28/20 Time: 18:36 Rhythm: NSR Rate (Beats/Min): 67 [place]: Normal P-Wave: Present QRS: Normal ST-T: Normal QT: Normal Comparison: NA - No Prior EKG EKG Interpretation Comments: No obvious ischemia or acute ST changes noted, reviewed by myself and Dr. Coker. Course - Vital Signs Last Recorded V/S: Last Vital Signs Temp 97.4 F 11/28/20 18:25 Pulse 88 11/28/20 18:25 Resp 18 11/28/20 18:25 BP 133/86 11/28/20 18:25 Pulse Ox 100 11/28/20 18:25 - Orders/Labs/Meds Orders: Active Orders 24 hr Category Date Time Status EKG Documentation Completion [RC] STAT Care 11/28/20 18:34 Active Peripheral IV Care [RC] . DIRECTED Care 11/28/20 18:34 Active Sodium Chloride 0.9% [Saline Flush] Med 11/28/20 18:34 Active 10 ml FLUSH ASDIRECTED PRN Peripheral IV Insertion Adult [OM.PC] Stat Oth 11/28/20 18:34 Ordered Medication Orders Sodium Chloride (Sodium Chloride 0.9% 10 Ml Syringe) 10 ml FLUSH ASDIRECTED PRN PRN Reason: Keep Vein Open Labs: Laboratory Tests 11/28/20 11/28/20 11/28/20 Range/Units 19:04 19:04 19:04 WBC 9.57 (3.98-10.04) K/mm3 RBC 4.80 (3.98-5.22) M/mm3 Hgb 13.1 D (11.2-15.7) gm/dl Hct 40.6 (34.1-44.9) % MCV 84.6 (79.4-94.8) fl MCH 27.3 (25.6-32.2) pg MCHC 32.3 (32.2-35.5) g/dl RDW Std Deviation 43.5 (36.4-46.3) fL Plt Count 386 H (182-369) K/mm3 MPV 9.2 L (9.4-12.3) fl Neut % (Auto) 64.2 (34.0-71.1) % Lymph % (Auto) 26.6 (19.3-51.7) % [place] % (Auto) 6.1 (4.7-12.5) % Eos % (Auto) 2.6 (0.7-5.8) Baso % (Auto) 0.4 (0.1-1.2) % Neut # (Auto) 6.14 H (1.56-6.13) K/mm3 Lymph # (Auto) 2.55 (1.18-3.74) K/mm3 [place] # (Auto) 0.58 H (0.24-0.36) K/mm3 Eos # (Auto) 0.25 (0.04-0.36) K/mm3 Baso # (Auto) 0.04 (0.01-0.08) K/mm3 PT 10.1 (9.7-12.0) SECONDS INR 0.94 APTT 25.1 (21.7-31.4) SECONDS D-Dimer, Quantitative 0.71 H (0.19-0.50) mg/L Sodium 142 (136-145) mEq/L Potassium 3.6 (3.5-5.1) mEq/L Chloride 105 (98-107) mEq/L Carbon Dioxide 28 (21-32) mEq/L Anion Gap 12.6 (5-15) BUN 12 (7-18) mg/dL Creatinine 0.8 (0.55-1.02) mg/dL Est Cr Clr Drug Dosing 88.79 mL/min Estimated GFR (MDRD) > 60 (>60) mL/min BUN/Creatinine Ratio 15.0 (14-18) Glucose 114 H (70-99) mg/dL Calcium 8.2 L (8.5-10.1) mg/dL Magnesium 1.8 (1.8-2.4) mg/dL Total Bilirubin 0.1 L (0.2-1.0) mg/dL AST 44 H (15-37) U/L ALT 85 H (14-59) U/L Alkaline Phosphatase 87 (46-116) U/L Troponin I < 0.017 (0.00-0.056) ng/mL Total Protein 7.1 (6.4-8.2) g/dl Albumin 3.5 (3.4-5.0) g/dl Globulin 3.6 gm/dL Albumin/Globulin Ratio 1.0 (1-2) Meds: Medications Generic Name Dose Route Start Last Admin Trade Name Freq PRN Reason Stop Dose Admin Sodium Chloride 10 ml 11/28/20 18:34 Sodium Chloride 0.9% 10 Ml Syringe FLUSH ASDIRECTED PRN Keep Vein Open - Re-Assessments/Exams Free Text/Narrative Re-Assessment/Exam: 11/28/20 18:45 Patient presents to the ER for her chest pain, on exam it does appear to be chest wall tenderness for the most part however we will go ahead and get some basic labs for initial evaluation, EKG initially shows no acute ST change or other worrisome abnormalities. 11/28/20 19:59 Laboratory evaluation is fairly unremarkable, the patient's D-dimer is slightly elevated at 0.71. All other aspects of her exam would be negative for signs of PE, except for the chest discomfort. I did go over the findings with the patient, and she would rather not have a CTA done at today's visit. She will hold off at this time. I did explain to her that there is still a small chance that this could be a PE and she verbalized understanding. She was cautioned to look out for worsening signs and symptoms, and also verbalized understanding for when to return. Departure - Departure Time of Disposition: 20:00 Disposition: Home, Self-Care 01 Condition: Good Clinical Impression: Musculoskeletal chest pain Instructions: Nonspecific Chest Pain, Adult, [id number] Referrals: Liliane Cespedes MD [Primary Care Provider] - Forms: ED Department Discharge, ED Return to Work/School Form Additional Instructions: You were evaluated in the ER today for your chest pain. Your EKG, chest x-ray, and laboratory evaluation are all unremarkable. Chest pain is thought likely due to musculoskeletal etiology. You may use 500 mg Tylenol or 600 mg ibuprofen every 6 hours as needed for further pain relief. You may also try hot packs or ice packs to the area, to see if this helps relieve some of your pain. Your D-dimer test was slightly elevated at 0.71, which is slightly elevated. An elevated D-dimer, sometimes can be indicative of a pulmonary embolus. A CTA is the definitive test to evaluate for PE, this was not done at today's visit. If you should change your mind, and would want this for further evaluation, do not hesitate to return to the ER for further evaluation. Please follow-up with your regular provider for ongoing management of your health. Please return to the ER at any time if symptoms change or worsen. Sepsis Event Note (ED) - Evaluation Sepsis Screening Result: No Definite Risk - Focused Exam Vital Signs: Vital Signs Temp Pulse Resp BP Pulse Ox 11/28/20 18:25 97.4 F 88 18 133/86 100 - My Orders Last 24 Hours: My Active Orders 11/28/20 18:34 EKG Documentation Completion [RC] STAT Peripheral IV Care [RC] . DIRECTED Sodium Chloride 0.9% [Saline Flush] 10 ml FLUSH ASDIRECTED PRN Peripheral IV Insertion Adult [OM.PC] Stat - Assessment/Plan Last 24 Hours: My Active Orders 11/28/20 18:34 EKG Documentation Completion [RC] STAT Peripheral IV Care [RC] . DIRECTED Sodium Chloride 0.9% [Saline Flush] 10 ml FLUSH ASDIRECTED PRN Peripheral IV Insertion Adult [OM.PC] Stat
--- NOTE | 2020-11-28 20:18 | CR ---
Chest: Portable view of the chest was obtained. Comparison: Prior chest x-ray of 04/01/10. Heart size and mediastinum are normal. Lungs are clear with no acute parenchymal change. No acute osseous abnormality is appreciated. Slight scoliosis is noted which may be positional. Impression: 1. Nothing acute is appreciated on portable chest x-ray. Diagnostic code #1
== END 2020-11-28 20:25 | disposition home or self-care (01) ==
LOC: JD.ED 18:19
DX: R07.89 Other chest pain (principal); E66.9 Obesity, unspecified; Z68.41 Body mass index [BMI] 40.0-44.9, adult; Z91.040 Latex allergy status; Z88.1 Allergy status to other antibiotic agents; Z88.8 Allergy status to other drugs, medicaments and biological substances; Z79.899 Other long term (current) drug therapy
CPT/HCPCS: 36415; 71045; 71045-26; 80053; 83735; 84484; 85025; 85379; 85610; 85730; 93005; 93010; 99284; 99285-25

== ENCOUNTER 2023-01-29 00:54 | Emergency (ER) | payer BC, MEDICAID ==
[2023-01-29] MEDS ORDERED: LORazepam 1 MG Tab PO ONE (01:25)
[2023-01-29 01:37] LABS: BASOPHILS PERCENT AUTO 0.3 % (0.0-1.0); EOSINOPHILS ABSOLUTE AUTO 0.2 K/mm3 (0.0-0.4); EOSINOPHILS PERCENT AUTO 1.7 % (0.0-6.0); HEMATOCRIT 41.4 % (37.0-47.0); HEMOGLOBIN 14.1 gm/dl (12.0-16.0); IMMATURE GRAN ABSOLUTE AUTO 0.02 K/mm3 (0.00-0.05); IMMATURE GRAN PERCENT AUTO 0.2 % (0.0-0.4); LYMPHOCYTES ABSOLUTE AUTO 1.9 K/mm3 (1.0-4.8); LYMPHOCYTES PERCENT AUTO 16.6 % (24.0-44.0); MEAN CORPUSCULAR HEMOGLOBIN 28.4 pg (28.0-32.0); MEAN CORPUSCULAR HGB CONC 34.1 g/dl (32.0-36.0); MEAN CORPUSCULAR VOLUME 83.5 fl (83.0-99.0); MEAN PLATELET VOLUME 8.8 fl (9.4-12.3); MONOCYTES ABSOLUTE AUTO 0.5 K/mm3 (0.0-0.8); MONOCYTES PERCENT AUTO 4.3 % (0.0-8.0); NEUTROPHILS ABSOLUTE AUTO 8.9 K/mm3 (1.8-7.7); NEUTROPHILS PERCENT AUTO 76.9 % (41.0-71.0); PLATELET COUNT,PLT 354 K/mm3 (150-400); RED BLOOD CELL COUNT 4.96 M/mm3 (4.10-5.30); WHITE BLOOD CELL COUNT,WBC 11.59 K/mm3 (3.9-11.3)
[2023-01-29] MEDS ORDERED: Ondansetron 4 MG Tab.DIS PO ONE (02:19)
[2023-01-29 02:24] LABS: ALBUMIN 3.8 g/dl (3.4-5.0); BILIRUBIN TOTAL 0.1 mg/dL (0.2-1.0); BUN/CREATININE RATIO 12.5 (14-18); CALCIUM 9.2 mg/dL (8.5-10.1); CREATININE 0.8 mg/dL (0.55-1.02); EST CRCL DRUG DOSING (CG) 89.01 mL/min; PROTEIN TOTAL,TP 7.6 g/dl (6.4-8.2); TSH 5.985 uIU/mL (0.358-3.74)
[2023-01-29 03:52] VITALS: BP 145/90; PULSE 90
== END 2023-01-29 03:00 | disposition home or self-care (01) ==
LOC: JD.ED 00:54
DX: F41.9 Anxiety disorder, unspecified (principal); I10 Essential (primary) hypertension; E66.9 Obesity, unspecified; Z68.41 Body mass index [BMI] 40.0-44.9, adult; Z79.899 Other long term (current) drug therapy; Z98.890 Other specified postprocedural states; Z88.1 Allergy status to other antibiotic agents; Z91.040 Latex allergy status; Z88.8 Allergy status to other drugs, medicaments and biological substances
CPT/HCPCS: 36415; 80053; 84443; 85025; 99283; A9270

== ENCOUNTER 2023-02-08 02:31 | Emergency (ER) | payer BC ==
[2023-02-08] MEDS ORDERED: Ondansetron 4 MG/2 ML SDV IVPUSH ONE (02:56)
[2023-02-08 03:31] LABS: BASOPHILS ABSOLUTE AUTO 0.1 K/mm3 (0.0-0.2); BASOPHILS PERCENT AUTO 0.5 % (0.0-1.0); EOSINOPHILS ABSOLUTE AUTO 0.1 K/mm3 (0.0-0.4); HEMATOCRIT 41.5 % (37.0-47.0); HEMOGLOBIN 13.9 gm/dl (12.0-16.0); IMMATURE GRAN ABSOLUTE AUTO 0.03 K/mm3 (0.00-0.05); IMMATURE GRAN PERCENT AUTO 0.3 % (0.0-0.4); LYMPHOCYTES ABSOLUTE AUTO 1.6 K/mm3 (1.0-4.8); LYMPHOCYTES PERCENT AUTO 14.2 % (24.0-44.0); MEAN CORPUSCULAR HEMOGLOBIN 28.3 pg (28.0-32.0); MEAN CORPUSCULAR HGB CONC 33.5 g/dl (32.0-36.0); MEAN CORPUSCULAR VOLUME 84.3 fl (83.0-99.0); MEAN PLATELET VOLUME 8.7 fl (9.4-12.3); MONOCYTES ABSOLUTE AUTO 0.3 K/mm3 (0.0-0.8); MONOCYTES PERCENT AUTO 3.1 % (0.0-8.0); NEUTROPHILS PERCENT AUTO 80.9 % (41.0-71.0); PLATELET COUNT,PLT 361 K/mm3 (150-400); RED BLOOD CELL COUNT 4.92 M/mm3 (4.10-5.30); WHITE BLOOD CELL COUNT,WBC 11.07 K/mm3 (3.9-11.3)
[2023-02-08 03:57] LABS: INR 0.96; PROTHROMBIN TIME 10.3 SECONDS (9.7-12.0)
[2023-02-08 04:01] LABS: D-DIMER QUANTITATIVE 0.54 mg/L (0.19-0.50)
[2023-02-08 04:07] LABS: A/G RATIO 0.9 (1-2); ALANINE AMINOTRANSFERASE,ALT 47 U/L (14-59); ALBUMIN 3.6 g/dl (3.4-5.0); ALKALINE PHOSPHATASE 78 U/L (46-116); ANION GAP 15.9 (5-15); ASPARTATE AMNIOTRANSFERASE,AST 20 U/L (15-37); BILIRUBIN TOTAL 0.1 mg/dL (0.2-1.0); BLOOD UREA NITROGEN,BUN 9 mg/dL (7-18); BUN/CREATININE RATIO 11.3 (14-18); CALCIUM 9.3 mg/dL (8.5-10.1); CARBON DIOXIDE,CO2 22 mEq/L (21-32); CHLORIDE,CL 105 mEq/L (98-107); CREATININE 0.8 mg/dL (0.55-1.02); EST CRCL DRUG DOSING (CG) 90.84 mL/min; ESTIMATED GFR 100 mL/min (>60); GLUCOSE RANDOM 138 mg/dL (70-99); POTASSIUM,K 3.9 mEq/L (3.5-5.1); PROTEIN TOTAL,TP 7.5 g/dl (6.4-8.2); SODIUM,NA 139 mEq/L (136-145)
[2023-02-08 04:09] LABS: TROPONIN I HIGH SENSITIVITY < 4 pg/mL (<=51)
[2023-02-08] MEDS ORDERED: Iopamidol 755 Mg/ML 100 ML Bottle IVPUSH ONE (04:27)
[2023-02-08 05:30] VITALS: BP 135/87; PULSE 67
== END 2023-02-08 05:11 | disposition home or self-care (01) ==
LOC: JD.ED 02:31
DX: R10.13 Epigastric pain (principal); I10 Essential (primary) hypertension; E66.9 Obesity, unspecified; Z79.899 Other long term (current) drug therapy; Z91.040 Latex allergy status; Z88.8 Allergy status to other drugs, medicaments and biological substances
CPT/HCPCS: 36415; 71045; 71275; 80053; 84484; 85025; 85379; 85610; 93005; 96374; 99284; J2405; Q9967; 93010

== ENCOUNTER 2023-02-20 23:29 | Emergency (ER) | payer BC ==
[2023-02-21] MEDS ORDERED: LORazepam 1 MG Tab PO ONE (01:56)
[2023-02-21] MEDS ORDERED: Ondansetron 4 MG Tab.DIS PO ONE (02:07)
[2023-02-21 03:22] VITALS: BP 153/90; PULSE 78
== END 2023-02-21 03:15 | disposition home or self-care (01) ==
LOC: JD.ED 23:29
DX: R11.2 Nausea with vomiting, unspecified (principal); I10 Essential (primary) hypertension; F17.210 Nicotine dependence, cigarettes, uncomplicated; E66.9 Obesity, unspecified; Z68.41 Body mass index [BMI] 40.0-44.9, adult; Z91.040 Latex allergy status; Z88.8 Allergy status to other drugs, medicaments and biological substances
CPT/HCPCS: 99283; A9270; 99282

== ENCOUNTER 2023-03-03 00:54 | Emergency (ER) | payer BC ==
[2023-03-03] MEDS ORDERED: Ondansetron 4 MG Tab.DIS PO ONE ×2 (02:28→04:25)
[2023-03-03 03:22] LABS: CORONAVIRUS COVID-19 NAA NEGATIVE (NEGATIVE); INFLUENZA A NAA NEGATIVE (NEGATIVE); RESPIRATORY SYNCYTIAL VIR NAA NEGATIVE (NEGATIVE)
[2023-03-03 04:51] VITALS: BP 143/91; PULSE 106
== END 2023-03-03 04:43 | disposition home or self-care (01) ==
LOC: JD.ED 00:54
DX: R42 Dizziness and giddiness (principal); R11.0 Nausea; I10 Essential (primary) hypertension; E66.9 Obesity, unspecified; F17.210 Nicotine dependence, cigarettes, uncomplicated; Z68.41 Body mass index [BMI] 40.0-44.9, adult; Z20.822 Contact with and (suspected) exposure to COVID-19; Z86.16 Personal history of COVID-19; Z88.8 Allergy status to other drugs, medicaments and biological substances; Z91.040 Latex allergy status
CPT/HCPCS: 0241U; 99284; A9270; 99283

== ENCOUNTER 2023-03-25 14:56 | Emergency (ER) | payer BC ==
[2023-03-25] MEDS ORDERED: Sodium Chloride 0.9% 10 ML Syringe FLUSH PRN (15:46)
[2023-03-25] MEDS ORDERED: Aspirin 81 MG Tab.Chew PO ONE (15:46)
[2023-03-25 15:57] LABS: BASOPHILS PERCENT AUTO 0.4 % (0.0-1.0); EOSINOPHILS ABSOLUTE AUTO 0.3 K/mm3 (0.0-0.4); EOSINOPHILS PERCENT AUTO 2.7 % (0.0-6.0); HEMATOCRIT 44.3 % (37.0-47.0); HEMOGLOBIN 14.8 gm/dl (12.0-16.0); IMMATURE GRAN ABSOLUTE AUTO 0.03 K/mm3 (0.00-0.05); IMMATURE GRAN PERCENT AUTO 0.3 % (0.0-0.4); LYMPHOCYTES ABSOLUTE AUTO 1.7 K/mm3 (1.0-4.8); MEAN CORPUSCULAR HEMOGLOBIN 28.2 pg (28.0-32.0); MEAN CORPUSCULAR HGB CONC 33.4 g/dl (32.0-36.0); MEAN CORPUSCULAR VOLUME 84.5 fl (83.0-99.0); MEAN PLATELET VOLUME 9.2 fl (9.4-12.3); MONOCYTES ABSOLUTE AUTO 0.6 K/mm3 (0.0-0.8); NEUTROPHILS PERCENT AUTO 72.6 % (41.0-71.0); PLATELET COUNT,PLT 383 K/mm3 (150-400); RED BLOOD CELL COUNT 5.24 M/mm3 (4.10-5.30); WHITE BLOOD CELL COUNT,WBC 9.57 K/mm3 (3.9-11.3)
[2023-03-25 16:10] LABS: ALANINE AMINOTRANSFERASE,ALT 42 U/L (14-59); ALKALINE PHOSPHATASE 70 U/L (46-116); ASPARTATE AMNIOTRANSFERASE,AST 24 U/L (15-37); BILIRUBIN TOTAL 0.3 mg/dL (0.2-1.0); BLOOD UREA NITROGEN,BUN 7 mg/dL (7-18); CALCIUM 9.2 mg/dL (8.5-10.1); CARBON DIOXIDE,CO2 22 mEq/L (21-32); CHLORIDE,CL 105 mEq/L (98-107); CREATININE 0.7 mg/dL (0.55-1.02); EST CRCL DRUG DOSING (CG) 99.63 mL/min; ESTIMATED GFR 118 mL/min (>60); GLUCOSE RANDOM 111 mg/dL (70-99); PROTEIN TOTAL,TP 8.1 g/dl (6.4-8.2); SODIUM,NA 138 mEq/L (136-145)
[2023-03-25 16:18] LABS: TROPONIN I HIGH SENSITIVITY < 4 pg/mL (<=51)
[2023-03-25 17:43] VITALS: PULSE 88
[2023-03-25 17:45] VITALS: BP 145/106
== END 2023-03-25 17:47 | disposition home or self-care (01) ==
LOC: JD.ED 14:56
DX: R07.89 Other chest pain (principal); I10 Essential (primary) hypertension; E66.9 Obesity, unspecified; Z68.39 Body mass index [BMI] 39.0-39.9, adult; Z86.16 Personal history of COVID-19; Z88.1 Allergy status to other antibiotic agents; Z91.040 Latex allergy status; Z88.8 Allergy status to other drugs, medicaments and biological substances; Z79.899 Other long term (current) drug therapy
CPT/HCPCS: 36415; 71045; 80053; 84484; 85025; 93005; 99285; A9270

== ENCOUNTER 2023-04-03 20:47 | Emergency (ER) | payer BC ==
[2023-04-03] MEDS ORDERED: Orphenadrine 100 MG Tab.ER ONE (21:57)
[2023-04-03 22:11] VITALS: BP 167/108; PULSE 51
[2023-04-04] MEDS ORDERED: Orphenadrine 100 MG Tab.ER PO ONE (21:48)
== END 2023-04-03 22:06 | disposition home or self-care (01) ==
LOC: JD.ED 20:47
DX: M62.838 Other muscle spasm (principal); E66.9 Obesity, unspecified; Z91.040 Latex allergy status; Z88.1 Allergy status to other antibiotic agents; Z88.2 Allergy status to sulfonamides; Z68.39 Body mass index [BMI] 39.0-39.9, adult
CPT/HCPCS: 93005; 99283; A9270; 93010; 99284

== ENCOUNTER 2023-09-10 00:23 | Emergency (ER) | payer BC ==
[2023-09-10 01:18] LABS: BASOPHILS PERCENT AUTO 0.4 % (0.0-1.0); EOSINOPHILS ABSOLUTE AUTO 0.3 K/mm3 (0.0-0.4); EOSINOPHILS PERCENT AUTO 3.4 % (0.0-6.0); HEMATOCRIT 36.8 % (37.0-47.0); HEMOGLOBIN 12.1 gm/dl (12.0-16.0); IMMATURE GRAN ABSOLUTE AUTO 0.03 K/mm3 (0.00-0.05); IMMATURE GRAN PERCENT AUTO 0.3 % (0.0-0.4); LYMPHOCYTES ABSOLUTE AUTO 2.4 K/mm3 (1.0-4.8); LYMPHOCYTES PERCENT AUTO 25.3 % (24.0-44.0); MEAN CORPUSCULAR HEMOGLOBIN 27.6 pg (28.0-32.0); MEAN CORPUSCULAR HGB CONC 32.9 g/dl (32.0-36.0); MEAN CORPUSCULAR VOLUME 83.8 fl (83.0-99.0); MEAN PLATELET VOLUME 8.8 fl (9.4-12.3); MONOCYTES ABSOLUTE AUTO 0.6 K/mm3 (0.0-0.8); MONOCYTES PERCENT AUTO 6.1 % (0.0-8.0); NEUTROPHILS ABSOLUTE AUTO 6.1 K/mm3 (1.8-7.7); NEUTROPHILS PERCENT AUTO 64.5 % (41.0-71.0); PLATELET COUNT,PLT 326 K/mm3 (150-400); RED BLOOD CELL COUNT 4.39 M/mm3 (4.10-5.30); WHITE BLOOD CELL COUNT,WBC 9.44 K/mm3 (3.9-11.3)
[2023-09-10] MEDS: Ondansetron 4 MG Tab.DIS PO ONE (01:26)
[2023-09-10 01:43] LABS: A/G RATIO 1.1 (1-2); ALANINE AMINOTRANSFERASE,ALT 36 U/L (14-59); ALBUMIN 3.5 g/dl (3.4-5.0); ALKALINE PHOSPHATASE 68 U/L (46-116); ANION GAP 12.7 (5-15); ASPARTATE AMNIOTRANSFERASE,AST 18 U/L (15-37); BILIRUBIN TOTAL 0.2 mg/dL (0.2-1.0); BLOOD UREA NITROGEN,BUN 12 mg/dL (7-18); BUN/CREATININE RATIO 17.1 (14-18); CALCIUM 8.9 mg/dL (8.5-10.1); CARBON DIOXIDE,CO2 25 mEq/L (21-32); CHLORIDE,CL 105 mEq/L (98-107); CREATININE 0.7 mg/dL (0.55-1.02); ESTIMATED GFR 118 mL/min (>60); GLUCOSE RANDOM 106 mg/dL (70-99); POTASSIUM,K 3.7 mEq/L (3.5-5.1); PROTEIN TOTAL,TP 6.8 g/dl (6.4-8.2); SODIUM,NA 139 mEq/L (136-145)
[2023-09-10 02:01] LABS: TROPONIN I HIGH SENSITIVITY < 4 pg/mL (<=51)
[2023-09-10 02:43] VITALS: BP 120/85; PULSE 78
== END 2023-09-10 02:37 | disposition home or self-care (01) ==
LOC: JD.ED 00:23
DX: R07.89 Other chest pain (principal); E66.9 Obesity, unspecified; Z68.41 Body mass index [BMI] 40.0-44.9, adult; Z91.040 Latex allergy status; Z88.1 Allergy status to other antibiotic agents; Z88.8 Allergy status to other drugs, medicaments and biological substances; Z79.899 Other long term (current) drug therapy
CPT/HCPCS: 36415; 71045; 80053; 84484; 85025; 93005; 99285; A9270

== ENCOUNTER 2023-12-17 18:41 | Emergency (ER) | payer BC ==
[2023-12-17 19:51] LABS: BASOPHILS PERCENT AUTO 0.4 % (0.0-1.0); EOSINOPHILS ABSOLUTE AUTO 0.2 K/mm3 (0.0-0.4); EOSINOPHILS PERCENT AUTO 2.9 % (0.0-6.0); HEMATOCRIT 36.6 % (37.0-47.0); HEMOGLOBIN 11.9 gm/dl (12.0-16.0); IMMATURE GRAN ABSOLUTE AUTO 0.02 K/mm3 (0.00-0.05); IMMATURE GRAN PERCENT AUTO 0.2 % (0.0-0.4); LYMPHOCYTES ABSOLUTE AUTO 1.9 K/mm3 (1.0-4.8); LYMPHOCYTES PERCENT AUTO 22.9 % (24.0-44.0); MEAN CORPUSCULAR HEMOGLOBIN 26.3 pg (28.0-32.0); MEAN CORPUSCULAR HGB CONC 32.5 g/dl (32.0-36.0); MEAN CORPUSCULAR VOLUME 80.8 fl (83.0-99.0); MEAN PLATELET VOLUME 8.9 fl (9.4-12.3); MONOCYTES ABSOLUTE AUTO 0.5 K/mm3 (0.0-0.8); NEUTROPHILS ABSOLUTE AUTO 5.6 K/mm3 (1.8-7.7); NEUTROPHILS PERCENT AUTO 67.6 % (41.0-71.0); PLATELET COUNT,PLT 356 K/mm3 (150-400); RED BLOOD CELL COUNT 4.53 M/mm3 (4.10-5.30)
[2023-12-17] MEDS: Sodium Chloride 0.9% 1,000 ML IV ONE (20:04)
[2023-12-17] MEDS: Ondansetron 4 MG/2 ML SDV IVPUSH ONE (20:05)
[2023-12-17] MEDS: Sodium Chloride 0.9% 10 ML Syringe FLUSH PRN (20:07)
[2023-12-17 20:13] LABS: ALBUMIN 3.3 g/dl (3.4-5.0); ANION GAP 14.4 (5-15); BILIRUBIN TOTAL 0.2 mg/dL (0.2-1.0); BUN/CREATININE RATIO 18.3 (14-18); CALCIUM 8.5 mg/dL (8.5-10.1); CREATININE 0.6 mg/dL (0.55-1.02); EST CRCL DRUG DOSING (CG) 115.16 mL/min; MAGNESIUM 1.8 mg/dL (1.8-2.4); POTASSIUM,K 3.4 mEq/L (3.5-5.1); PROTEIN TOTAL,TP 6.6 g/dl (6.4-8.2)
[2023-12-17] MEDS: Dicyclomine 10 MG Cap PO ONE (20:50)
[2023-12-17 20:51] LABS: APPEARANCE,URINE SLT CLOUDY (Clear); BILIRUBIN,URINE NEGATIVE (Negative); COLOR,URINE YELLOW (Yellow); GLUCOSE,URINE NEGATIVE (Negative); KETONES,URINE NEGATIVE (Negative); LEUKOCYTE ESTERASE,URINE 1+ (Negative); NITRITE,URINE NEGATIVE (Negative); OCCULT BLOOD,URINE 3+ (Negative); PH,URINE 7.5 (5.0-8.0); PROTEIN,URINE 1+ (Negative); UROBILINOGEN,URINE 0.2 (0.2-1.0)
[2023-12-17 21:02] LABS: BACTERIA,URINE FEW /hpf (FEW); MUCUS,URINE NOT SEEN /hpf (FEW); RBC,URINE 50-75 /hpf (0-5)
[2023-12-17] MEDS ORDERED: Naloxone 0.4 MG/ML SDV IVPUSH PRN (21:37)
[2023-12-17] MEDS: Iopamidol 612 MG/ML 30 ML SDV IVPUSH ONE (22:06)
[2023-12-17] MEDS: HYDROmorphone 1 MG/ML Syringe IVPUSH ONE (22:09)
[2023-12-18 01:34] VITALS: BP 130/79; PULSE 67
== END 2023-12-17 23:28 | disposition home or self-care (01) ==
LOC: JD.ED 18:41
DX: R10.12 Left upper quadrant pain (principal); R11.2 Nausea with vomiting, unspecified; R19.7 Diarrhea, unspecified; E66.9 Obesity, unspecified; Z79.899 Other long term (current) drug therapy; Z88.1 Allergy status to other antibiotic agents; Z88.8 Allergy status to other drugs, medicaments and biological substances; Z91.040 Latex allergy status; Z68.38 Body mass index [BMI] 38.0-38.9, adult
CPT/HCPCS: 36415; 74177; 74177-26; 80053; 81001; 83690; 83735; 84703; 85025; 87086; 96361; 96374; 96375; 99284; 99284-25; A9270-GY; J1170; J2405; J3490; J7030; Q9967

== ENCOUNTER 2024-11-29 06:41 | Day surgery (SDC) | payer BC ==
[~2024-11-29 06:41] MED LIST changes: +Sodium Chloride 0.9% 10 ML Syringe FLUSH SCH
[2024-11-29] MEDS ORDERED: Lidocaine 1% 4 ML ONE (06:50)
[2024-11-29] MEDS ORDERED: Midazolam 1 MG/ML 2 ML SDV ONE (06:51)
[2024-11-29] MEDS ORDERED: Propofol 200 MG/20 ML SDV ONE (06:51)
[2024-11-29] MEDS: Lactated Ringers 1,000 ML IV SCH (07:15)
[2024-11-29 08:44] VITALS: BP 120/72; PULSE 74
== END 2024-11-29 08:35 | disposition home or self-care (01) ==
LOC: JD.SDS 06:41
PROVIDERS: ATTEND Surgery
DX: K21.00 Gastro-esophageal reflux disease with esophagitis, without bleeding (principal); E66.9 Obesity, unspecified; F17.210 Nicotine dependence, cigarettes, uncomplicated; Z88.8 Allergy status to other drugs, medicaments and biological substances; Z68.37 Body mass index [BMI] 37.0-37.9, adult; Z79.899 Other long term (current) drug therapy; Z91.040 Latex allergy status
CPT/HCPCS: 43239; C9777; J2003; J2250; J2704; J7120; 00731

== ENCOUNTER 2024-12-28 21:04 | Emergency (ER) | payer BC ==
[2024-12-28] MEDS: Ketorolac 60 MG/2 ML SDV IM ONE (22:20)
[2024-12-28 22:24] VITALS: BP 146/84; PULSE 67
== END 2024-12-28 22:33 | disposition home or self-care (01) ==
LOC: JD.ED 21:04
DX: A31.0 Pulmonary mycobacterial infection (principal); R05.1 Acute cough; K21.9 Gastro-esophageal reflux disease without esophagitis; Z91.040 Latex allergy status; Z88.8 Allergy status to other drugs, medicaments and biological substances; Z79.899 Other long term (current) drug therapy; Z86.16 Personal history of COVID-19
CPT/HCPCS: 96372; 99283; A9270; J1885